=== PATIENT | female | born 1940 | race Caucasian/White ===

== ENCOUNTER 2020-12-27 10:42 | Outpatient (CLI) | payer MEDICARE, SELFPAY ==
--- NOTE | ~2020-12-27 | MM_ITS ---
EXAMINATION: MM screening [facility] BI w wilver HISTORY: Screening mammogram TECHNIQUE: Craniocaudal and mediolateral oblique 3-D tomosynthesis images were obtained and synthetic 2-D images were generated. CAD analysis was submitted and interpreted. COMPARISON: 10/19/2019, 10/04/2018, 10/11/2017 bilateral digital screening mammogram examinations BREAST PARENCHYMAL COMPOSITION: There are scattered areas of fibroglandular density. FINDINGS: There is a biopsy marker on the left. History of bilateral prior benign breast biopsies. Occasional benign calcifications are noted. There is no evidence of suspicious mass, calcification, or architectural distortion to suggest malign malia in either breast. There has been no suspicious interval change. IMPRESSION: 1. No mammographic evidence of malignancy. 2. Recommend routine screening mammography in one year. BI-RADS Category 2: Benign finding(s). Reviewed, dictated and finalized at location A. 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
== END 2020-12-27 10:43 | disposition home or self-care (01) ==
LOC: ANHIMG 10:45
PROVIDERS: Family Provider Internal Medicine; PCP Internal Medicine; Visit Provider Obstetrics & Gynecology
DX: Z12.31 Encounter for screening mammogram for malignant neoplasm of breast (principal)
CPT/HCPCS: 77063; 77067

== ENCOUNTER 2021-01-23 07:39 | Outpatient (CLI) | payer MEDICARE, SELFPAY ==
--- NOTE | ~2021-01-23 | US_ITS ---
EXAMINATION: US abdomen complete EXAM DATE: 01/23/2021 08:35 INDICATION: R10.84 - Generalized abdominal pain. TECHNIQUE: Multiple grayscale and Doppler images of the complete abdomen were obtained (by a technolo gist who performed the scan) and subsequently reviewed. There is no prior study for comparison. FINDINGS: The abdominal aorta is normal in caliber. Visualized portion IVC is patent. The pancreatic head a nd body are normal in appearance. The pancreatic tail is not visualized. The liver has normal echogenicity and contour. There are no focal liver lesions identified. There is no evidence of intrahepatic biliary duct dilation. Portal venous flow was seen in the hepatopedal , normal direction and has normal Doppler waveform. Common bile duct measures 6 mm, which is normal. The gallbladder wall is normal in thickness, with ex pected amount of distention. No sonographic evidence of pericholecystic fluid. There is cholelithia sis. Technologist performing exam reports patient did not demonstrate sonographic Eason's sign. P alexandro note that this sign is less reliable in patients who have received pain medication. Right kidney: There is normal contour and echogenicity. It measures 8.1 x 3.8 x 4.2 centimeters. T here are no focal renal lesions identified. There is no hydronephrosis. Left kidney: There is normal contour and echogenicity. It measures 9.5 x 4.5 x 4.5 centimeters. Th ere are no focal renal lesions identified. There is no hydronephrosis. The spleen measures 7.6 centimeters and is morphologically normal. IMPRESSION: Cholelithiasis. Reviewed, dictated and finalized at location B. CONSULTANT IMPRESSION: Cholelithiasis.
== END 2021-01-23 07:40 | disposition home or self-care (01) ==
PROVIDERS: PCP Internal Medicine; Visit Provider Nurse Practitioner
DX: R10.84 Generalized abdominal pain (principal); K80.20 Calculus of gallbladder without cholecystitis without obstruction
CPT/HCPCS: 76700

== ENCOUNTER 2021-01-31 09:35 | Outpatient (CLI) | payer MEDICARE, SELFPAY ==
--- NOTE | ~2021-01-31 | NM_ITS ---
EXAMINATION: NM hepatobiliary wo pharm DATE: 01/31/2021 12:13 INDICATION: Generalized abdominal pain. COMPARISON: Ultrasound 01/23/2021 TECHNIQUE: 5.1 mCi Tc-99m mebrofenin (Choletec) was administered intravenously. Scintigraphic images of the abdomen were obtained for one hour. Then, the patient drank 8 oz Ensure, and imaging was cont inued for 60 minutes. FINDINGS: There is normal clearance of radiotracer from the blood pool. There is homogeneous tracer u ptake by the liver. Activity progresses to the bowel and gallbladder. Gallbladder ejection fraction (GBEF) was 31%. Note that with this technique, normal GBEF >= 33%. IMPRESSION: 1. Low gallbladder ejection fraction, consistent with gallbladder dysfunction and/or chronic cholecy stitis. Reviewed, dictated and finalized at location A. IMPRESSION: 1. Low gallbladder ejection fraction, consistent with gallbladder dysfunction and/or chronic cholecystitis.
== END 2021-01-31 09:36 | disposition home or self-care (01) ==
PROVIDERS: PCP Internal Medicine; Visit Provider Internal Medicine
DX: R10.84 Generalized abdominal pain (principal)
CPT/HCPCS: 78226; A9537

== ENCOUNTER 2021-02-25 03:31 | Inpatient (IN) | payer MEDICARE, SELFPAY ==
[2021-02-25] VITALS (9 sets, daily range): BP systolic 131–165; BP diastolic 61–73; PULSE 57–72; RESP 16–18; TEMP 36.2–36.3; O2SAT 95–99; BMI 25.8
--- NOTE | ~2021-02-25 | XR_ITS ---
EXAMINATION: XR abdomen NG/feed tube insert EXAM DATE: 02/25/2021 05:54 INDICATION: Nasogastric tube placement. TECHNIQUE: Frontal projection(s) of the abdomen for interpretation. Comparison is made to prior exami nation from 09/23/2018. FINDINGS: Feeding tube tip projects over stomach, side-port is at the gastroesophageal junction. Thi s could be safely advanced 5 cm. Contrast within nonobstructed renal calyces. Nonspecific upper abdom inal bowel gas pattern, but please correlate with CT which demonstrated dilated small bowel. IMPRESSION: Feeding tube tip in stomach, but could be safely advanced 5 cm. Reviewed, dictated and finalized at location A.
--- NOTE | ~2021-02-25 | XR_ITS ---
EXAMINATION: XR abdomen NG/feed tube rechec EXAM DATE: 02/25/2021 09:57 INDICATION: NG advancement . TECHNIQUE: Frontal projection(s) of the abdomen for interpretation. Comparison is made to prior exami nation from earlier same date. FINDINGS: Feeding tube has been advanced, both tip and side-port project over gastric body and cardi a respectively, expected position. Imaged portion of lungs are clear. Single loop of moderately diste nded small bowel in the left upper quadrant, correlate with CT scan earlier same date. Stomach appear s decompressed. IMPRESSION: 1. Feeding tube in position. 2. Moderately dilated jejunal loop, partial versus early complete obstruction. Reviewed, dictated and finalized at location A.
--- NOTE | ~2021-02-25 | CT_ITS ---
EXAMINATION: CT abdomen pelvis w con EXAM DATE: 02/25/2021 04:27 INDICATION: Low abdominal pain. TECHNIQUE: Spiral CT of the abdomen and pelvis was performed following intravenous injection of 100 m L Omnipaque 350. Axial, coronal and sagittal images of the abdomen and pelvis were reviewed. The do se-length product (DLP) for this examination was 747.70 mGy-cm. The exposure was tailored according to patient size (auto mA exposure control), and iterative reconstruction (ASIR) was used as additiona l dose reduction technique. Comparison is made to prior examination from 09/23/2018. FINDINGS: Moderately distended jejunum with transition point indicated on axial image 96, but there i s small amount of contents within the small bowel distal to this transition, appearance is most consi stent with partial small bowel obstruction. Can't exclude early complete obstruction. No pneumatosis. The liver, spleen, adrenal glands and pancreas are unremarkable. Single small calcified gallstone, g allbladder otherwise unremarkable. Portal and splenic veins are patent. Kidneys enhance symmetrical ly. There is no hydronephrosis. The uterus is anteverted and morphologically normal. The bladder is unremarkable. There is no retroperitoneal or pelvic lymphadenopathy. There is mild scattered a rteriosclerotic disease. The appendix is normal. There is expected amount of colonic stool. No free intraperitoneal gas. The heart is normal in size. There are no pericardial or pleural effusions. Linear lingular and rig ht middle lobe subsegmental atelectasis. There are no osteoblastic or osteolytic lesions identified. IMPRESSION: Small bowel obstruction, could be partial. Can't exclude early complete obstruction. Reviewed, dictated and finalized at location A. IMPRESSION: Small bowel obstruction, could be partial. Can't exclude early comp lete obstruction.
--- NOTE | ~2021-02-25 | XR_ITS ---
EXAMINATION: XR sm bowel follow through WS EXAM DATE: 02/25/2021 13:20 INDICATION: Small bowel obstruction abnormal CT, small bowel obstruction. TECHNIQUE: Small bowel series was performed with water-soluble solution. Pulsed dose reduction fluo roscopy was used with fluoroscopic time of 0.0 minutes. A total of 3 overhead images obtained for th e exam. Correlation made to KUB earlier same date. FINDINGS: On the 15 minute projection there are several loops of moderately distended jejunum. By 30 minutes contrast had made it beyond these to normal calibered ileum, and the descending colon. The te rminal ileum is normal in appearance, was well visualized on overhead images. IMPRESSION: 1. Moderately distended jejunum, low-grade small bowel obstruction. 2. Normal transit time 30 minutes. Reviewed, dictated and finalized at location A.
--- NOTE | 2021-02-25 03:43 | ED.ABDPAIN ---
HPI - Abdominal Pain General Chief Complaint: Abdominal Pain Stated Complaint: abd pain/ n/v Time Seen by Provider: 02/25/21 03:43 History of Present Illness HPI narrative: She began haivng lower abdominal pain around 1600 yesterday. This was cramp like without radiation. The pain has since greatley improved, but she continues to have waves of severe nausea. This isassociated with a sour taste in her mouth. Not vomiting, diarrhea, constipation, fever, dysuria. She was recently diagnosed with gall stones and is to have surgery in the near future. Related Data Home Medications Medication Instructions Recorded Confirmed amlodipine 5 mg tablet 5 mg PO QACDINNER 11/02/19 02/20/21 psyllium husk 0.52 gram capsule 0.52 gm PO DAILY 11/02/19 02/20/21 rivaroxaban 20 mg tablet 20 mg PO QACDINNER 11/02/19 02/20/21 sotalol 80 mg tablet 40 mg PO HS tablet 11/02/19 02/20/21 sotalol 80 mg tablet 80 mg PO QAM tablet 11/02/19 02/20/21 cholecalciferol (vitamin D3) 25 25 mcg PO DAILY 09/10/20 02/20/21 mcg (1,000 unit) capsule lactobacillus combination no.9 4 4,000 mmu cells PO DAILY 09/10/20 02/20/21 billion cell capsule trimethoprim 100 mg tablet 100 mg PO HS tablet 09/10/20 02/20/21 zinc 50 mg tablet 50 mg PO DAILY 09/10/20 02/20/21 calcium carbonate-vitamin D3 1 tablet PO DAILY 02/20/21 02/20/21 [Calcium + D] omeprazole 20 mg PO DAILY 02/20/21 02/20/21 oxybutynin chloride 10 mg PO DAILY 02/20/21 02/20/21 Allergies Allergy/AdvReac Type Severity Reaction Status Date / Time amoxicillin Allergy Unknown Chest Verified 02/20/21 14:50 tightness/THROAT TIGHTNESS ampicillin Allergy Unknown CHEST Verified 02/20/21 14:50 TIGHTNESS/THROAT TIGHTNESS ciprofloxacin Allergy Unknown UNSURE Verified 02/20/21 14:50 meperidine Allergy Unknown N/V, Verified 02/20/21 14:50 DIZZINESS tramadol Allergy Unknown Nausea Verified 02/20/21 14:50 STEROIDS Allergy Severe SEVERE Uncoded 02/20/21 14:50 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 Review of Systems Review of Systems: All systems reviewed & are unremarkable except as noted in HPI and below Constitutional: Constitutional: Denies chills, Denies fever(s) and Denies weakness ENT: Reports system reviewed and no additional complaints, except as documented Cardiovascular: Cardiovascular: Denies chest pain Respiratory: Respiratory: Denies dyspnea Gastrointestinal: Gastrointestinal: Reports abdominal pain, Reports bloating, Denies constipation, Denies diarrhea, Reports nausea and Denies vomiting Genitourinary: Genitourinary: Denies hematuria and Denies dysuria Musculoskeletal: Musculoskeletal: Denies back pain Neurologic: Reports system reviewed and no additional complaints, except as documented [facility] Past Medical History Medical History Afib Cholecystitis Chronic UTI (urinary tract infection) GERD (gastroesophageal reflux disease) History of blood clots History of migraine headaches HTN (hypertension), benign Surgical History Surgical History H/O heart surgery cardioversion for AFIB History of left knee replacement Family History Family History Sibling Hypertension Asthma Family history of diabetes mellitus in first degree relative Father Hypertension Malignant neoplasm of prostate Family history of malignant neoplasm of urinary bladder Mother Cerebrovascular accident Uterine cancer Social History Social History Smoking packs per day: 0.75 Smoking cigarettes per day: 15.0 Years smoked: 8 Smoking pack-years: 6.00 Smoking status: Former smoker Second hand tobacco smoke exposure: No Smoking end date: 05/15/85 Alcohol intake: former Substance use: never Addition
[2021-02-25] MEDS: ONDANSETRON INJ 4 MG/2 ML VIAL IV PUSH (03:55)
[2021-02-25 03:56] LABS: Basophils Percent Auto 0.4 % (0.2-1.2); Eosinophils Absolute Auto 0.1 K/mm3 (0-0.3); Hematocrit 45.4 % (37.0-47.0); Hemoglobin 15.3 g/dL (12.0-15.0); Immature Granulocyte Absolute 0.03 K/mm3 (0.00-0.031); Immature Granulocyte Percent A 0.4 % (0-0.5); Lymphocytes Absolute Auto 2.42 K/mm3 (0.9-3.2); Lymphocytes Percent Auto 29.7 % (18.3-44.2); Mean Corpuscular HGB Conc 33.7 g/dl (32-36); Mean Corpuscular Hemoglobin 31.3 pg (26-34); Mean Corpuscular Volume 92.8 fl (80-100); Mean Platelet Volume 9.4 fl (7.4-10.4); Monocytes Absolute Auto 0.6 K/mm3 (0.1-0.6); Monocytes Percent Auto 6.8 % (2.6-8.5); Neutrophils Percent Auto 61.7 % (45.5-73.1); Platelet Count Result 268 k/mm3 (150-375); Red Blood Count 4.89 M/mm3 (4.2-5.4); Red Cell Distribution Width 13.2 % (11.5-14.5); White Blood Count 8.1 K/mm3 (4.5-10.0)
[2021-02-25 04:10] LABS: Alanine Aminotransferase 17 U/L (4-35); Albumin Level 4.7 g/dL (3.5-5.1); Alkaline Phosphatase 79 U/L (38-126); Anion Gap 5 mmol/L (8-16); Aspartate Amino Transferase 23 U/L (14-36); Bilirubin,Total 0.4 mg/dL (0.2-1.3); Blood Urea Nitrogen 11 mg/dL (7-17); Calcium 9.6 mg/dL (8.4-10.2); Carbon Dioxide 32 mmol/L (22-30); Chloride 97 mmol/L (98-107); Estimated CRCL calculation 57 ml/min; Estimated Glomerular Filt Rate > 60; Glucose 129 mg/dL (65-105); Lipase 72 U/L (23-300); Potassium 3.8 mmol/L (3.4-5.0); Sodium 134 mmol/L (137-145)
[2021-02-25] MEDS: METOCLOPRAMIDE HCL INJ 10 MG/2 ML VIAL IV PUSH (04:41)
[2021-02-25] MEDS: SODIUM CHLORIDE 0.9% IV 1,000 ML 999 ML IV CONT (04:41)
[2021-02-25] MEDS: PANTOPRAZOLE SODIUM IV 40 MG VIAL IV PUSH (04:41)
[2021-02-25 04:56] LABS: Add Urine Microscopic? YES; Appearance Urine Cloudy (Clear); Bilirubin Urine Negative (Negative); Blood Urine Negative (Negative); Color Urine Yellow (Yellow); Glucose Urine UA Negative (Negative); Ketones Urine Trace mg/dL (Negative); Leukocyte Esterase Ur Negative LEU/UL (Negative); Nitrate Urine Negative (Negative); Protein Urine Negative (Negative); Specific Grav Ur 1.011 (1.001-1.035); Urobilinogen Urine Negative mg/dL (<2.0)
[2021-02-25 05:03] LABS: RBC Urine 0-2 /hpf (0-2); Squamous Epithelial Cell Urine Rare /hpf (Few); WBC Urine 0-3 /hpf
[2021-02-25] MEDS: fentaNYL CITRATE INJ (*CRX) 100 MCG/2 ML VIAL 50 MCG IV PUSH (05:43)
--- NOTE | 2021-02-25 06:36 | PC.NURSE ---
This patient, Roxana Barragan, was admitted to 3 Med Surg Room 302-01 @ 06 . Patient/family oriented to hospital policies and general routines including ID bracelet, bed and alarms, visiting hours, pain management, procedures, bathroom and other care routines, personal items, smoking policy, room service/diet, and visiting hours. Information on how to activate the Rapid Response Team has been discussed. Patient/Family are encouraged to report perceived risks to care and to ask questions if they do not understand what they are told or what they should do.
[2021-02-25] MEDS: LACTATED RINGERS 1,000 ML 100 ML IV CONT (09:40)
--- NOTE | 2021-02-25 10:56 | PM.IMHP ---
H&P: HPI History of Present Illness Date/Time: 02/25/21 09:20 Chief Complaint: Abdominal pain Narrative: This is a 80-year-old female with a history of atrial fibrillation on chronic anticoagulation and hypertension, who presented to the ER with complaints of abdominal pain. She was recently seen in our office by Dr. Sorensen for chronic cholecystitis and was planning to be set up as an outpatient for a cholecystectomy. She reports that she has been having intermittent epigastric and RLQ abdominal pain that she has attributed to her gallbladder. Yesterday afternoon, she developed epigastric pain that worsened over the next few hours. She reports this is different than her gallbladder pain. She reports the pain began to spread across her entire abdomen and would come in waves of cramping pain. She developed bloating and nausea, but no vomiting. She reports that she was passing a lot of gas yesterday afternoon when symptoms were at their worst, but has not passed gas since admission. She also reports having smaller bowel movements than normal every morning for the past 3 mornings. She has also been eating a strict diet that includes eggs, cottage cheese, and large amounts of steamed broccoli. She had eaten a large serving of the broccoli for lunch yesterday prior to the onset of her symptoms. Due to the severe abdominal pain, she presented to the ER for further evaluation. CT scan of the abdomen and pelvis showed moderately distended jejunum with a transition point, but with a small amount of contents within the small bowel distal to this transition. Suggesting a partial small bowel obstruction. Labs were unremarkable. NG tube was placed. Our service was contacted by the ED physician for the partial small bowel obstruction. She was admitted to the medical floor and is now seen in this setting. She reports that her bloating and abdominal pain have improved. No flatus yet today, and her last BM was yesterday morning. Main complaint is the discomfort of the NG tube. No other complaints. No history of previous abdominal surgery. She last took her Xarelto around 4 pm last evening. Review of Systems Review of Systems: All systems reviewed & are unremarkable except as noted in HPI and below Constitutional: Constitutional: Reports as per HPI, Denies chills, Denies fatigue and Denies fever(s) Eyes: Eyes: Reports no additional eye complaints and Denies change in vision ENT: Reports system reviewed and no additional complaints, except as documented, Reports Normal hearing present and Denies dizziness Cardiovascular: Cardiovascular: Reports no additional cardiovascular complaints, Denies chest pain, Denies leg edema and Denies dyspnea Respiratory: Respiratory: Reports no additional respiratory complaints, Denies cough and Denies dyspnea Gastrointestinal: Gastrointestinal: Reports as per HPI, Reports no additional gastrointestinal complaints, Reports abdominal pain, Denies melena, Reports bloating, Denies hematochezia, Reports change in bowel habits (smaller stools), Reports GI cramping, Denies diarrhea, Denies loose stools, Reports nausea and Denies vomiting Genitourinary: Genitourinary: Denies hematuria and Denies dysuria Musculoskeletal: Musculoskeletal: Denies abnormal gait, Denies deformity, Denies joint swelling, Denies numbness and Denies tingling Integumentary/Breasts: Skin/Breast: Denies wounds and Denies jaundice Neurologic: Reports system reviewed and no additional complaints, except as documented, Reports Normal hearing present, Denies abnormal gait, Denies dizziness, Denies focal weakness, Denies numbness and Denies tingling Psychiatric: Psychiatric: Denies anxiety and Denies depression [facility] Past Medical History Medical History Afib Cholecystitis Chronic UTI (urinary tract infection) GERD (gastroesophageal reflux disease) History of blood clots 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
[2021-02-25] MEDS: amLODIPine BESYLATE 5 MG TABLET PO (17:09)
[2021-02-25] MEDS: SOTALOL HCL 40 MG TABLET PO (21:08)
[2021-02-26] MEDS: LACTATED RINGERS 1,000 ML 50 ML IV CONT (01:25)
[2021-02-26 06:00] VITALS: BP 116/51; PULSE 64; RESP 16; TEMP 36.4; O2SAT 98
[2021-02-26 07:59] VITALS: PULSE 73; O2SAT 97
[2021-02-26 09:46] VITALS: PULSE 68
[2021-02-26] MEDS: SOTALOL HCL 80 MG TABLET PO (09:46)
--- NOTE | 2021-02-26 12:03 | PM.DS ---
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 She had never had abdominal surgery before and has never had an obstruction. She was admitted and NG tube was placed. She did begin passing flatus shortly after being admitted. A gastrografin SBFT was obtained on 02/25/21 and this showed no evidence of bowel obstruction. She began having BMs. NG was removed on 02/25 and she was started on clear liquids. On 02/26 her diet was advanced as tolerated and she had no recurrent symptoms. She was discharged on 02/26. Status at Discharge Functional status at discharge: independent ambulation Overall status at discharge: patient is back to baseline Time Spent with Patient Time attestation: Total time spent providing and/or coordinating discharge services: Time spent: Less than 30 minutes Exam GI: Inspection: normal to inspection and non-distended GI Palp: Yes Soft to palpation, No Tenderness to palpation present (GI) and No Guarding due to palpation present (GI) Percussion: Yes normal to percussion Auscultation: normal bowel sounds DS: Data Imaging Radiologist's impression: ITS Impressions Abdomen X-Ray 02/25/21 06:31 IMPRESSION: Feeding tube tip in stomach, but could be safely advanced 5 cm. Abdomen/Pelvis CT 02/25/21 07:31 IMPRESSION: Small bowel obstruction, could be partial. Can't exclude early complete obstruction. Abdomen X-Ray 02/25/21 10:02 IMPRESSION: 1. Feeding tube in position. 2. Moderately dilated jejunal loop, partial versus early complete obstruction. Small Bowel X-Ray 02/25/21 13:24 IMPRESSION: 1. Moderately distended jejunum, low-grade small bowel obstruction. 2. Normal transit time 30 minutes. Discharge Plan Discharge Attending physician on discharge: Kevin Bellamy Discharging Clinician: Kevin Bellamy Patient Disposition: Home, Self-Care Activity: unlimited Diet: as tolerated Discharge Instructions: Stay on soft, bland diet for 1 week Patient Instructions: Antibiotic Form, Safe Use of Anticoagulants (GEN), Blood Thinners (GEN) Stand Alone Forms: General Discharge Information Follow-up/Referrals: Benjamin Rees DO [Primary Care Provider] - Follow Up with Primary Dr Discharge Medications: Continued trimethoprim 100 mg tablet 100 mg PO HS RF: 0 zinc 50 mg tablet 50 mg PO DAILY RF: 0 cholecalciferol (vitamin D3) 25 mcg (1,000 unit) capsule 25 mcg PO DAILY RF: 0 Adult 50 Plus Probiotic 4 billion cell capsule 4,000 mmu cells PO DAILY RF: 0 fluticasone propionate [Allergy Relief (fluticasone)] 50 mcg/actuation spray,suspension 1 spray NASAL DAILY PRN (Reason: allergy symptoms) Qty: 15.8 RF: 3 amlodipine 5 mg tablet 5 mg PO QACDINNER RF: 0 Xarelto 20 mg tablet 20 mg PO HS RF: 0 psyllium husk [Metamucil] 0.52 gram capsule 0.52 gm PO DAILY RF: 0 sotalol 80 mg tablet 80 mg PO QAM RF: 0 sotalol 80 mg tablet 40 mg PO HS RF: 0
[2021-02-26] MEDS: SALINE 0.65% NAS SOLN 44 ML BTL 1 SPRAY NASAL (13:52)
[2021-02-26 14:00] VITALS: BP 138/57; PULSE 63; RESP 16; TEMP 36.4; O2SAT 100
--- NOTE | 2021-02-27 07:33 | PC.NURSE ---
02/27/21 0725 patient called with concern that her nose is bleeding and has been since ng tube removed. patient wanted Dr. Bellamy number and office number was provided at this time. patient states that she will call after 8 am this morning. patient encouraged to go to ER if lightheaded/dizzy, or worsening nose bleed. patient verbalizes understanding.
== END 2021-02-26 14:20 | disposition home or self-care (01) | DRG 389 ==
LOC: ANHED 05:34 → ANH3MEDSUR 05:43
PROVIDERS: Admitting Provider Surgery; Emergency Provider Emergency Medicine; PCP Internal Medicine; Visit Provider Surgery
DX: K56.690 Other partial intestinal obstruction (principal); I48.20 Chronic atrial fibrillation, unspecified; I10 Essential (primary) hypertension; K21.9 Gastro-esophageal reflux disease without esophagitis; Z96.652 Presence of left artificial knee joint; Z79.01 Long term (current) use of anticoagulants; Z87.891 Personal history of nicotine dependence
CPT/HCPCS: 36415; 74018; 74177; 74250; 80053; 81001; 83690; 85025; 96361; 96374; 96375; 99285; A9270; C9113; J2405; J2765; J3010; J7030; J7120; Q9967

== ENCOUNTER → 2021-03-01 02:29 | Outpatient (CLI) | payer MEDICARE, SELFPAY ==
[2021-03-01 19:44] LABS: SARS-CoV-2 RNA PCR Negative
== END ==
PROVIDERS: PCP Internal Medicine; Visit Provider Surgery
DX: Z01.812 Encounter for preprocedural laboratory examination (principal); Z20.822 Contact with and (suspected) exposure to COVID-19
CPT/HCPCS: C9803; U0003; U0005

== ENCOUNTER 2021-03-05 02:30 | Day surgery (SDC) | payer MEDICARE, SELFPAY ==
[2021-02-20 15:01] VITALS: BMI 26.1
[2021-03-05] VITALS (7 sets, daily range): BP systolic 107–148; BP diastolic 55–70; PULSE 50–62; RESP 10–18; TEMP 36.2–37.3; O2SAT 97–100
--- NOTE | 2021-03-05 06:02 | ECG_ITS ---
Measurements Intervals Sacul Rate: 51 P: 56 MA: 198 QRS: 11 QRSD: 93 T: 35 QT: 492 QTc: 454 Interpretive Statements SINUS BRADYCARDIA BORDERLINE R WAVE PROGRESSION, ANTERIOR LEADS BORDERLINE ECG Electronically Signed On 03-05-2021 10:00:26 CDT by Jsoe Young D.O.
--- NOTE | 2021-03-05 07:03 | WPDHPUPDATE1 ---
History and Physical Update Update Date/Time: 03/05/21 07:03 History and Physical has been reviewed, including an updated exam of the patient. There are NO changes in the patient's condition. Risks, benefits, and alternatives have been discussed and questions answered. Patient agrees to proceed with procedure.
[2021-03-05] MEDS: LACTATED RINGERS 1,000 ML 30 ML IV CONT ×2 (09:14→11:01)
[2021-03-05] MEDS: KETOROLAC 15 MG/ML VIAL (*BKC) IV PUSH (09:15)
--- NOTE | 2021-03-05 09:37 | WPDANESEPPF ---
Anes - Initial Pre Proc Eval Procedure: Operation Date: 03/05/21 10:30 Proposed Procedures p Laparoscopic Cholecystectomy - Marvin Sorensen MD Date/Time: 03/05/21 09:37 Surgeon: Marvin Sorensen MD Pre Op Diagnosis: chronic cholecystitis with stones Patient Data Age: 80 Gender: F Height: 5 ft 8 in Weight: 78 kg Allergies Allergy/AdvReac Type Severity Reaction Status Date / Time amoxicillin Allergy Unknown Chest Verified 02/20/21 14:50 tightness/THROAT TIGHTNESS ampicillin Allergy Unknown CHEST Verified 02/20/21 14:50 TIGHTNESS/THROAT TIGHTNESS ciprofloxacin Allergy Unknown UNSURE Verified 02/20/21 14:50 meperidine AdvReac Unknown N/V, Verified 03/05/21 06:04 DIZZINESS tramadol AdvReac Unknown Nausea Verified 03/05/21 06:04 STEROIDS Allergy Severe SEVERE Uncoded 02/20/21 14:50 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 Home Medications Medication Instructions Recorded Confirmed Type amlodipine 5 mg tablet 5 mg PO QACDINNER 11/02/19 02/25/21 History psyllium husk 0.52 gram capsule 0.52 gm PO DAILY 11/02/19 02/25/21 History rivaroxaban 20 mg tablet 20 mg PO HS 11/02/19 02/25/21 History sotalol 80 mg tablet 40 mg PO HS tablet 11/02/19 02/25/21 History sotalol 80 mg tablet 80 mg PO QAM tablet 11/02/19 02/25/21 History cholecalciferol (vitamin D3) 25 25 mcg PO DAILY 09/10/20 02/25/21 History mcg (1,000 unit) capsule fluticasone propionate 50 1 spray NASAL DAILY PRN #15.8 ml 09/10/20 02/25/21 Rx mcg/actuation nasal spray,suspension lactobacillus combination no.9 4 4,000 mmu cells PO DAILY 09/10/20 02/25/21 History billion cell capsule trimethoprim 100 mg tablet 100 mg PO HS tablet 09/10/20 02/25/21 History zinc 50 mg tablet 50 mg PO DAILY 09/10/20 02/25/21 History calcium carbonate-vitamin D3 1 tablet PO DAILY 02/20/21 02/25/21 History omeprazole 20 mg PO DAILY 02/20/21 02/25/21 History oxybutynin chloride 10 mg PO DAILY 02/20/21 02/25/21 History Laboratory Tests 03/05/21 03/05/21 08:54 08:54 Amylase Pending Lipase Pending Patient hx anesthesia problems: none Family hx anesthesia problems: none PMFSH Past Medical History Medical History Afib Cholecystitis Chronic UTI (urinary tract infection) GERD (gastroesophageal reflux disease) History of blood clots 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 Does not have a healthcare power of senior trial attorney. She designates her daughter, Nicolle Suarez, to be her medical decision maker if needed. 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
[2021-03-05 09:50] LABS: Amylase 49 U/L (30-110)
[2021-03-05 09:52] LABS: Lipase 59 U/L (23-300)
[2021-03-05] MEDS: CLINDAMYCIN 900 MG/D5W 50 ML 900 MG/50 ML PIGGYBACK 50 MG IVPB (10:04)
[2021-03-05] MEDS: BUPIVACAINE/EPINEPHRINE 0.5% 30 ML VIAL INFILTRATE (10:44)
--- NOTE | 2021-03-05 11:09 | PM.PROC ---
Procedure Note - Detailed Date of procedure: 03/05/21 Pre-op diagnosis: chronic cholecystitis with stones Chronic cholecystitis, cholelithiasis Post-op diagnosis: same Procedure performed: Laparoscopic cholecystectomy Description of procedure: The patient was taken to surgery and induced into general anesthesia. The abdomen was prepped and draped. Trocars were placed in the usual fashion using 0.5% Marcaine with epinephrine and applied Medical optical trocars. A 5 millimeter camera was used. The gallbladder was decompressed with a laparoscopic aspirator. The cholecystotomy was closed with a Vicryl endo-loop. The gallbladder was retracted anterosuperiorly. Adhesions to the gallbladder were taken down so that the cholecystohepatic triangle was exposed. Traction was placed on the infundibulum. The cystic duct and cystic artery were dissected out very clearly. The gallbladder was dissected off the liver at its lower 3rd. Critical view was achieved. We securely clipped and divided the cystic duct and cystic artery. The gallbladder was then further retracted so that the peritoneal attachments to the liver could be divided. Once the gallbladder was freed entirely, it was placed in an Endo-Catch bag and retrieved through the 10 11 epigastric trocar site. The epigastric trocar was then replaced. We reviewed the right upper quadrant. It was irrigated and suctioned. All looked good with no evidence of bleeding or bile leakage. We evacuated CO2 and removed the trocar sleeves. Skin wounds were closed with subcuticular 4 O Monocryl skin suture. The wounds were dressed with Exofin surgical adhesive. Patient was awakened and taken to recovery in good condition. Sponge and needle counts were correct x2. Anesthesia: GETA and local (0.5% Marcaine with epinephrine) Surgeon: Marvin Sorensen MD Application Security Engineer: Lashell ANAYA Estimated blood loss (mL): 5 Drains: No Packing: No Pathology: yes (Gallbladder) Complications: None Condition: stable Disposition: PACU Findings: Mild chronic inflammation, no gallstones noted. No biliary ductal dilatation, no liver abnormalities.
--- NOTE | 2021-03-05 11:22 | SUR.PHASEI ---
O2 removed at 1121.
[2021-03-05] MEDS: ONDANSETRON INJ 4 MG/2 ML VIAL IV PUSH (12:08)
== END 2021-03-05 12:47 | disposition home or self-care (01) ==
PROVIDERS: PCP Internal Medicine; Visit Provider Surgery
PROC: 0FT44ZZ Resection of Gallbladder, Percutaneous Endoscopic Approach (ICD-10-PCS; CPT 47562; principal; 2021-03-05 10:30)
DX: K80.10 Calculus of gallbladder with chronic cholecystitis without obstruction (principal); I48.91 Unspecified atrial fibrillation; K21.9 Gastro-esophageal reflux disease without esophagitis; I10 Essential (primary) hypertension; Z86.711 Personal history of pulmonary embolism; Z86.718 Personal history of other venous thrombosis and embolism; Z79.01 Long term (current) use of anticoagulants; Z87.891 Personal history of nicotine dependence
CPT/HCPCS: 47562; 36415; 82150; 83690; 86850; 86900; 86901; 88304; 93005; C1713; J1100; J1885; J2405; J2704; J2710; J3010; J7120

== ENCOUNTER 2021-08-29 10:39 | Outpatient (CLI) | payer MEDICARE, SELFPAY ==
[2021-08-29 11:12] LABS: Basophils Percent Auto 0.7 % (0.2-1.2); Eosinophils Absolute Auto 0.2 K/mm3 (0-0.3); Hematocrit 41.9 % (37.0-47.0); Hemoglobin 13.9 g/dL (12.0-15.0); Immature Granulocyte Absolute 0.02 K/mm3 (0.00-0.031); Immature Granulocyte Percent A 0.4 % (0-0.5); Lymphocytes Absolute Auto 2.42 K/mm3 (0.9-3.2); Lymphocytes Percent Auto 42.6 % (18.3-44.2); Mean Corpuscular HGB Conc 33.2 g/dl (32-36); Mean Corpuscular Hemoglobin 32.6 pg (26-34); Mean Corpuscular Volume 98.1 fl (80-100); Monocytes Absolute Auto 0.5 K/mm3 (0.1-0.6); Monocytes Percent Auto 9.2 % (2.6-8.5); Neutrophils Absolute Auto 2.5 K/mm3 (1.3-6.7); Neutrophils Percent Auto 44.1 % (45.5-73.1); Platelet Count Result 257 k/mm3 (150-375); Red Blood Count 4.27 M/mm3 (4.2-5.4); Red Cell Distribution Width 13.3 % (11.5-14.5); White Blood Count 5.7 K/mm3 (4.5-10.0)
[2021-08-29 11:48] LABS: Alanine Aminotransferase 17 U/L (4-35); Albumin Level 4.1 g/dL (3.5-5.1); Alkaline Phosphatase 55 U/L (38-126); Anion Gap 6 mmol/L (8-16); Aspartate Amino Transferase 20 U/L (14-36); Bilirubin,Total 0.3 mg/dL (0.2-1.3); Blood Urea Nitrogen 14 mg/dL (7-17); Calcium 8.9 mg/dL (8.4-10.2); Carbon Dioxide 29 mmol/L (22-30); Chloride 100 mmol/L (98-107); Estimated Glomerular Filt Rate > 60; Glucose 79 mg/dL (65-110); Potassium 4.4 mmol/L (3.4-5.0); Sodium 135 mmol/L (137-145)
== END 2021-08-29 10:40 | disposition home or self-care (01) ==
PROVIDERS: PCP Internal Medicine; Visit Provider Nurse Practitioner
DX: L29.9 Pruritus, unspecified (principal); R21 Rash and other nonspecific skin eruption; E78.5 Hyperlipidemia, unspecified
CPT/HCPCS: 36415; 80053; 84443; 85025

== ENCOUNTER 2021-11-18 10:35 | Outpatient (CLI) | payer MEDICARE, SELFPAY ==
[2021-11-24 22:09] LABS: ANCA Screen Negative (Negative); Myeloperoxidase Ab <1.0 AI (<1.0); Proteinase-3 Ab <1.0 AI (<1.0); S cerevisiae Ab (IgG) 22.9 U (<=20.0)
== END 2021-11-18 10:36 | disposition home or self-care (01) ==
PROVIDERS: PCP Internal Medicine; Visit Provider Internal Medicine Gastroenterology
DX: K56.609 Unspecified intestinal obstruction, unspecified as to partial versus complete obstruction (principal)
CPT/HCPCS: 36415; 86036; 86671

== ENCOUNTER 2021-11-25 09:05 | Outpatient (CLI) | payer MEDICARE, SELFPAY ==
--- NOTE | ~2021-11-25 | CT_ITS ---
EXAMINATION: CT abdomen pelvis w con DATE: 11/25/2021 10:26 INDICATION: Weight loss. TECHNIQUE: Computed tomography (CT) of the abdomen and pelvis was performed with 100 mL Omnipaque 350 intravenous contrast. Automated exposure control and iterative reconstruction technique were employe d. The dose-length product was 331.92 mGy-cm. COMPARISON: CT abdomen and pelvis 02/25/2021 FINDINGS: The visualized portions of the lung bases demonstrate mild atelectasis. No pleural effusion . The heart size is normal. No pericardial effusion. The liver is normal. There are changes of cholec ystectomy. The spleen, pancreas, adrenal glands, and kidneys are normal. There are no dilated loops o f bowel. The appendix is normal. There are no pathologically enlarged lymph nodes. There is no free i ntraperitoneal fluid. Pelvic floor relaxation is noted. There is severe lower lumbar spondylosis. The re is a benign bone island in left ilium. IMPRESSION: 1. No etiology for weight loss. Reviewed, dictated and finalized at location B. IFIED MORTICIAN
[2021-11-25 10:17] LABS: Estimated Glomerular Filt Rate > 60
== END 2021-11-25 09:06 | disposition home or self-care (01) ==
PROVIDERS: PCP Internal Medicine; Visit Provider Internal Medicine Gastroenterology
DX: R63.4 Abnormal weight loss (principal); M47.816 Spondylosis without myelopathy or radiculopathy, lumbar region
CPT/HCPCS: 74177; Q9967

== ENCOUNTER 2021-12-31 10:02 | Outpatient (CLI) | payer MEDICARE, SELFPAY ==
--- NOTE | 2021-12-31 11:15 | NEURO_ITS ---
Impression: # Complains of numbness of lower extremities/feet. # Normal motor nerve conduction study. # Abnormal sensory nerve conduction study. # Mild evolving left plantar syndrome. # Normal needle/EMG exam. # Clinical correlation recommended. Nerve Conduction Studies Anti Sensory Summary Table Stim Site NR Peak (ms) P-T Amp (?V) Site1 Site2 Delta-P (ms) Dist (cm) Jet (m/s) Left Sup Fibular Anti Sensory (Ant Lat Mall) NO RESPONSE 14 cm NR 14 cm Ant Lat Mall 16.0 Right Sup Fibular Anti Sensory (Ant Lat Mall) NO RESPONSE 14 cm NR 14 cm Ant Lat Mall 16.0 Left Sural Anti Sensory (Lat Mall) NO RESPONSE Calf NR Calf Lat Mall 16.0 Right Sural Anti Sensory (Lat Mall) Calf 3.9 19.3 Calf Lat Mall 3.9 16.0 41 Motor Summary Table Stim Site NR Onset (ms) O-P Amp (mV) Site1 Site2 Delta-0 (ms) Dist (cm) Jet (m/s) Left Lateral Plantar Motor (ADM) Med Mall 5.2 1.7 Right Lateral Plantar Motor (ADM) Med Mall 4.5 0.0 Left Peroneal Motor (Vastus Med) Ankle 4.1 3.3 Popit Ankle 8.4 40.0 48 Popit 12.5 2.8 Right Peroneal Motor (Vastus Med) Ankle 3.8 4.5 Popit Ankle 8.2 39.0 48 Popit 12.0 3.7 Left Tibial Motor (Abd Cleaning Brev) Ankle 4.4 3.7 Knee Ankle 9.6 42.0 44 Knee 14.0 1.7 Right Tibial Motor (Abd Cleaning Brev) Ankle 4.3 4.1 Knee Ankle 9.1 41.0 45 Knee 13.4 2.4 F Wave Studies NR F-Lat (ms) L-R F-Lat (ms) Left Peroneal (Mrkrs) (EDB) 54.37 0.74 Right Peroneal (Mrkrs) (EDB) 53.64 0.74 Left Tibial (Mrkrs) (Abd Hallucis) 54.23 0.00 Right Tibial (Mrkrs) (Abd Hallucis) 54.23 0.00 EMG Side Muscle Nerve Root Ins Act Fibs Amp Dur Recrt Comment Right AntTibialis Dp Br Fibular L4-5 Nml Nml Nml Nml Nml Right Gastroc Tibial S1-2 Nml Nml Nml Nml Nml Right Fibularis Long Sup Br Fibular L5-S1 Nml Nml Nml Nml Nml Right Flex Dig Long Tibial L5-S2 Nml Nml Nml Nml Nml Right Ext Dig Brev Dp Br Fibular L5, S1 Nml Nml Nml Nml Nml Left AntTibialis Dp Br Fibular L4-5 Nml Nml Nml Nml Nml Left Gastroc Tibial S1-2 Nml Nml Nml Nml Nml Left Fibularis Long Sup Br Fibular L5-S1 Nml Nml Nml Nml Nml Left Flex Dig Long Tibial L5-S2 Nml Nml Nml Nml Nml Left Ext Dig Brev Dp Br Fibular L5, S1 Nml Nml Nml Nml Nml Right QuadratusFem QuadFemoris L4-5, S1 Nml Nml Nml Nml Nml Left QuadratusFem QuadFemoris L4-5, S1 Nml Nml Nml Nml Nml MTDD
== END 2021-12-31 10:03 | disposition home or self-care (01) ==
LOC: ANHNEURO 10:03
PROVIDERS: PCP Internal Medicine; Visit Provider Internal Medicine
DX: R20.0 Anesthesia of skin (principal); R94.130 Abnormal response to nerve stimulation, unspecified
CPT/HCPCS: 95886; 95911

== ENCOUNTER 2022-03-17 08:06 | Outpatient (CLI) | payer MEDICARE, SELFPAY ==
--- NOTE | ~2022-03-17 | MM_ITS ---
EXAMINATION: MM screening isidra BI w wilver HISTORY: Screening mammogram TECHNIQUE: Craniocaudal and mediolateral oblique 3-D tomosynthesis images were obtained and synthetic 2-D images were generated. CAD analysis was submitted and interpreted. COMPARISON: December 27, 2020, October 19, 2019, October 12, 2018 bilateral screening mammogram exam inations BREAST PARENCHYMAL COMPOSITION: There are scattered areas of fibroglandular density. FINDINGS: There is a biopsy marker on the left. History of prior bilateral benign breast biopsies. Occasional bilateral benign calcifications. Stable small bilateral axillary tail intramammary lymph nodes. There is no evidence of suspicious mas s, calcification, or architectural distortion to suggest malignancy in either breast. There has been no suspicious interval change. IMPRESSION: 1. No mammographic evidence of malignancy. 2. Recommend routine screening mammography in one year. BI-RADS Category 2: Benign finding(s). Reviewed, dictated and finalized at location A.
== END 2022-03-17 08:07 | disposition home or self-care (01) ==
LOC: ANHIMG 08:07
PROVIDERS: PCP Internal Medicine; Visit Provider Obstetrics & Gynecology
DX: Z12.31 Encounter for screening mammogram for malignant neoplasm of breast (principal)
CPT/HCPCS: 77063; 77067

== ENCOUNTER 2022-04-07 14:47 | Outpatient (CLI) | payer MEDICARE, SELFPAY ==
[2022-04-07 15:05] LABS: Basophils Absolute Auto 0.1 K/mm3 (0.0-0.1); Basophils Percent Auto 0.8 % (0.2-1.2); Eosinophils Absolute Auto 0.3 K/mm3 (0-0.3); Hematocrit 39.6 % (37.0-47.0); Hemoglobin 13.1 g/dL (12.0-15.0); Immature Granulocyte Absolute 0.01 K/mm3 (0.00-0.031); Immature Granulocyte Percent A 0.2 % (0-0.5); Lymphocytes Absolute Auto 2.86 K/mm3 (0.9-3.2); Lymphocytes Percent Auto 47.8 % (18.3-44.2); Mean Corpuscular HGB Conc 33.1 g/dl (32-36); Mean Corpuscular Hemoglobin 32.1 pg (26-34); Mean Corpuscular Volume 97.1 fl (80-100); Mean Platelet Volume 8.7 fl (7.4-10.4); Monocytes Absolute Auto 0.5 K/mm3 (0.1-0.6); Monocytes Percent Auto 8.4 % (2.6-8.5); Neutrophils Absolute Auto 2.3 K/mm3 (1.3-6.7); Neutrophils Percent Auto 37.8 % (45.5-73.1); Platelet Count Result 244 k/mm3 (150-375); Red Blood Count 4.08 M/mm3 (4.2-5.4); Red Cell Distribution Width 13.1 % (11.5-14.5)
[2022-04-07 17:06] LABS: Cholesterol 173 mg/dL (0-200); HDL Direct 43 mg/dL; Triglycerides 428 mg/dL (<150)
[2022-04-07 17:17] LABS: LDL Cholesterol Direct 67 mg/dL
[2022-04-07 18:15] LABS: Folic Acid > 20.0 ng/mL (2.76->20)
[2022-04-09 16:10] LABS: Albumin 3.9 g/dL (3.8-4.8); Alpha 1 Globulin 0.3 g/dL (0.2-0.3); Alpha 2 Globulin 0.7 g/dL (0.5-0.9); Beta 1 Globulin 0.4 g/dL (0.4-0.6); Gamma Globulin 0.9 g/dL (0.8-1.7); Protein, Total 6.4 g/dL (6.1-8.1)
== END 2022-04-07 14:48 | disposition home or self-care (01) ==
LOC: ANHLAB 14:51
PROVIDERS: PCP Internal Medicine; Visit Provider Internal Medicine
DX: R20.0 Anesthesia of skin (principal); Z51.81 Encounter for therapeutic drug level monitoring; Z79.01 Long term (current) use of anticoagulants; E78.5 Hyperlipidemia, unspecified
CPT/HCPCS: 36415; 80061; 82570; 82607; 82746; 84155; 84156; 84165; 84166; 85025

== ENCOUNTER 2022-04-13 16:05 | Emergency (ER) | payer MEDICARE, SELFPAY ==
--- NOTE | ~2022-04-13 | XR_ITS ---
EXAMINATION: XR chest 1V portable 04/13/2022 17:37 INDICATION: Cough and bodyaches PROCEDURE: AP portable chest COMPARISON: Comparison to multiple prior studies sequentially, with oldest reviewed study dated 11/2017. FINDINGS: The lungs are clear. The cardiomediastinal silhouette is within normal limits. There are no pleural effusions. There is no pneumothorax suspected. The lungs are hyperinflated which is cons istent with, but not diagnostic of chronic obstructive pulmonary disease. IMPRESSION: 1: NO ACUTE CARDIOPULMONARY DISEASE. Reviewed, dictated and finalized at location A.
[2022-04-13 16:13] VITALS: BP 134/71; PULSE 69; RESP 18; TEMP 36.8; O2SAT 98
--- NOTE | 2022-04-13 16:13 | ECG_ITS ---
Measurements Intervals [place] Rate: 70 P: 70 SD: 211 QRS: -1 QRSD: 89 T: 40 QT: 405 QTc: 437 Interpretive Statements SINUS RHYTHM WITH SINUS ARRHYTHMIA WITH FIRST DEGREE AV BLOCK ABNORMAL ECG Electronically Signed On 04-13-2022 20:16:52 CDT by Jose Young D.O.
[2022-04-13 16:26] LABS: Eosinophils Absolute Auto 0.1 K/mm3 (0-0.3); Eosinophils Percent Auto 1.5 % (0-4.4); Hematocrit 37.7 % (37.0-47.0); Hemoglobin 12.6 g/dL (12.0-15.0); Immature Granulocyte Absolute 0.01 K/mm3 (0.00-0.031); Immature Granulocyte Percent A 0.3 % (0-0.5); Lymphocytes Absolute Auto 1.11 K/mm3 (0.9-3.2); Lymphocytes Percent Auto 28.5 % (18.3-44.2); Mean Corpuscular HGB Conc 33.4 g/dl (32-36); Mean Corpuscular Hemoglobin 31.7 pg (26-34); Mean Platelet Volume 8.9 fl (7.4-10.4); Monocytes Absolute Auto 0.7 K/mm3 (0.1-0.6); Monocytes Percent Auto 18.3 % (2.6-8.5); Neutrophils Percent Auto 50.4 % (45.5-73.1); Platelet Count Result 203 k/mm3 (150-375); Red Blood Count 3.97 M/mm3 (4.2-5.4); White Blood Count 3.9 K/mm3 (4.5-10.0)
[2022-04-13 16:41] LABS: Alanine Aminotransferase 15 U/L (6-35); Alkaline Phosphatase 65 U/L (38-126); Anion Gap 5 mmol/L (8-16); Aspartate Amino Transferase 25 U/L (14-36); Bilirubin,Total 0.3 mg/dL (0.2-1.3); Blood Urea Nitrogen 7 mg/dL (7-17); Calcium 8.4 mg/dL (8.4-10.2); Carbon Dioxide 23 mmol/L (22-30); Chloride 97 mmol/L (98-107); Estimated CRCL calculation 62 ml/min; Estimated Glomerular Filt Rate > 60; Glucose 109 mg/dL (65-110); Potassium 4.1 mmol/L (3.4-5.0); Sodium 125 mmol/L (137-145)
[2022-04-13] MEDS: LACTATED RINGERS 1,000 ML 999 ML IV CONT (17:42)
[2022-04-13] MEDS: ACETAMINOPHEN 325 MG TABLET 650 MG PO (17:42)
[2022-04-13 17:47] VITALS: O2SAT 97
--- NOTE | 2022-04-13 17:52 | ED.URI ---
HPI - URI/Sore Throat General Chief Complaint: Shortness of Breath/Dyspnea Stated Complaint: sob/urrutia/exp to covid Time Seen by Provider: 04/13/22 17:16 History of Present Illness HPI Narrative: 81-year-old female who is not vaccinated for COVID and states that the last 2 days she has been having cough, headache, body aches, mild shortness of breath, and some nausea, she is still tolerating p.o. intake. Her has tested positive for COVID at home. Denies any chest pain. Related Data Home Medications Medication Instructions Recorded Confirmed psyllium husk 0.52 gram capsule 0.52 gm PO DAILY 11/02/19 03/16/22 (Metamucil) rivaroxaban 20 mg tablet (Xarelto) 20 mg PO HS 11/02/19 03/16/22 cholecalciferol (vitamin D3) 25 25 mcg PO DAILY 09/10/20 03/16/22 mcg (1,000 unit) capsule lactobacillus combination no.9 4 4,000 mmu cells PO DAILY 09/10/20 03/16/22 billion cell capsule (Adult 50 Plus Probiotic) trimethoprim 100 mg tablet 100 mg PO HS 09/10/20 03/16/22 zinc 50 mg tablet 50 mg PO DAILY 09/10/20 03/16/22 calcium carbonate 600 mg-vitamin 1 tablet PO DAILY 02/20/21 03/16/22 D3 5 mcg (200 unit) tablet mecobalamin (vitamin B12) 1,000 1,000 mcg PO DAILY 07/31/21 03/16/22 mcg chewable tablet sotalol 80 mg tablet 40 mg PO BID 09/15/21 03/16/22 Allergies Allergy/AdvReac Type Severity Reaction Status Date / Time amoxicillin Allergy Unknown Chest Verified 11/18/21 09:51 tightness/THROAT TIGHTNESS ampicillin Allergy Unknown CHEST Verified 11/18/21 09:51 TIGHTNESS/THROAT TIGHTNESS ciprofloxacin Allergy Unknown UNSURE Verified 11/18/21 09:51 meperidine AdvReac Unknown N/V, Verified 11/18/21 09:51 DIZZINESS tramadol AdvReac Unknown Nausea Verified 11/18/21 09:51 STEROIDS Allergy Severe SEVERE Uncoded 11/18/21 09:51 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 Review of Systems Review of Systems: CONST: Chills HEENT: Congestion C/V: No chest pain RESP: Cough GI: Nausea : No dysuria. M/S: Body aches SKIN: No rash. 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 Does not have a healthcare power of managing attorney. She designates her daughter, Nicolle Suarez, to be her medical decision maker if needed. 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
[2022-04-13 18:47] LABS: SARS-CoV-2 RNA PCR Positive
[2022-04-13 19:18] VITALS: BP 128/72; PULSE 78; RESP 18; O2SAT 97
== END 2022-04-13 19:19 | disposition home or self-care (01) ==
PROVIDERS: Emergency Medicine; Emergency Provider Emergency Medicine; PCP Internal Medicine
DX: U07.1 COVID-19 (principal); Z28.310 Unvaccinated for COVID-19; I48.91 Unspecified atrial fibrillation; I10 Essential (primary) hypertension; K21.9 Gastro-esophageal reflux disease without esophagitis; Z96.652 Presence of left artificial knee joint; Z87.891 Personal history of nicotine dependence; Z79.01 Long term (current) use of anticoagulants; I44.0 Atrioventricular block, first degree; Z86.718 Personal history of other venous thrombosis and embolism
CPT/HCPCS: 36415; 71045; 80053; 85025; 93005; 96360; 99283; A9270; C9803; J7120; U0003; U0005

== ENCOUNTER 2022-04-16 12:56 | Outpatient (RCR) | payer MEDICARE, SELFPAY ==
[2022-04-16 13:31] VITALS: BP 149/60; PULSE 62; RESP 20; TEMP 37.7; O2SAT 97
[2022-04-16] MEDS: ACETAMINOPHEN 325 MG TABLET 650 MG PO (13:36)
[2022-04-16] MEDS: FAMOTIDINE 20 MG TABLET PO (13:38)
[2022-04-16] MEDS: diphenhydrAMINE HCl CAP 25 MG CAPSULE PO (13:38)
[2022-04-16] MEDS: BEBTELOVIMAB 175 MG/2 ML VIAL IV PUSH (13:58)
[2022-04-16 14:41] VITALS: BP 142/54; PULSE 54; RESP 20; O2SAT 98
== END 2022-04-16 16:00 ==
LOC: AMCINF 12:56
PROVIDERS: Visit Provider Internal Medicine Hematology & Oncology
DX: U07.1 COVID-19 (principal); I25.10 Atherosclerotic heart disease of native coronary artery without angina pectoris
CPT/HCPCS: A9270; M0222; Q0222

== ENCOUNTER 2022-09-21 11:42 | Outpatient (CLI) | payer MEDICARE, SELFPAY ==
[2022-09-21 18:52] LABS: Hematocrit 40.3 % (37.0-47.0); Hemoglobin 13.5 g/dL (12.0-15.0); Mean Corpuscular HGB Conc 33.5 g/dl (32-36); Mean Corpuscular Volume 95.5 fl (80-100); Mean Platelet Volume 9.3 fl (7.4-10.4); Platelet Count Result 251 k/mm3 (150-375); Red Blood Count 4.22 M/mm3 (4.2-5.4); Red Cell Distribution Width 13.2 % (11.5-14.5); White Blood Count 6.1 K/mm3 (4.5-10.0)
[2022-09-21 19:24] LABS: Anion Gap 9 mmol/L (8-16); Blood Urea Nitrogen 13 mg/dL (7-17); Carbon Dioxide 26 mmol/L (22-30); Chloride 99 mmol/L (98-107); Estimated Glomerular Filt Rate > 60; Glucose 88 mg/dL (65-110); Potassium 4.2 mmol/L (3.4-5.0); Sodium 134 mmol/L (137-145)
== END 2022-09-21 11:43 | disposition home or self-care (01) ==
LOC: ANHGOSHLAB 11:47
PROVIDERS: PCP Internal Medicine; Visit Provider Internal Medicine
DX: E87.1 Hypo-osmolality and hyponatremia (principal); Z79.01 Long term (current) use of anticoagulants; Z51.81 Encounter for therapeutic drug level monitoring; I10 Essential (primary) hypertension
CPT/HCPCS: 36415; 80048; 85027

== ENCOUNTER 2022-12-12 15:47 | Emergency (ER) | payer MEDICARE, SELFPAY ==
--- NOTE | ~2022-12-12 | CT_ITS ---
EXAMINATION: CT cervical spine wo con DATE: 12/12/2022 17:02 INDICATION: Neck pain. Fall. TECHNIQUE: Computed tomography (CT) of the cervical spine was performed without intravenous contrast. Automated exposure control and iterative reconstruction technique were employed. The dose-length pro duct was 258.99 mGy-cm. COMPARISON: None FINDINGS: There is 4 degrees dextrocurvature of cervical spine. Vertebral body heights are normal. Th ere is severely decreased disc height at C5-C6 and C6-C7. The following disc levels are specifically discussed: C2-C3: There is mild bilateral uncovertebral joint osteoarthritis. There is mild right and moderate l eft facet joint osteoarthritis. There is no neural foraminal stenosis. There is no central canal sten osis. C3-C4: There is no uncovertebral joint osteoarthritis. There is mild right and severe left facet join t osteoarthritis. There is mild left neural foraminal stenosis. There is no central canal stenosis. C4-C5: There is mild left uncovertebral joint osteoarthritis. There is mild right and severe left fac et joint osteoarthritis. There is mild left neural foraminal stenosis. There is no central canal sten osis. C5-C6: There is severe bilateral uncovertebral joint osteoarthritis. There is mild bilateral facet humberto int osteoarthritis. There is moderate right and mild left neural foraminal stenosis. There is mild ce ntral canal stenosis. C6-C7: There is moderate right and severe left uncovertebral joint osteoarthritis. There is severe bi lateral facet joint osteoarthritis. There is mild right and moderate left neural foraminal stenosis. There is mild central canal stenosis. C7-T1: There is no uncovertebral joint osteoarthritis. There is mild right and severe left facet join t osteoarthritis. There is mild left neural foraminal stenosis. There is no central canal stenosis. IMPRESSION: 1. No fracture. 2. Severe cervical spondylosis. Reviewed, dictated and finalized at location A. PROCESS OPERATOR
--- NOTE | ~2022-12-12 | XR_ITS ---
EXAMINATION: XR femur LT min 2V DATE: 12/12/2022 16:53 INDICATION: Left lower limb pain. Fall. TECHNIQUE: 2 views of left femur on 5 radiographs were obtained. COMPARISON: Left knee radiographs 03/21/2018 FINDINGS: There is a total left knee arthroplasty in near-anatomic alignment without patellar resurfa cing. No periprosthetic lucency to suggest loosening or infection. No fracture. There are osteophytes of the patella. No knee joint effusion. There is moderate left hip osteoarthritis. There is mild lum bar spondylosis. IMPRESSION: 1. Total left knee arthroplasty in near-anatomic alignment. 2. Moderate left hip osteoarthritis. Reviewed, dictated and finalized at location A. RACT ADMIN
--- NOTE | ~2022-12-12 | XR_ITS ---
EXAMINATION: XR foot LT min 3V DATE: 12/12/2022 16:53 INDICATION: Left foot pain. Fall. TECHNIQUE: 4 views of left foot were obtained. COMPARISON: Left ankle radiographs 09/19/2018, left foot radiographs 01/04/2008 FINDINGS: Bone alignment is normal. No fracture. There is mild osteoarthritis of second and third met atarsophalangeal joints and many of the interphalangeal joints and talonavicular joint. There are ent hesophytes at the posterior and plantar aspects of calcaneal tuberosity and dorsal aspect of navicula r. IMPRESSION: 1. Mild polyarticular osteoarthritis. Reviewed, dictated and finalized at location A. WARE APPLICATIONS DESIGNER
--- NOTE | ~2022-12-12 | CT_ITS ---
EXAMINATION: CT brain wo con DATE: 12/12/2022 17:02 INDICATION: Head injury. TECHNIQUE: Computed tomography (CT) of the head was performed without intravenous contrast. The mA wa s adjusted according to patient size. Iterative reconstruction technique was employed. The dose-lengt h product was 605.33 mGy-cm. COMPARISON: Head CT 05/10/2011 FINDINGS: There is no intracranial hemorrhage, acute infarction, or abnormal intracranial mass lesion . The ventricles are normal in size. There are likely changes of ocular lens replacement surgeries. T here is mild mucosal thickening in the ethmoid sinuses. The mastoid air cells are normal. IMPRESSION: 1. Normal brain. Reviewed, dictated and finalized at location A. RER WRECKING AND SALVAGING IMPRESSION: 1. Normal brain.
[2022-12-12 15:50] VITALS: BP 167/65; PULSE 70; RESP 20; TEMP 36.3; O2SAT 100
--- NOTE | 2022-12-12 16:26 | ED.FALL ---
HPI - Fall General Chief Complaint: Fall Stated Complaint: FALL, L LEG/KNEE PAIN Time Seen by Provider: 12/12/22 15:58 History of Present Illness HPI Narrative: 82-year-old female presented emergency department for evaluation of left thigh pain. Patient states that she was walking and tripped over a pipe causing her to fall backwards. Patient states during the fall she twisted her left knee bent on her buttocks and fell backwards and struck her head. Patient states that she did not have any loss of consciousness. On initial evaluation patient denied any associated neck pain. Patient was complaining of left thigh left knee pain. Patient also states that she did strike her toes on her left foot and was complaining of left toe pain. Patient does take rivaroxaban Related Data Home Medications Medication Instructions Recorded Confirmed psyllium husk 0.52 gram capsule 0.52 gm PO DAILY 11/02/19 09/21/22 (Metamucil) rivaroxaban 20 mg tablet (Xarelto) 20 mg PO HS 11/02/19 09/21/22 cholecalciferol (vitamin D3) 25 25 mcg PO DAILY 09/10/20 09/21/22 mcg (1,000 unit) capsule lactobacillus combination no.9 4 4,000 mmu cells PO DAILY 09/10/20 09/21/22 billion cell capsule (Adult 50 Plus Probiotic) zinc 50 mg tablet 50 mg PO DAILY 09/10/20 09/21/22 calcium carbonate 600 mg-vitamin 1 tablet PO DAILY 02/20/21 09/21/22 D3 5 mcg (200 unit) tablet mecobalamin (vitamin B12) 1,000 1,000 mcg PO DAILY 07/31/21 09/21/22 mcg chewable tablet sotalol 80 mg tablet 40 mg PO BID 09/15/21 09/21/22 trimethoprim 100 mg tablet 100 mg PO DAILY 09/21/22 09/21/22 Allergies Allergy/AdvReac Type Severity Reaction Status Date / Time amoxicillin Allergy Unknown Chest Verified 12/12/22 16:00 tightness/THROAT TIGHTNESS ampicillin Allergy Unknown CHEST Verified 12/12/22 16:00 TIGHTNESS/THROAT TIGHTNESS ciprofloxacin Allergy Unknown UNSURE Verified 12/12/22 16:00 meperidine AdvReac Unknown N/V, Verified 12/12/22 16:00 DIZZINESS tramadol AdvReac Unknown Nausea Verified 12/12/22 16:00 STEROIDS Allergy Severe SEVERE Uncoded 12/12/22 16:00 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 Review of Systems Review of Systems: CONSTITUTIONAL: Denies fever, chills, or sweats. EYES: Denies visual changes, redness, or discharge. ENT: Denies rhinorrhea, congestion, sore throat, or otalgia. CARDIOVASCULAR: Denies chest pain, palpitations, or edema. RESPIRATORY: Denies cough or dyspnea. GASTROINTESTINAL: Denies abdominal pain, nausea, vomiting, or diarrhea. GENITOURINARY: Denies dysuria or hematuria. SKIN: Denies rash or itching. MUSCULOSKELETAL: See HPI NEUROLOGIC: Denies headache, numbness, or weakness. 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71 History of migraine headaches HTN (hypertension), benign Screening for breast cancer Surgical History Surgical History H/O heart surgery cardioversion for AFIB H/O lumpectomy x 4 History of colposcopy (11/25/16) colpo/ bx - Benign History of left knee replacement (~2011) left knee Hx laparoscopic cholecystectomy Family History Family History Sibling Hypertension Asthma Family history of diabetes mellitus in first degree relative Father Hypertension Malignant neoplasm of prostate Family history of malignant neoplasm of urinary bladder Mother Cerebrovascular accident Uterine cancer Social History Social History Social History: Wishes to be a full code. Does not have a healthcare power of
== END 2022-12-12 17:59 | disposition home or self-care (01) ==
PROVIDERS: Emergency Provider Emergency Medicine; PCP Internal Medicine
DX: S76.912A Strain of unspecified muscles, fascia and tendons at thigh level, left thigh, initial encounter (principal); S09.90XA Unspecified injury of head, initial encounter; S19.9XXA Unspecified injury of neck, initial encounter; I48.91 Unspecified atrial fibrillation; K21.9 Gastro-esophageal reflux disease without esophagitis; Z96.652 Presence of left artificial knee joint; Z86.718 Personal history of other venous thrombosis and embolism; Z87.891 Personal history of nicotine dependence; Z79.01 Long term (current) use of anticoagulants; M16.12 Unilateral primary osteoarthritis, left hip; M19.072 Primary osteoarthritis, left ankle and foot; M47.812 Spondylosis without myelopathy or radiculopathy, cervical region; W18.09XA Striking against other object with subsequent fall, initial encounter
CPT/HCPCS: 70450; 72125; 73552; 73630; 99284

== ENCOUNTER → 2023-01-14 11:06 | Outpatient (CLI) | payer MEDICARE, SELFPAY ==
--- NOTE | ~2023-01-14 | XR_ITS ---
Right Knee Technique: AP, lateral, and sunrise views were obtained. Clinical History: Pain Findings: No fracture or dislocation is seen. Osseous alignment is anatomic. Moderate degenerative sp urring of the patellofemoral compartment present. Mild degenerative spurring at the medial lateral humberto int lines present. Soft tissues are unremarkable. No joint effusion is seen. 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 Reviewed, dictated and finalized at location M. 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
--- NOTE | ~2023-01-14 | XR_ITS ---
AP lateral views of the right hip Clinical history: Pain Findings: No acute fracture or dislocation is seen. Osseous alignment is anatomic. Right hip and righ t SI joint are preserved. Soft tissues are unremarkable. Impression: No significant abnormality is seen. Reviewed, dictated and finalized at [facility]. DENTIAL PEST CONTROL TECHNICIAN Impression: No significant abnormality is seen.
== END ==
PROVIDERS: PCP Internal Medicine; Visit Provider Clinical Nurse Specialist
DX: M17.11 Unilateral primary osteoarthritis, right knee (principal); M25.551 Pain in right hip
CPT/HCPCS: 73502; 73562

== ENCOUNTER 2023-02-22 11:02 | Outpatient (CLI) | payer MEDICARE, SELFPAY ==
[2023-02-22 19:31] LABS: Hematocrit 43.7 % (37.0-47.0); Hemoglobin 14.3 g/dL (12.0-15.0); Mean Corpuscular HGB Conc 32.7 g/dl (32-36); Mean Corpuscular Hemoglobin 31.4 pg (26-34); Mean Corpuscular Volume 95.8 fl (80-100); Mean Platelet Volume 9.1 fl (7.4-10.4); Platelet Count Result 305 k/mm3 (150-375); Red Blood Count 4.56 M/mm3 (4.2-5.4); Red Cell Distribution Width 12.5 % (11.5-14.5); White Blood Count 6.5 K/mm3 (4.5-10.0)
[2023-02-22 20:43] LABS: Alanine Aminotransferase 21 U/L (6-35); Albumin Level 4.2 g/dL (3.5-5.1); Alkaline Phosphatase 57 U/L (38-126); Anion Gap 5 mmol/L (8-16); Aspartate Amino Transferase 25 U/L (14-36); Bilirubin,Total 0.5 mg/dL (0.2-1.3); Blood Urea Nitrogen 13 mg/dL (7-17); Calcium 9.1 mg/dL (8.4-10.2); Carbon Dioxide 31 mmol/L (22-30); Chloride 97 mmol/L (98-107); Estimated Glomerular Filt Rate > 60; Glucose 85 mg/dL (65-110); Potassium 4.8 mmol/L (3.4-5.0); Sodium 133 mmol/L (137-145); Vitamin D 25 Hydroxy 61.5 ng/mL
== END 2023-02-22 11:03 | disposition home or self-care (01) ==
LOC: ANHGOSHLAB 11:04
PROVIDERS: PCP Internal Medicine; Visit Provider Internal Medicine
DX: E55.9 Vitamin D deficiency, unspecified (principal); I10 Essential (primary) hypertension; I48.91 Unspecified atrial fibrillation; E87.1 Hypo-osmolality and hyponatremia
CPT/HCPCS: 36415; 80053; 82306; 85027

== ENCOUNTER 2023-06-07 14:01 | Outpatient (CLI) | payer MEDICARE, SELFPAY ==
--- NOTE | 2023-06-07 14:35 | ECG_ITS ---
Measurements Intervals [employer] Rate: 56 P: 68 GA: 182 QRS: 13 QRSD: 87 T: 45 QT: 442 QTc: 429 Interpretive Statements SINUS BRADYCARDIA BASELINE WANDER- AVR, V1 BORDERLINE ECG COMPARED TO ECG 04/13/2022 16:11:17 SINUS BRADYCARDIA NOW PRESENT Electronically Signed On 06-07-2023 14:49:21 CDT by Jose Young D.O.
[2023-06-07 15:26] LABS: Basophils Percent Auto 0.6 % (0.2-1.2); Eosinophils Absolute Auto 0.1 K/mm3 (0-0.3); Eosinophils Percent Auto 2.3 % (0-4.4); Hematocrit 38.9 % (37.0-47.0); Hemoglobin 12.8 g/dL (12.0-15.0); Immature Granulocyte Absolute 0.03 K/mm3 (0.00-0.031); Immature Granulocyte Percent A 0.5 % (0-0.5); Lymphocytes Absolute Auto 2.36 K/mm3 (0.9-3.2); Mean Corpuscular HGB Conc 32.9 g/dl (32-36); Mean Corpuscular Hemoglobin 31.8 pg (26-34); Mean Corpuscular Volume 96.8 fl (80-100); Mean Platelet Volume 9.4 fl (7.4-10.4); Monocytes Absolute Auto 0.5 K/mm3 (0.1-0.6); Monocytes Percent Auto 8.5 % (2.6-8.5); Neutrophils Absolute Auto 3.1 K/mm3 (1.3-6.7); Neutrophils Percent Auto 50.1 % (45.5-73.1); Platelet Count Result 269 k/mm3 (150-375); Red Blood Count 4.02 M/mm3 (4.2-5.4); Red Cell Distribution Width 13.4 % (11.5-14.5); White Blood Count 6.2 K/mm3 (4.5-10.0)
[2023-06-07 15:31] LABS: Appearance Urine Clear (Clear); Bacteria Urine None Seen /hpf; Bilirubin Urine Negative (Negative); Blood Urine Negative (Negative); Color Urine Yellow (Yellow); Glucose Urine UA Negative (Negative); Ketones Urine Negative (Negative); Leukocyte Esterase Ur Trace LEU/UL (Negative); Nitrate Urine Negative (Negative); Non Pathogenic Casts 0-2; Protein Urine Negative (Negative); RBC Urine 0-2 /hpf (0-2); Specific Grav Ur 1.005 (1.001-1.035); Squamous Epithelial Cell Urine None seen /hpf (Few); Urobilinogen Urine 0.2 mg/dL (<2.0); WBC Urine 0-5 /hpf
[2023-06-07 15:34] LABS: Anion Gap 7 mmol/L (8-16); Blood Urea Nitrogen 14 mg/dL (7-17); Calcium 8.7 mg/dL (8.4-10.2); Carbon Dioxide 28 mmol/L (22-30); Chloride 97 mmol/L (98-107); Estimated Glomerular Filt Rate > 60; Glucose 95 mg/dL (65-110); Potassium 4.2 mmol/L (3.4-5.0); Sodium 132 mmol/L (137-145)
[2023-06-07 15:35] LABS: Add Urine Microscopic? YES
== END 2023-06-07 14:02 | disposition home or self-care (01) ==
PROVIDERS: PCP Internal Medicine; Visit Provider Orthopaedic Surgery
DX: M17.11 Unilateral primary osteoarthritis, right knee (principal); I10 Essential (primary) hypertension; N39.0 Urinary tract infection, site not specified; R94.31 Abnormal electrocardiogram [ECG] [EKG]
CPT/HCPCS: 36415; 80048; 81001; 85025; 93005

== ENCOUNTER 2023-06-17 13:06 | Outpatient (CLI) | payer MEDICARE, SELFPAY ==
--- NOTE | ~2023-06-17 | US_ITS ---
EXAMINATION: US venous doppler [facility] DATE: 06/17/2023 14:08 INDICATION: Left lower limb pain. Presurgical planning prior to a knee arthroplasty with prior blood clots.. TECHNIQUE: Grayscale ultrasound images without and with compression and Doppler ultrasound images of the bilateral lower extremity veins were obtained. COMPARISON: None. FINDINGS: The visualized portions of right common femoral vein, profunda (deep) femoral vein, femoral vein, pop liteal vein, posterior tibial veins, peroneal veins, gastrocnemius vein and greater saphenous vein ou tflow are patent. The visualized portions of left common femoral vein, profunda femoral vein, femoral vein, popliteal v ein, posterior tibial veins, peroneal veins, gastrocnemius vein and greater saphenous vein outflow ar e patent. IMPRESSION: 1. No deep venous thrombosis in either lower limb. Reviewed, dictated and finalized at location A.
== END 2023-06-17 13:07 | disposition home or self-care (01) ==
PROVIDERS: PCP Internal Medicine; Visit Provider Orthopaedic Surgery
DX: Z01.818 Encounter for other preprocedural examination (principal); Z86.718 Personal history of other venous thrombosis and embolism
CPT/HCPCS: 93970

== ENCOUNTER 2023-07-12 08:12 | Outpatient (CLI) | payer MEDICARE, SELFPAY ==
--- NOTE | ~2023-07-12 | MM_ITS ---
EXAMINATION: MM screening [facility] BI w wilver HISTORY: Screening mammogram TECHNIQUE: Craniocaudal and mediolateral oblique 3-D tomosynthesis images were obtained and synthetic 2-D images were generated. CAD analysis was submitted and interpreted. COMPARISON: 03/17/2022, 12/27/2020, 10/19/2019 BREAST PARENCHYMAL COMPOSITION: There are scattered areas of fibroglandular density. FINDINGS: Scattered benign-appearing calcifications are present. No suspicious mass, calcification, o r architectural distortion are identified in either breast to suggest malignancy. There has been no s uspicious interval change. IMPRESSION: 1. No mammographic evidence of malignancy. 2. Recommend routine screening mammography while the patient remains in good health. BI-RADS Category 2: Benign finding(s). Reviewed, dictated and finalized at location A. IMPRESSION: 1. No mammographic evidence of malignancy. 2. Recommend routine screening mammography while the patient remains in good he alth. BI-RADS Category 2: Benign finding(s).
== END 2023-07-12 08:13 | disposition home or self-care (01) ==
LOC: ANHIMG 08:14
PROVIDERS: PCP Internal Medicine; Visit Provider Obstetrics & Gynecology
DX: Z12.31 Encounter for screening mammogram for malignant neoplasm of breast (principal)
CPT/HCPCS: 77063; 77067

== ENCOUNTER 2023-09-12 07:01 | Emergency (ER) | payer MEDICARE, SELFPAY ==
--- NOTE | ~2023-09-12 | XR_ITS ---
XR chest 2V DATE: 09/12/2023 08:06 INDICATION: Palpitations, hypertension. History of atrial fibrillation. TECHNIQUE: PA and lateral views COMPARISON: 04/13/2022 portable AP chest at 1726 hours FINDINGS: Bilateral hyperinflation. There is discoid atelectasis or scarring at the lingula. No pulmo nary consolidation, pleural effusion, pulmonary vascular congestion or pneumothorax is detected. Normal heart size. Minimal aortic tortuosity. No hilar or mediastinal enlargement. There is osteopenia. Degenerative spurring of the thoracic spine. Osteoarthritis at the left glenohum eral joint. IMPRESSION: Mild discoid atelectasis or scarring at the lingula Moderate bilateral hyperinflation Reviewed, dictated and finalized at location A.
--- NOTE | 2023-09-12 07:07 | ECG_ITS ---
Measurements Intervals [place] Rate: 59 P: 32 PA: 208 QRS: 5 QRSD: 90 T: 41 QT: 440 QTc: 439 Interpretive Statements SINUS BRADYCARDIA WITH FIRST-DEGREE AV BLOCK BORDERLINE ECG COMPARED TO ECG 06/07/2023 14:42:12 NO SIGNIFICANT CHANGES Electronically Signed On 09-12-2023 13:44:32 CDT by Christiano Liu M.D.
[2023-09-12 07:09] VITALS: BP 179/76; PULSE 61; RESP 18; TEMP 36.2; O2SAT 99
--- NOTE | 2023-09-12 07:31 | ED.RECABL ---
HPI - Recheck/Abnormal Lab/Rx General Chief Complaint: Recheck/Abnormal Lab/Rx Stated Complaint: HTN, i think im in afib Time Seen by Provider: 09/12/23 07:07 History of Present Illness HPI narrative: This is an 82-year-old female, with history of A-fib on sotalol and Xarelto, who presents to the emergency department with elevated blood pressure. The patient states last night, she had the sensation of palpitations, similar to episodes of A-fib. She checked her blood pressure and noted it was elevated to the 180s over 90s. She slept and checked her pressure again this morning and it was also elevated. She states she has previously had blurred vision, associated with bleeding in the right eye, related to a previous retinal tear. She has no other complaints at this time Related Data Home Medications Medication Instructions Recorded Confirmed rivaroxaban 20 mg tablet (Xarelto) 20 mg PO HS 11/02/19 09/09/23 cholecalciferol (vitamin D3) 25 25 mcg PO DAILY 09/10/20 09/09/23 mcg (1,000 unit) capsule zinc 50 mg tablet 50 mg PO DAILY 09/10/20 09/09/23 calcium carbonate 600 mg-vitamin 1 tablet PO DAILY 02/20/21 09/09/23 D3 5 mcg (200 unit) tablet mecobalamin (vitamin B12) 1,000 1,000 mcg PO DAILY 07/31/21 09/09/23 mcg chewable tablet sotalol 80 mg tablet 40 mg PO BID 09/15/21 09/09/23 trimethoprim 100 mg tablet 100 mg PO DAILY 09/21/22 09/09/23 Allergies Allergy/AdvReac Type Severity Reaction Status Date / Time cortisone Allergy Intermediate Hypertensio Verified 09/09/23 11:07 n amoxicillin Allergy Unknown Chest Verified 09/09/23 11:07 tightness/THROAT TIGHTNESS ampicillin Allergy Unknown CHEST Verified 09/09/23 11:07 TIGHTNESS/THROAT TIGHTNESS ciprofloxacin Allergy Unknown UNSURE Verified 09/09/23 11:07 meperidine AdvReac Unknown N/V, Verified 09/09/23 11:07 DIZZINESS tramadol AdvReac Unknown Nausea Verified 09/09/23 11:07 STEROIDS Allergy Severe SEVERE Uncoded 09/09/23 11:07 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 Review of Systems Review of Systems: CONSTITUTIONAL: Denies fever, chills, or sweats. EYES: Denies visual changes, redness, or discharge. CARDIOVASCULAR: Palpitations denies chest pain, or edema. RESPIRATORY: Denies cough or dyspnea. GASTROINTESTINAL: Denies abdominal pain, nausea, vomiting, or diarrhea. GENITOURINARY: Denies dysuria or hematuria. SKIN: Denies rash or itching. MUSCULOSKELETAL: Denies back pain, joint pain, or myalgia. NEUROLOGIC: Denies headache, numbness, dizziness, or weakness. PSYCHIATRIC: Denies anxiety or depression. 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71 History of migraine headaches HTN (hypertension), benign Hyponatremia Right knee DJD SBO (small bowel obstruction) Screening for breast cancer Weight loss Surgical History Surgical History H/O heart surgery cardioversion for AFIB H/O lumpectomy x 4 History of colposcopy (11/25/16) colpo/ bx - Benign History of left knee replacement (~2011) left knee Hx laparoscopic cholecystectomy Family History Family History Sibling Hypertension Asthma Family history of diabetes mellitus in first degree relative Father Hypertension Malignant neoplasm of prostate Family history of malignant neoplasm of urinary bladder Mother Cerebrovascular accident Uterine cancer Social History Social History (Reviewed 09/12/23 @ 07:32
[2023-09-12] MEDS: amLODIPine BESYLATE 5 MG TABLET PO (07:40)
[2023-09-12 07:41] LABS: Basophils Percent Auto 0.6 % (0.2-1.2); Eosinophils Absolute Auto 0.2 K/mm3 (0-0.3); Eosinophils Percent Auto 3.1 % (0-4.4); Hematocrit 40.6 % (37.0-47.0); Immature Granulocyte Absolute 0.01 K/mm3 (0.00-0.031); Immature Granulocyte Percent A 0.2 % (0-0.5); Lymphocytes Absolute Auto 1.95 K/mm3 (0.9-3.2); Mean Corpuscular HGB Conc 34.5 g/dl (32-36); Mean Corpuscular Hemoglobin 32.9 pg (26-34); Mean Corpuscular Volume 95.3 fl (80-100); Mean Platelet Volume 9.3 fl (7.4-10.4); Monocytes Absolute Auto 0.5 K/mm3 (0.1-0.6); Monocytes Percent Auto 11.1 % (2.6-8.5); Neutrophils Absolute Auto 2.2 K/mm3 (1.3-6.7); Platelet Count Result 258 k/mm3 (150-375); Red Blood Count 4.26 M/mm3 (4.2-5.4); Red Cell Distribution Width 13.1 % (11.5-14.5); White Blood Count 4.9 K/mm3 (4.5-10.0)
[2023-09-12 07:47] VITALS: BP 181/72; PULSE 64; RESP 20
[2023-09-12 07:51] LABS: Alanine Aminotransferase 19 U/L (6-35); Albumin Level 3.9 g/dL (3.5-5.1); Alkaline Phosphatase 60 U/L (38-126); Anion Gap 7 mmol/L (8-16); Aspartate Amino Transferase 22 U/L (14-36); Bilirubin,Total 0.7 mg/dL (0.2-1.3); Blood Urea Nitrogen 10 mg/dL (7-17); Carbon Dioxide 25 mmol/L (22-30); Chloride 101 mmol/L (98-107); Estimated CRCL calculation 53 ml/min; Estimated Glomerular Filt Rate > 60; Glucose 99 mg/dL (65-110); Lipase 97 U/L (23-300); Potassium 4.2 mmol/L (3.4-5.0); Sodium 133 mmol/L (137-145)
[2023-09-12 08:01] VITALS: BP 147/58
[2023-09-12 08:03] LABS: INR 1.4; Troponin I < 0.012 ng/mL (0.000-0.034)
[2023-09-12 08:05] LABS: Partial Thromboplastin Time 29.4 SECONDS (22.3-36.8)
== END 2023-09-12 08:35 | disposition home or self-care (01) ==
PROVIDERS: Emergency Provider Preventive Medicine Aerospace Medicine; PCP Internal Medicine
DX: I10 Essential (primary) hypertension (principal); I48.91 Unspecified atrial fibrillation; Z79.01 Long term (current) use of anticoagulants; Z87.891 Personal history of nicotine dependence
CPT/HCPCS: 36415; 71046; 80053; 83690; 84484; 85025; 85610; 85730; 93005; 99284; A9270

== ENCOUNTER 2023-10-13 21:36 | Outpatient (NON) | payer MEDICARE, SELFPAY | END 2023-10-13 21:37 | disposition home or self-care (01) | LOC: ANHGOSHLAB 21:41 | PROVIDERS: PCP Internal Medicine; Visit Provider Nurse Practitioner Family | DX: R35.0 Frequency of micturition (principal) | CPT/HCPCS: 87077; 87086; 87186 ==

== ENCOUNTER 2023-12-02 14:31 | Outpatient (NON) | payer MEDICARE, SELFPAY ==
[2023-12-02 19:00] LABS: Appearance Urine Cloudy (Clear); Bacteria Urine 4+ /hpf; Bilirubin Urine Negative (Negative); Blood Urine Negative (Negative); Color Urine Yellow (Yellow); Glucose Urine UA Negative (Negative); Ketones Urine Negative (Negative); Leukocyte Esterase Ur 3+ LEU/UL (Negative); Nitrate Urine Positive (Negative); Protein Urine Negative (Negative); RBC Urine 0-2 /hpf (0-2); Specific Grav Ur 1.005 (1.001-1.035); Squamous Epithelial Cell Urine None seen /hpf (Few); Urobilinogen Urine 0.2 mg/dL (<2.0); WBC Urine 21-50 /hpf
[2023-12-02 19:19] LABS: Add Urine Microscopic? YES
== END 2023-12-02 14:32 | disposition home or self-care (01) ==
PROVIDERS: PCP Internal Medicine; Visit Provider Nurse Practitioner
DX: N39.0 Urinary tract infection, site not specified (principal)
CPT/HCPCS: 81001; 87077; 87086; 87186

== ENCOUNTER 2024-01-20 10:25 | Outpatient (CLI) | payer MEDICARE, SELFPAY ==
[2024-01-20 19:24] LABS: Alanine Aminotransferase 20 U/L (6-35); Albumin Level 3.9 g/dL (3.5-5.1); Alkaline Phosphatase 76 U/L (38-126); Anion Gap 2 mmol/L (8-16); Aspartate Amino Transferase 34 U/L (14-36); Bilirubin,Total 0.5 mg/dL (0.2-1.3); Blood Urea Nitrogen 11 mg/dL (7-17); Calcium 9.3 mg/dL (8.4-10.2); Carbon Dioxide 32 mmol/L (22-30); Chloride 100 mmol/L (98-107); Estimated Glomerular Filt Rate > 60; Glucose 89 mg/dL (65-110); Potassium 4.3 mmol/L (3.4-5.0); Sodium 134 mmol/L (137-145)
[2024-01-20 19:41] LABS: Basophils Absolute Auto 0.1 K/mm3 (0.0-0.1); Basophils Percent Auto 0.9 % (0.2-1.2); Eosinophils Absolute Auto 0.3 K/mm3 (0-0.3); Eosinophils Percent Auto 5.6 % (0-4.4); Hematocrit 41.2 % (37.0-47.0); Hemoglobin 13.4 g/dL (12.0-15.0); Immature Granulocyte Absolute 0.01 K/mm3 (0.00-0.031); Immature Granulocyte Percent A 0.2 % (0-0.5); Lymphocytes Percent Auto 43.2 % (18.3-44.2); Mean Corpuscular HGB Conc 32.5 g/dl (32-36); Mean Corpuscular Hemoglobin 31.8 pg (26-34); Mean Corpuscular Volume 97.6 fl (80-100); Mean Platelet Volume 9.6 fl (7.4-10.4); Monocytes Absolute Auto 0.5 K/mm3 (0.1-0.6); Monocytes Percent Auto 10.2 % (2.6-8.5); Neutrophils Absolute Auto 2.1 K/mm3 (1.3-6.7); Neutrophils Percent Auto 39.9 % (45.5-73.1); Platelet Count Result 254 k/mm3 (150-375); Red Blood Count 4.22 M/mm3 (4.2-5.4); Red Cell Distribution Width 13.1 % (11.5-14.5); White Blood Count 5.3 K/mm3 (4.5-10.0)
[2024-01-20 20:29] LABS: Vitamin D 25 Hydroxy 59.6 ng/mL
== END 2024-01-20 10:26 | disposition home or self-care (01) ==
LOC: ANHGOSHLAB 10:27
PROVIDERS: PCP Internal Medicine; Visit Provider Clinical Nurse Specialist
DX: E55.9 Vitamin D deficiency, unspecified (principal); E87.1 Hypo-osmolality and hyponatremia; I10 Essential (primary) hypertension; N39.0 Urinary tract infection, site not specified
CPT/HCPCS: 36415; 80053; 82306; 84443; 85025

== ENCOUNTER 2024-05-10 12:40 | Outpatient (CLI) | payer MEDICARE, SELFPAY ==
--- NOTE | ~2024-05-10 | MR_ITS ---
EXAMINATION: MR orbits face neck wo/w con DATE: 05/10/2024 16:21 INDICATION: Optic atrophy. TECHNIQUE: Magnetic resonance imaging (MRI) of the orbits was performed without and with 15 mL MultiH ance intravenous contrast. COMPARISON: Brain MRI 12/18/2018 FINDINGS: There are scattered areas of nonspecific increased T2-weighted signal intensity in the cere bral white matter, which is within normal limits for the patient's age. There is no intracranial hemo rrhage, acute infarction, or abnormal intracranial mass lesion. The ventricles are normal in size. Th ere are likely changes of ocular lens replacement surgeries. The extraocular muscles, optic nerves, a nd optic chiasm are normal. The paranasal sinuses are clear. The mastoid air cells are normal. IMPRESSION: 1. Normal optic nerves. 2. Normal aging brain. Reviewed, dictated and finalized at location A.
== END 2024-05-10 12:41 ==
PROVIDERS: PCP Internal Medicine
DX: H47.20 Unspecified optic atrophy (principal)
CPT/HCPCS: 70543; A9577

== ENCOUNTER 2024-08-01 09:42 | Outpatient (CLI) | payer MEDICARE, SELFPAY ==
--- NOTE | ~2024-08-01 | MM_ITS ---
EXAMINATION: MM screening [facility] BI w wilver HISTORY: Screening mammogram TECHNIQUE: Craniocaudal and mediolateral oblique 3-D tomosynthesis images were obtained and synthetic 2-D images were generated. CAD analysis was submitted and interpreted. COMPARISON: 07/12/2023, 03/17/2022, 12/27/2020, 10/19/2019 BREAST PARENCHYMAL COMPOSITION:Not Dense. There are scattered areas of fibroglandular density. FINDINGS: No suspicious mass, calcification, or architectural distortion are identified in either sharmaine ast to suggest malignancy. There has been no suspicious interval change. IMPRESSION: No mammographic evidence of malignancy. Recommend routine screening mammography in one year. BI-RADS Category 1: Negative Reviewed, dictated and finalized at location .
== END 2024-08-01 09:43 | disposition home or self-care (01) ==
LOC: ANHIMG 09:43
PROVIDERS: PCP Internal Medicine; Visit Provider Obstetrics & Gynecology
DX: Z12.31 Encounter for screening mammogram for malignant neoplasm of breast (principal)
CPT/HCPCS: 77063; 77067

== ENCOUNTER 2024-08-25 12:51 | Emergency (ER) | payer MEDICARE, SELFPAY ==
--- NOTE | ~2024-08-25 | XR_ITS ---
Right elbow Technique: AP, oblique, and lateral views were obtained. Clinical History: Pain Findings: No acute fracture or dislocation is seen. Osseous alignment is anatomic. Joint spaces are p reserved. There is no displacement of the fat pads, and soft tissues are unremarkable. Impression: Unremarkable radiographs. Reviewed, dictated and finalized at location . Impression: Unremarkable radiographs.
--- NOTE | ~2024-08-25 | XR_ITS ---
EXAMINATION: XR knee RT min 4V DATE: 08/25/2024 13:23 INDICATION: Right knee pain. Fall. TECHNIQUE: 4 views of right knee were obtained. COMPARISON: Right knee radiographs 05/29/2024 FINDINGS: Alignment is normal. No fracture. There is moderate osteoarthritis of medial and patellofem oral compartments and mild osteoarthritis of lateral compartment. No knee joint effusion. IMPRESSION: 1. Moderate right knee osteoarthritis. Reviewed, dictated and finalized at location A.
--- NOTE | ~2024-08-25 | XR_ITS ---
EXAMINATION: XR hip RT 2V w AP pelvis DATE: 08/25/2024 13:23 INDICATION: Right hip pain. Fall. TECHNIQUE: An anteroposterior view of the pelvis and 2 views of right hip were obtained. COMPARISON: Right hip radiographs 01/14/2023 FINDINGS: Alignment is normal. No fracture. There is moderate osteoarthritis of the hips. There is se janine lower lumbar spondylosis. IMPRESSION: 1. Moderate osteoarthritis of the hips. Reviewed, dictated and finalized at location A.
--- NOTE | ~2024-08-25 | CT_ITS ---
Non-contrast Head CT History: Status post fall COMPARISON: 12/12/2022 Technique: Axial non-contrast imaging of the brain was performed. Dose reduction technique was used on this scan by utilizing automated exposure control and iterative reconstruction technique. The dose -length product (DLP) was 681.00 mGy-cm. Findings: There is no evidence of intracranial hemorrhage, mass lesion, or acute infarct. Brain par enchyma appears normal. The ventricles and subarachnoid spaces are normal in size. The calvarium ap pears normal. The visualized paranasal sinuses and mastoid air cells are clear. Impression: No significant abnormality seen. Reviewed, dictated and finalized at location . Impression: No significant abnormality seen.
--- NOTE | ~2024-08-25 | CT_ITS ---
EXAMINATION: CT cervical spine wo con DATE: 08/25/2024 13:12 INDICATION: Neck pain. Fall. TECHNIQUE: Computed tomography (CT) of the cervical spine was performed without intravenous contrast. Automated exposure control and iterative reconstruction technique were employed. The dose-length pro duct was 312.53 mGy-cm. COMPARISON: CT cervical spine 12/12/2022 FINDINGS: Alignment is normal. There is mild chronic anterior wedging of C5 vertebral body. There is mildly decreased disc height at C3-C4 and severely decreased disc height at C5-C6 and C6-C7. The foll owing disc levels are specifically discussed: C2-C3: There is mild bilateral uncovertebral joint osteoarthritis. There is mild right and moderate l eft facet joint osteoarthritis. There is no neural foraminal stenosis. There is no central canal sten osis. C3-C4: There is mild right uncovertebral joint osteoarthritis. There is moderate right and severe lef t facet joint osteoarthritis. There is mild left neural foraminal stenosis. There is no central canal stenosis. C4-C5: There is mild left uncovertebral joint osteoarthritis. There is moderate and severe left facet joint osteoarthritis. There is mild left neural foraminal stenosis. There is mild central canal sten osis. C5-C6: There is severe bilateral uncovertebral joint osteoarthritis. There is mild bilateral facet humberto int osteoarthritis. There is moderate right and mild left neural foraminal stenosis. There is mild ce ntral canal stenosis. C6-C7: There is moderate right and severe left uncovertebral joint osteoarthritis. There is severe bi lateral facet joint osteoarthritis. There is mild right and moderate left neural foraminal stenosis. There is mild central canal stenosis. C7-T1: There is no uncovertebral joint osteoarthritis. There is moderate and severe left facet joint osteoarthritis. There is mild left neural foraminal stenosis. There is no central canal stenosis. IMPRESSION: 1. No fracture. 2. Severe cervical spondylosis. Reviewed, dictated and finalized at location A.
--- NOTE | ~2024-08-25 | XR_ITS ---
Right Shoulder Technique: AP and scapular Y views were obtained. Clinical History: Pain Findings: No fracture or dislocation is seen. Osseous alignment is anatomic. The glenohumeral joint i s intact. There is mild AC joint degenerative change. Soft tissues are unremarkable. Impression: Mild AC joint degenerative change. Reviewed, dictated and finalized at [facility]. Impression: Mild AC joint degenerative change.
[2024-08-25 12:57] VITALS: BP 135/67; PULSE 67; RESP 16; TEMP 36.4; O2SAT 99
--- NOTE | 2024-08-25 13:06 | ED.FALL ---
HPI - Fall General Chief Complaint: Fall Stated Complaint: fall Time Seen by Provider: 08/25/24 13:05 Source: patient and family Mode of arrival: ambulatory Limitations: no limitations History of Present Illness HPI Narrative: 83 years old white female tripped on her rug and fell landed on the right side of her body. Patient is telling me that she had right side of the head, right shoulder, right hip. And right knee. She denies any fever, chills, nausea, vomiting, chest pain, shortness of breath, headache, neck pain or back pain. Related Data Home Medications Medication Instructions Recorded Confirmed rivaroxaban 20 mg tablet (Xarelto) 20 mg PO HS 11/02/19 06/26/24 cholecalciferol (vitamin D3) 25 25 mcg PO DAILY 09/10/20 06/26/24 mcg (1,000 unit) capsule zinc 50 mg tablet 50 mg PO DAILY 09/10/20 06/26/24 calcium 600 mg (as 1 tablet PO DAILY 02/20/21 06/26/24 carbonate)-vitamin D3 5 mcg (200 unit) tablet mecobalamin (vitamin B12) 1,000 1,000 mcg PO DAILY 07/31/21 06/26/24 mcg chewable tablet sotalol 80 mg tablet 40 mg PO BID 09/15/21 06/26/24 Allergies Allergy/AdvReac Type Severity Reaction Status Date / Time cortisone Allergy Intermediate Hypertensio Verified 08/25/24 12:54 n amoxicillin Allergy Unknown Chest Verified 08/25/24 12:54 tightness/THROAT TIGHTNESS ampicillin Allergy Unknown CHEST Verified 08/25/24 12:54 TIGHTNESS/THROAT TIGHTNESS ciprofloxacin Allergy Unknown UNSURE Verified 08/25/24 12:54 meperidine AdvReac Unknown N/V, Verified 08/25/24 12:54 DIZZINESS tramadol AdvReac Unknown Nausea Verified 08/25/24 12:54 STEROIDS Allergy Severe SEVERE Uncoded 06/26/24 10:21 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 Review of Systems Review of Systems: 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71 History of migraine headaches HTN (hypertension), benign Hyponatremia Right knee DJD SBO (small bowel obstruction) Screening for breast cancer Unsatisfactory anal cytology smear Weight loss Surgical History Surgical History H/O heart surgery cardioversion for AFIB H/O lumpectomy x 4 History of colposcopy (11/25/16) colpo/ bx - Benign History of left knee replacement (~2011) left knee Hx laparoscopic cholecystectomy Family History Family History Sibling Hypertension Asthma Family history of diabetes mellitus in first degree relative Father Hypertension Malignant neoplasm of prostate Family history of malignant neoplasm of urinary bladder Mother Cerebrovascular accident Uterine cancer Social History Social History Social History: Wishes to be a full code. Does not have a healthcare power of employment attorney. She designates her daughter, Nicolle Suarez, to be her medical decision maker if needed. Smoking packs per day: 0.75 Smoking cigarettes per day: 15.0 Years smoked: 8 Smoking pack-years: 6.00 Smoking status: Former smoker Second hand tobacco smoke exposure: No Smoking end date: 05/15/85 Additional smoking assessment comments: 30 years ago Alcohol intake: never Alcohol use details: VERY RARELY IN PAST Substance use: never Lack of Transportation: No Lack of Food: Never True Current Housing: I Have Housing Concerned About Future Housing: No Difficulty Paying Gas/Joann
== END 2024-08-25 14:03 | disposition home or self-care (01) ==
PROVIDERS: Emergency Provider Emergency Medicine; PCP Internal Medicine
DX: S09.90XA Unspecified injury of head, initial encounter (principal); T14.8XXA Other injury of unspecified body region, initial encounter; W19.XXXA Unspecified fall, initial encounter; Z79.01 Long term (current) use of anticoagulants; I48.91 Unspecified atrial fibrillation; K21.9 Gastro-esophageal reflux disease without esophagitis; I10 Essential (primary) hypertension; Z96.652 Presence of left artificial knee joint; Z87.891 Personal history of nicotine dependence
CPT/HCPCS: 70450; 72125; 73030; 73080; 73502; 73564; 99284

== ENCOUNTER 2024-08-27 10:06 | Emergency (ER) | payer MEDICARE, SELFPAY ==
--- NOTE | 2024-08-27 10:12 | ED.FEMALEGU ---
HPI - Female Genitourinary General Chief complaint: Urogenital-Female Stated complaint: bladder infection Time Seen by Provider: 08/27/24 10:11 Source: patient and family Mode of arrival: ambulatory Limitations: no limitations History of Present Illness HPI Narrative: 83 years old white female drove herself to the emergency room complaining of not feeling good, cloudy urine, urine frequency and urgency for the last 24 hours. She denies any fever, chills, nausea, vomiting, abdominal pain Related Data Home Medications Medication Instructions Recorded Confirmed rivaroxaban 20 mg tablet (Xarelto) 20 mg PO HS 11/02/19 06/26/24 cholecalciferol (vitamin D3) 25 25 mcg PO DAILY 09/10/20 06/26/24 mcg (1,000 unit) capsule zinc 50 mg tablet 50 mg PO DAILY 09/10/20 06/26/24 calcium 600 mg (as 1 tablet PO DAILY 02/20/21 06/26/24 carbonate)-vitamin D3 5 mcg (200 unit) tablet mecobalamin (vitamin B12) 1,000 1,000 mcg PO DAILY 07/31/21 06/26/24 mcg chewable tablet sotalol 80 mg tablet 40 mg PO BID 09/15/21 06/26/24 Allergies Allergy/AdvReac Type Severity Reaction Status Date / Time cortisone Allergy Intermediate Hypertensio Verified 08/25/24 12:54 n amoxicillin Allergy Unknown Chest Verified 08/25/24 12:54 tightness/THROAT TIGHTNESS ampicillin Allergy Unknown CHEST Verified 08/25/24 12:54 TIGHTNESS/THROAT TIGHTNESS ciprofloxacin Allergy Unknown UNSURE Verified 08/25/24 12:54 meperidine AdvReac Unknown N/V, Verified 08/25/24 12:54 DIZZINESS tramadol AdvReac Unknown Nausea Verified 08/25/24 12:54 STEROIDS Allergy Severe SEVERE Uncoded 06/26/24 10:21 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 Review of Systems Review of Systems: 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71 History of migraine headaches HTN (hypertension), benign Hyponatremia Right knee DJD SBO (small bowel obstruction) Screening for breast cancer Unsatisfactory anal cytology smear Weight loss Surgical History Surgical History H/O heart surgery cardioversion for AFIB H/O lumpectomy x 4 History of colposcopy (11/25/16) colpo/ bx - Benign History of left knee replacement (~2011) left knee Hx laparoscopic cholecystectomy Family History Family History Sibling Hypertension Asthma Family history of diabetes mellitus in first degree relative Father Hypertension Malignant neoplasm of prostate Family history of malignant neoplasm of urinary bladder Mother Cerebrovascular accident Uterine cancer Social History Social History Social History: Wishes to be a full code. 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 She designates her daughter, Nicolle Suarez, to be her medical decision maker if needed. Smoking packs per day: 0.75 Smoking cigarettes per day: 15.0 Years smoked: 8 Smoking pack-years: 6.00 Smoking status: Former smoker Second hand tobacco smoke exposure: No Smoking end date: 05/15/85 Additional smoking assessment comments: 30 years ago Alcohol intake: never Alcohol use details: VERY RARELY IN PAST Substance use: never Lack of Transportation: No Lack of Food: Never True Current Housing: I Have Housing Concerned About Future Housing: No Difficulty Paying Gas/Electric Bills: No Difficulty Paying for Meds:
[2024-08-27 10:15] VITALS: O2SAT 100
[2024-08-27 10:16] VITALS: BP 166/66; PULSE 78; RESP 18; TEMP 36.7; O2SAT 99
[2024-08-27 10:46] LABS: Basophils Percent Auto 0.5 % (0.2-1.2); Eosinophils Absolute Auto 0.2 K/mm3 (0-0.3); Eosinophils Percent Auto 2.3 % (0-4.4); Hematocrit 37.5 % (37.0-47.0); Immature Granulocyte Absolute 0.01 K/mm3 (0.00-0.031); Immature Granulocyte Percent A 0.2 % (0-0.5); Lymphocytes Absolute Auto 2.01 K/mm3 (0.9-3.2); Lymphocytes Percent Auto 31.1 % (18.3-44.2); Mean Corpuscular HGB Conc 34.7 g/dl (32-36); Mean Corpuscular Hemoglobin 32.9 pg (26-34); Mean Corpuscular Volume 94.9 fl (80-100); Mean Platelet Volume 8.8 fl (7.4-10.4); Monocytes Absolute Auto 0.6 K/mm3 (0.1-0.6); Monocytes Percent Auto 8.7 % (2.6-8.5); Neutrophils Absolute Auto 3.7 K/mm3 (1.3-6.7); Neutrophils Percent Auto 57.2 % (45.5-73.1); Platelet Count Result 226 k/mm3 (150-375); Red Blood Count 3.95 M/mm3 (4.2-5.4); Red Cell Distribution Width 12.7 % (11.5-14.5); White Blood Count 6.5 K/mm3 (4.5-10.0)
[2024-08-27 10:50] LABS: Add Urine Microscopic? YES; Appearance Urine Clear (Clear); Bacteria Urine 4+ /hpf; Bilirubin Urine Negative (Negative); Blood Urine Trace (Negative); Color Urine Yellow (Yellow); Glucose Urine UA Negative (Negative); Ketones Urine Negative (Negative); Leukocyte Esterase Ur 3+ LEU/UL (Negative); Nitrate Urine Negative (Negative); Non Pathogenic Casts 0-2; Protein Urine Negative (Negative); RBC Urine 0-2 /hpf (0-2); Specific Grav Ur 1.004 (1.001-1.035); Squamous Epithelial Cell Urine None Seen /hpf (Few); Urobilinogen Urine 0.2 mg/dL (<2.0); WBC Urine 51-100 /hpf (0-3)
[2024-08-27 10:57] LABS: Alanine Aminotransferase 15 U/L (6-35); Albumin Level 3.8 g/dL (3.5-5.1); Alkaline Phosphatase 59 U/L (38-126); Anion Gap 6 mmol/L (4-12); Aspartate Amino Transferase 22 U/L (14-36); Bilirubin,Total 0.5 mg/dL (0.2-1.3); Blood Urea Nitrogen 9 mg/dL (7-17); Calcium 8.9 mg/dL (8.4-10.2); Carbon Dioxide 27 mmol/L (22-30); Chloride 95 mmol/L (98-107); Estimated CRCL calculation 60 ml/min; Estimated Glomerular Filt Rate > 60; Glucose 96 mg/dL (65-110); Potassium 4.5 mmol/L (3.4-5.0); Sodium 128 mmol/L (137-145)
[2024-08-27 12:13] VITALS: BP 158/66; PULSE 68; RESP 18; TEMP 36.7; O2SAT 97
== END 2024-08-27 12:15 | disposition home or self-care (01) ==
PROVIDERS: Emergency Provider Emergency Medicine; PCP Internal Medicine
DX: N39.0 Urinary tract infection, site not specified (principal); E87.1 Hypo-osmolality and hyponatremia; I48.91 Unspecified atrial fibrillation; I10 Essential (primary) hypertension; K21.9 Gastro-esophageal reflux disease without esophagitis; M17.11 Unilateral primary osteoarthritis, right knee; Z96.652 Presence of left artificial knee joint; Z86.0100 Personal history of colon polyps, unspecified; Z87.891 Personal history of nicotine dependence; Z90.49 Acquired absence of other specified parts of digestive tract; Z79.01 Long term (current) use of anticoagulants; Z79.899 Other long term (current) drug therapy
CPT/HCPCS: 36415; 80053; 81001; 85025; 87077; 87086; 87186; 96365; 99284; J0696

== ENCOUNTER 2024-10-02 12:30 | Outpatient (CLI) | payer MEDICARE, SELFPAY ==
[2024-10-02 20:31] LABS: Anion Gap 2 mmol/L (4-12); Blood Urea Nitrogen 11 mg/dL (7-17); Calcium 8.9 mg/dL (8.4-10.2); Carbon Dioxide 31 mmol/L (22-30); Chloride 98 mmol/L (98-107); Estimated Glomerular Filt Rate > 60; Glucose 95 mg/dL (65-110); Potassium 4.5 mmol/L (3.4-5.0); Sodium 131 mmol/L (137-145)
== END 2024-10-02 12:31 | disposition home or self-care (01) ==
PROVIDERS: PCP Internal Medicine; Visit Provider Nurse Practitioner
DX: E87.1 Hypo-osmolality and hyponatremia (principal)
CPT/HCPCS: 36415; 80048

== ENCOUNTER 2024-11-09 17:28 | Emergency (ER) | payer MEDICARE, SELFPAY ==
[2024-11-09 17:40] VITALS: BP 180/65; PULSE 74; RESP 18; TEMP 36.1; O2SAT 97
--- NOTE | 2024-11-09 17:53 | ED.FEMALEGU ---
HPI - Female Genitourinary General Chief complaint: Urogenital-Female Stated complaint: bladder infection Time Seen by Provider: 11/09/24 17:53 Focused HPI: This is a 84 year old female that presents to the ER for bladder infection. Reports she went to the urologist and they sent in an antibiotic. The pharmacy did not have the medication they called in. She has had cloudy urine, burning with urination. Denies fevers. GENERAL: Well-appearing, well-nourished, and in no acute distress. HEAD: Normocephalic, atraumatic. CHEST: Clear to auscultation. ?No respiratory distress. HEART: Regular rate and rhythm.? NEURO: ?Alert and oriented x3. Patient screened in triage and initial orders placed.? ?Additional care and disposition to be based upon?diagnostic testing and treatment. Related Data Home Medications ?Medication ?Instructions ?Recorded ?Confirmed ?Last Taken ?Type rivaroxaban 20 mg tablet (Xarelto) 20 mg PO HS 11/02/19 10/02/24 02/23/21 21:00 History cholecalciferol (vitamin D3) 25 25 mcg PO DAILY 09/10/20 10/02/24 02/23/21 07:00 History mcg (1,000 unit) capsule calcium 600 mg (as 1 tablet PO DAILY 02/20/21 10/02/24 02/23/21 07:00 History carbonate)-vitamin D3 5 mcg (200 unit) tablet mecobalamin (vitamin B12) 1,000 1,000 mcg PO DAILY 07/31/21 10/02/24 Unknown History mcg chewable tablet sotalol 80 mg tablet 40 mg PO BID 09/15/21 10/02/24 Unknown History cranberry extract 1 tablet PO DAILY 10/02/24 10/02/24 Unknown History Allergies Allergy/AdvReac Type Severity Reaction Status Date / Time cortisone Allergy Intermediate Hypertensio Verified 08/25/24 12:54 n amoxicillin Allergy Unknown Chest Verified 08/25/24 12:54 tightness/THROAT TIGHTNESS ampicillin Allergy Unknown CHEST Verified 08/25/24 12:54 TIGHTNESS/THROAT TIGHTNESS ciprofloxacin Allergy Unknown UNSURE Verified 08/25/24 12:54 meperidine AdvReac Unknown N/V, Verified 08/25/24 12:54 DIZZINESS tramadol AdvReac Unknown Nausea Verified 08/25/24 12:54 STEROIDS Allergy Severe SEVERE Uncoded 06/26/24 10:21 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 Review of Systems Review of Systems: CONSTITUTIONAL: Denies fever GENITOURINARY: Reports dysuria. Denies hematuria. 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71 History of migraine headaches HTN (hypertension), benign Hyponatremia Right knee DJD SBO (small bowel obstruction) Screening for breast cancer Unsatisfactory anal cytology smear Weight loss Surgical History Surgical History H/O heart surgery cardioversion for AFIB H/O lumpectomy x 4 History of colposcopy (11/25/16) colpo/ bx - Benign History of left knee replacement (~2011) left knee Hx laparoscopic cholecystectomy Family History Family History Sibling Hypertension Asthma Family history of diabetes mellitus in first degree relative Father Hypertension Malignant neoplasm of prostate Family history of malignant neoplasm of urinary bladder Mother Cerebrovascular accident Uterine cancer Social History Social History Social History: Wishes to be a full code. Does not have a healthcare power of regulatory attorney. She designates her daughter, Nicolle Suarez, to be her medical decision maker if needed. Smoking packs per day: 0.75 Smoking cigarettes per day: 15.0 Years smoked: 8 Smoking pack-years: 6.00 Smoking status: Former smoker Second hand tobacco smoke exposure: No Smoking end date: 05/15/85 Additional smoking assessment comments: 30 years ago Alcohol intake: never Alcohol use details: VERY RARELY IN PAST Substance use: never Lack of Transportation: No Lack of Food: Never True Current Housing: I Have Housing Concerned About Future Housing: No Difficulty Paying Gas/Electric Bills: No Difficulty Paying for Meds: No Currently Unemployed: No Education: Master's Degree or Higher Difficulty w/ Childcare or Family Care: No Living arrangements: with family Additional living arrangements comments: - MAXIM who is 90 years old 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 HEAD: Normocephalic, atraumatic. EYES: EOMI. CHEST: Clear to auscultation. No respiratory distress. No wheezes rales or rhonchi HEART: Regular rate and rhythm. No murmur heard. Normal peripheral pulses. EXTREMITIES: Normal range of motion. No edema. SKIN: Warm, dry, no rash. NEURO: No focal deficits. Alert and oriented x3. PSYCH: Normal mood and affect Course Course Emergency Course: Patient agrees with plan of care Vital Signs Vital signs: Vital Signs Temperature 97.0 F L 11/09/24 17:40 Pulse Rate 74 11/09/24 17:40 Respiratory Rate 18 11/09/24 17:40 Blood Pressure 180/65 H 11/09/24 17:40 Pulse Oximetry 97 11/09/24 17:40 Temperature 97.0 F L 11/09/24 17:40 Pulse Rate 74 11/09/24 17:40 Respiratory Rate 18 11/09/24 17:40 Blood Pressure 180/65 H 11/09/24 17:40 Pulse Oximetry 97 11/09/24 17:40 MDM - Female Genitourinary MDM Narrative Medical decision making narrative: Patient presents to the emergency department for urinary symptoms ongoing since this morning. She is afebrile and nontoxic appearing. Denies fevers, flank pain or vomiting. Urine is consistent with infection. This was sent for culture. Patient will be started on oral antibiotics. She was given warnings to return to the ER Differential Diagnosis Differential diagnosis: Likely urinary tract infection Lab Data Labs: Lab Results 11/09/24 Range/Units 17:49 Urine Color Yellow (Yellow) Urine Appearance Clear (Clear) Urine pH 7.0 (5.0-9.0) Ur Specific [place] 1.008 (1.001-1.035) Urine Protein Negative (Negative) mg/dL Urine Glucose (UA) Negative (Negative) mg/dL Urine Ketones Negative (Negative) mg/dL Ur Blood (Man) Non-hemolyzed trace H (Negative) Urine Nitrate Negative (Negative) Urine Bilirubin Negative (Negative) Urine Urobilinogen 0.2 (<2.0) mg/dL Leukocyte Esterase Rfl 3+ H (Negative) SUNIL/UL Urine RBC 0-2 (0-2) /hpf Urine WBC >100 H (0-3) /hpf Ur Squamous Epith Cells None seen (Few) /hpf Urine Bacteria 3+ H /hpf Urine Casts 0-2 Critical Care Time Critical Care Time Critical Care Time: No Discharge Plan Discharge Clinical Impression: Acute UTI Patient Disposition: Home, Self-Care Condition: Stable Instructions: Antibiotic Form, Urinary Tract Infection in Older Adults (ED) Additional Instructions: Return to the ER if you experience fever, abdominal pain with nausea and vomiting, you are unable to keep down liquids or solids, blood in the urine or any other symptoms that are concerning to you Remain well hydrated. Take oral antibiotics as prescribed Follow up with primary care doctor Patient Language: Kinyarwanda Prescriptions: New cephalexin 500 mg capsule 500 mg PO Q12H 5 Days Qty: 10 0RF No Action cholecalciferol (vitamin D3) 25 mcg (1,000 unit) capsule 25 mcg PO DAILY sotalol 80 mg tablet 40 mg PO BID Xarelto 20 mg tablet 20 mg PO HS Rx Instructions: patient takes at dinner time mecobalamin (vitamin B12) 1,000 mcg tablet,chewable 1,000 mcg PO DAILY triamcinolone acetonide 0.1 % ointment 1 applic topical BID Qty: 80 1RF estradiol 0.01 % (0.1 mg/gram) cream 1 g vaginal DAILY Qty: 42.5 1RF Rx Instructions: for 14 days cranberry extract 1 tablet PO DAILY amlodipine 5 mg tablet 5 mg PO DAILY Qty: 90 1RF omeprazole 20 mg capsule,delayed release(DR/EC) See Rx Instructions .ROUTE .COMPLEX Qty: 90 1RF Dose Instruction: TAKE 1 CAPSULE DAILY Rx Instructions: TAKE 1 CAPSULE DAILY calcium carbonate-vitamin D3 600 mg(1,500mg) -200 unit Tablet 1 tablet PO DAILY sumatriptan succinate 50 mg tablet See Rx Instructions PO .COMPLEX Qty: 10 1RF Rx Instructions: take 1 tab at onset of migraine; if no relief may repeat 1 tab after at least 2 hrs; max = 4 tabs/24 hr PO Follow-up/Referrals: Benjamin Rees, DO [Primary Care Provider] -
[2024-11-09 17:59] LABS: Add Urine Microscopic? YES; Appearance Urine Clear (Clear); Bacteria Urine 3+ /hpf; Bilirubin Urine Negative (Negative); Blood Urine Non-Hemolyzed Trace (Negative); Color Urine Yellow (Yellow); Glucose Urine UA Negative (Negative); Ketones Urine Negative (Negative); Leukocyte Esterase Ur 3+ LEU/UL (Negative); Nitrate Urine Negative (Negative); Non Pathogenic Casts 0-2; Protein Urine Negative (Negative); RBC Urine 0-2 /hpf (0-2); Specific Grav Ur 1.008 (1.001-1.035); Squamous Epithelial Cell Urine None Seen /hpf (Few); Urobilinogen Urine 0.2 mg/dL (<2.0); WBC Urine >100 /hpf (0-3)
== END 2024-11-10 08:07 | disposition home or self-care (01) ==
LOC: ANHED 18:06
PROVIDERS: Emergency Provider Physician Assistant; PCP Internal Medicine
DX: N39.0 Urinary tract infection, site not specified (principal); I48.91 Unspecified atrial fibrillation; Z87.440 Personal history of urinary (tract) infections; K21.9 Gastro-esophageal reflux disease without esophagitis; Z86.718 Personal history of other venous thrombosis and embolism; I10 Essential (primary) hypertension
CPT/HCPCS: 81001; 87077; 87086; 87186; 99283

== ENCOUNTER 2024-12-23 14:36 | Emergency (ER) | payer MEDICARE, SELFPAY ==
--- NOTE | ~2024-12-23 | CT_ITS ---
EXAMINATION: CT abdomen pelvis wo con DATE: 12/23/2024 16:47 INDICATION: lower abd pain, uti, r/o obstruction TECHNIQUE: Computed tomography (CT) of the abdomen and pelvis was performed without intravenous contr ast. Automated exposure control and iterative reconstruction technique were employed. The dose-length product was 213.45 mGy-cm. COMPARISON: 11/25/2021. FINDINGS: Lower thorax: Bibasilar scar/atelectasis. Liver: Normal. Biliary/Gallbladder: Gallbladder is absent. No bile duct dilation. Pancreas: No mass or duct dilation. Spleen: Normal. Adrenals:No mass. Kidneys: No suspicious mass, obstructing stone, or hydronephrosis. GI tract: No small or large bowel dilation. Normal appendix. Mesentery/Peritoneum: No ascites, mass, or free air. Retroperitoneum: No mass. Pelvis: Mild urinary bladder wall inflammatory change. Normal uterus and bilateral ovaries. Soft Tissues: Soft tissues and body wall unremarkable. Bones: No acute osseous finding. IMPRESSION: Possible cystitis, correlate with urinalysis. Otherwise, no acute abdominopelvic process detected. Reviewed, dictated and finalized at location K. ETUAL INVENTORY CLERK
--- OUTSIDE RECORDS SUMMARY | 2024-12-23 14:38 | XMS_ITS | Clinical Summary ---
Author Organization [facility] [address] Address [address] [place] [address] Care Team Providers Care Starchmaker Name Role Phone Benjamin Rees DO Primary Care Provider [phone] Allergies Active Allergy Reactions Criticality Noted Date Comments Ampicillin Shortness of breath High 02/24/2021 Codeine Dizziness,Nausea And Vomiting Low 2014 Hydrocodone Nausea & Vomiting Low Levofloxacin Shortness of breath,Palpitations High 0 03/19/2020 Meperidine Nausea & Vomiting Low Tramadol Nausea And Vomiting Low 05/20/2015 Medications calcium carbonate (CALCIUM 600 ORAL) Take by mouth daily Active omeprazole (PriLOSEC) 20 mg capsule Take 1 capsule (20 mg total) by mouth daily Active zinc 50 mg tablet Take 50 mg by mouth daily Active Bifidobacterium infantis (ALIGN) 4 mg capsule 1 capsule (4 mg total) Active cyanocobalamin (Vitamin B-12) 1,000 mcg tabletIndications :Prevention of Vitamin B12 Deficiency Take 1 tablet (1,000 mcg total) by mouth daily Active cholecalciferol (VITAMIN D-3) 400 unit capsule Active ascorbic acid (ascorbic acid with shakira hips) 500 mg tablet,chewable Acti ve rivaroxaban (Xarelto) 20 mg tablet Take 1 tablet (20 mg total) by mouth daily 90 tablet 3 4 Active losartan (COZAAR) 25 mg tabletIndications :Labile hypertension Take 2 tablets (50 mg total) by mouth daily 4 10/02/20 25 Active sotaloL (BETAPACE) 80 mg tablet Take 1 tablet (80 mg total) by mouth 2 (two) times a day 180 tablet 2 5 Active sotaloL (BETAPACE) 80 mg tablet Take 1 tablet (80 mg total) by mouth 2 (two) times a day 180 tablet 4 12/20/19 25 Discontinu ed(Reorder ) Active Problems Problem Noted Date Diagnosed Date Localized edema 02/08/2024 Dizziness 12/24/2021 Medication side effects 12/24/2021 Encounter for monitoring sotalol therapy 019 QT prolongation 12/08/2018 Labile hypertension 09/12/2018 History of cardioversion 08/04/2018 Atrial fibrillation (CMS/HCC) 07/11/2018 SOB (shortness of breath) on exertion 07/11/2018 Chronic anticoagulation 07/11/2018 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 First degree AV block 09/24/2017 Palpitations 07/02/2017 HTN (hypertension), benign 07/02/2017 Chronic fatigue 07/02/2017 Mixed hyperlipidemia 10/16/2015 Overview (02/19/2017): Hyperlipidemia, unspecified hyperlipidemia Resolved Problems Problem Noted Date Diagnosed Date Resolved Date Dyslipidemia 07/02/2017 12/24/2021 Encounters Date Type Department Care Team Description 12/20/2024 Telephone [facility] [address] [place] [address] [place] [phone] Anu Lazo MD Med Refill 12/08/2024 Telephone [facility] [address] [place] [address] [place] [phone] Anu Lazo MD Med Refill 11/02/2024 Telephone [facility] [address] [place] [address] [place] [phone] Anu Lazo MD monitor results 10/23/2024 Telephone [facility] [address] [place] [address] [place] [phone] Anu Lazo MD 09/29/2024 Telephone [facility] [address] [place] [address] [place] [phone] Anu Lazo MD Hypertension 09/28/2024 1:45 PM PLOW HOLDER Ancillary Procedure [facility] Medical [facility] Card[facility] [address] [place] [phone] Paroxysmal atrial fibrillation (CMS/HCC) (HCC); Encounter for monitoring sotalol therapy 09/28/2024 11:15 AM PLOW HOLDER Office Visit [facility] Medical [facility] Card[facility] [address] [place] [phone] Anu Lazo MD Paroxysmal atrial fibrillation (CMS/HCC) (HCC) (Primary Dx); Mixed hyperlipidemia; Chronic anticoagulation; HTN (hypertension), benign; Encounter for monitoring sotalol therapy 09/28/2024 Telephone [facility] Medical [facility] Card[facility] [address] [place] [phone] Anu Lazo MD holter patch from Last 3 Months Medical History Medical History Date Comments Hyperlipidemia Atrial fibrillation (CMS/HCC) (HCC) Family History Medical History Relation Name Comments Prostate cancer Father Cancer, pros jaime; Stroke Mother Stroke; Diabetes Sister Diabetes mellit us; Heart disease Son Cardiovascular disease; Relation Name Status Comments Father Mother Sister Son Social History Tobacco Use Types Packs/Day Years Used Date Smoking Tobacco: Former Smokeless Tobacco: Never Tobacco Cessation:Counseling Given: Not Answered Alcohol Use Standard Drinks/Week Comments No 0 (1 standard drink = 0.6 oz pur e alcohol) Comments Unknown Sex and Gender Information Value Date Recorded Sex Assigned at Not on file Legal Sex Female 7:54 PM PLOW HOLDER Gender Identity Not on file Sexual Orientation Not on file Obstetrics History Last Filed Vital Signs Vital Sign Reading Time Taken Comments Blood Pressure 120/64 09/28/2024 11:29 AM PLOW HOLDER Pulse 57 09/28/2024 11:29 AM PLOW HOLDER Temperature - - Respiratory Rate 16 07/02/2017 10:24 AM CDT Oxygen Saturation 96% 09/28/2024 11:29 AM PLOW HOLDER Inhaled Oxygen Concentration - - Weight 75.8 kg (167 lb) 09/28/2024 11:29 AM PLOW HOLDER Height 172.7 cm (5' 8 ) 09/28/2024 11:29 AM PLOW HOLDER Body Mass Index 25.39 09/28/2024 11:29 AM PLOW HOLDER Plan of Treatment Health Maintenance Due Date Last Done Comments Depression Screening 1940 Fall Risk Assessment 1940 Osteoporosis Screening-Bone Density Scan 1940 DTaP/Tdap/Td Vaccine (1 - Tdap) 1952 Hepatitis B Screening 1959 Well Visit 65+ 2006 Zoster Vaccine (2 of 3) 10/19/2012 08/24/2012 Pneumococcal vaccine 65+ (2 of 2 - PPSV23 or PCV20) 10/17/2019 10/17/2018 Influenza Vaccine (#1) 2024 9, 08/03/2018, 08/15/2017, Additional history exists Procedures Procedure Name Priority Date/Time Associated Diagnosis Comments MCT - MOBILE CARDIAC TELEMETRY EVENT MONITOR Routine 10/26/2024 11:19 AM PLOW HOLDER Paroxysmal atrial fibrillation (CMS/HCC) (HCC) Encounter for monitoring sotalol therapy ECG 12-LEAD Routine 09/28/2024 12:33 PM PLOW HOLDER Paroxysmal atrial fibrillation (CMS/HCC) (HCC) Encounter for monitoring sotalol therapy from Last 3 Months Results * MCT Mobile Cardiac Telemetry Event Monitor (10/26/2024 11:19 AM PLOW HOLDER) Anatomical Region Laterality Modality Electrocardiogra phy Narrative 10/26/2024 11:19 AM PLOW HOLDER Images from the original result were not included. AMBULATORY PRINCIPAL PLANNER REPORT Patient Name: Roxana Barragan Date of : 1940 Requesting Physician: Anu Lazo M.D. Date of Interpretation: 10/26/24 Type of Monitor: 30 Day Mobile Cardiac Outpatient Fourth Hand Date of the Study / Enrollment Period: 09/28/2024 to 10/23/2024 Indication: Paroxysmal atrial fibrillation Quality of the Study: Average. Total analysis time of 16 days, 22 hours, and 34 minutes. Interpretation: Predominant rhythm is sinus rhythm. The average heart rate was 66 beats per minute. The minimum heart rate was 48 beats per minute. The maximum heart rate was 172 beats per minute. No evidence of atrial fibrillation, pauses. There was 1 episode of SVT at a rate of 113 beats per minute. Intermittent first degree AV block, with the minimum heart rate of 52 beats per minute, which occurred during sleeping hours. There was 1 episode of NSVT, which consisted of 5 beats. No symptoms were reported with this. The PAC burden is 1%. The PVC burden is 2%. Patient reported 4 events during the monitoring period. Patient reported skipped beat which correlated to the episode of SVT. Patient reported skipped beat which correlated to sinus rhythm, first degree AV block, atrial tachycardia Patient reported skipped beat which correlated to sinus rhythm, first degree AV block, PVCs Patient reported symptom other than listed which correlated to sinus rhythm with atrial couplet. Conclusions: Sinus rhythm with an average heart rate of 66 beats per minute. 1 episode of SVT at a rate of 113 beats per minute. Patient reported symptoms of skipped beats with this episode. Intermittent first degree AV block. There was 1 episode of NSVT, which consisted of 5 beats. No symptoms were reported with this. The PAC burden is 1%. The PVC burden is 2%. Patient's symptoms correlated to the SVT episode, sinus rhythm with atrial tachycardia / atrial couplet, PVCs. Anu Lazo M.D., [facility] 10/26/24 Procedure Note Anu Lazo MD - 10/26/2024 Images from the original note were not included. AMBULATORY PRINCIPAL PLANNER REPORT Patient Name: Roxana Barragan Date of : 1940 Requesting Physician: Anu Lazo M.D. Date of Interpretation: 10/26/24 Type of Monitor: 30 Day Mobile Cardiac Outpatient Fourth Hand Date of the Study / Enrollment Period: 09/28/2024 to 10/23/2024 Indication: Paroxysmal atrial fibrillation Quality of the Study: Average. Total analysis time of 16 days, 22 hours,and 34 minutes. Interpretation: Predominant rhythm is sinus rhythm. The average heart rate was 66 beatsper minute. The minimum heart rate was 48 beats per minute. The maximumheart rate was 172 beats per minute. No evidence of atrial fibrillation, pauses. There was 1 episode of SVT at a rate of 113 beats per minute. Intermittent first degree AV block, with the minimum heart rate of 52beats per minute, which occurred during sleeping hours. There was 1 episode of NSVT, which consisted of 5 beats. No symptoms werereported with this. The PAC burden is 1%. The PVC burden is 2%. Patient reported 4 events during the monitoring period. Patient reported skipped beat which correlated to the episode of SVT. Patient reported skipped beat which correlated to sinus rhythm, firstdegree AV block, atrial tachycardia Patient reported skipped beat which correlated to sinus rhythm, firstdegree AV block, PVCs Patient reported symptom other than listed which correlated to sinusrhythm with atrial couplet. Conclusions: Sinus rhythm with an average heart rate of 66 beats per minute. 1 episode of SVT at a rate of 113 beats per minute. Patient reportedsymptoms of skipped beats with this episode. Intermittent first degree AV block. There was 1 episode of NSVT, which consisted of 5 beats. No symptoms werereported with this. The PAC burden is 1%. The PVC burden is 2%. Patient's symptoms correlated to the SVT episode, sinus rhythm with atrialtachycardia / atrial couplet, PVCs. Aun Lazo M.D., [facility] 10/26/24 Anu Lazo MD CV CARDIAC SERVICES PRO CEDURES Final Result * ECG 12 lead (09/28/2024 12:33 PM PLOW HOLDER) Anu Lazo MD ECG ORDERABLES Final R esult from Last 3 Months Insurance MEDICARE [facility] Address: [address] [address] MEDICARE [facility] MEDICARE SUPPLEMENT Care Teams Starchmaker Relationship Specialty Start Date End Date Benjamin Rees DO PCP - General Internal Medicine 02/26/20
[2024-12-23 14:39] VITALS: BP 108/75; PULSE 62; RESP 20; TEMP 36.3; O2SAT 99
--- OUTSIDE RECORDS SUMMARY | 2024-12-23 14:39 | XMS_ITS | Referral Summary ---
Author Organization [place] [address] Address [address] [place] [address] Care Team Providers Care Wood Router Name Role Phone Benjamin Rees DO Primary Care Provider [phone] Encounters Date Type Department Care Team Description 12/20/2024 Telephone [facility] Cardiology [address] [place] [address] [address] [place] [address] Anu Laoz MD Med Refill 12/08/2024 Telephone [facility] Cardiology [address] [place] [address] [address] [place] [address] Anu Lazo MD Med Refill 11/02/2024 Telephone [facility] Cardiology [address] [place] [address] [address] [place] [address] Anu Lazo MD monitor results 10/23/2024 Telephone [facility] Cardiology [address] [place] [address] [address] [place] [address] Anu Lazo MD 09/29/2024 Telephone [facility] Cardiology [address] [place] [address] [address] [place] [address] Anu Lazo MD Hypertension 09/28/2024 1:45 PM TUFTER OPERATOR Ancillary Procedure [facility] Cardiology [address] [place] [address] [address] [place] [address] Paroxysmal atrial fibrillation (CMS/HCC) (HCC); Encounter for monitoring sotalol therapy 09/28/2024 Telephone [facility] Cardiology [address] [place] [id number] Anu Lazo MD holter patch 09/28/2024 11:15 AM TUFTER OPERATOR Office Visit [facility] Cardiology [address] [place] [address] Anu Lazo MD Paroxysmal atrial fibrillation (CMS/HCC) (HCC) (Primary Dx); Mixed hyperlipidemia; Chronic anticoagulation; HTN (hypertension), benign; Encounter for monitoring sotalol therapy from Last 3 Months Allergies Active Allergy Reactions Criticality Noted Date [...] Diagnosed Date Resolved Date Dyslipidemia 07/02/2017 12/24/2021 Social History Tobacco Use Types Packs/Day Years Used Date Smoking Tobacco: Former Smokeless Tobacco: Never Tobacco Cessation:Counseling Given: Not Answered Alcohol Use Standard Drinks/Week Comments No 0 (1 standard drink = 0.6 oz pur e alcohol) Comments Unknown Sex and Gender Information Value Date Recorded Sex Assigned at Not on file Legal Sex Female 7:54 PM TUFTER OPERATOR Gender Identity Not on file Sexual Orientation Not on file Last Filed Vital Signs Vital Sign Reading Time Taken Comments Blood Pressure 120/64 09/28/2024 11:29 AM TUFTER OPERATOR Pulse 57 09/28/2024 11:29 AM TUFTER OPERATOR Temperature - - Respiratory Rate 16 07/02/2017 10:24 AM CDT Oxygen Saturation 96% 09/28/2024 11:29 AM TUFTER OPERATOR Inhaled Oxygen Concentration - - Weight 75.8 kg (167 lb) 09/28/2024 11:29 AM TUFTER OPERATOR Height 172.7 cm (5' 8 ) 09/28/2024 11:29 AM TUFTER OPERATOR Body Mass Index 25.39 09/28/2024 11:29 AM TUFTER OPERATOR Plan of Treatment Not on file Procedures Procedure Name Priority Date/Time Associated Diagnosis Comments MCT - MOBILE CARDIAC TELEMETRY EVENT MONITOR Routine 10/26/2024 11:19 AM TUFTER OPERATOR Paroxysmal atrial fibrillation (CMS/HCC) ([facility]) Encounter for monitoring sotalol therapy ECG 12-LEAD Routine 09/28/2024 12:33 PM TUFTER OPERATOR Paroxysmal atrial fibrillation (CMS/HCC) (HCC) Encounter for monitoring sotalol therapy from Last 3 Months Results * MCT Mobile Cardiac Telemetry Event Monitor (10/26/2024 11:19 AM TUFTER OPERATOR) Anatomical Region Laterality Modality Electrocardiogra phy Narrative 10/26/2024 11:19 AM TUFTER OPERATOR Images from the original result were not included. AMBULATORY GUN FITTER REPORT Patient Name: Roxana Barragan Date of : 1940 Requesting Physician: Anu Lazo M.D. Date of Interpretation: 10/26/24 Type of Monitor: 30 Day Mobile Cardiac Outpatient Die Repairer Stamping Date of the Study / Enrollment Period: [...] / atrial couplet, PVCs. Anu Lazo M.D., [facility] 10/26/24 Procedure Note Anu Lazo MD - 10/26/2024 Images from the original note were not included. AMBULATORY GUN FITTER REPORT Patient Name: Roxana Barragan Date of : 1940 Requesting Physician: Anu Lazo M.D. Date of Interpretation: 10/26/24 Type of Monitor: 30 Day Mobile Cardiac Outpatient Die Repairer Stamping Date of the Study / Enrollment Period: [...] rhythm with atrialtachycardia / atrial couplet, PVCs. Anu Lazo M.D., [facility] 10/26/24 Anu Lazo MD CV CARDIAC SERVICES PRO CEDURES Final Result * ECG 12 lead (09/28/2024 12:33 PM TUFTER OPERATOR) us Anu Lazo MD ECG ORDERABLES Final R esult from Last 3 Months Insurance MEDICARE MEDICARE [facility] MEDICARE SUPPLEMENT Care Teams Wood Router Relationship Specialty Start Date End Date Benjamin Rees DO PCP - General Internal Medicine 02/26/20
--- OUTSIDE RECORDS SUMMARY | 2024-12-23 14:39 | XMS_ITS | Encounter Summary ---
Author Organization [facility] Address [address] [place]: [place] [address] Care Team Providers Care Kitchen Hand Name Role Phone Zain Gaytan MD Primary Care Provider + Encounter Details Date Type Department Care Team (Late st Contact Info) Description 05/04/1991 Outpatient Historical Paul Urbina MD NO ADDRESS ON FILE Social History Tobacco Use Types Packs/Day Years Used Date Smoking Tobacco: Never Assessed Comments Unknown Sex and Gender Information Value Date Recorded Sex Assigned at Not on file Legal Sex Female 3:48 AM KING MAKER Gender Identity Not on file Sexual Orientation Not on file documented as of this encounter Plan of Treatment Not on file documented as of this encounter Visit Diagnoses Not on filedocumented in this encounter Care Teams Kitchen Hand Relationship Specialty Start Date End Date Zain Gaytan MD PCP - General Internal Medicine 05/15/15 documented as of this encounter
--- OUTSIDE RECORDS SUMMARY | 2024-12-23 14:39 | XMS_ITS | Clinical Summary ---
Author Organization [facility] Address [address] [place] [address] Phone Care Team Providers Care Radiology Transcriptionist Name Role Phone Zain Gaytan MD Primary Care Provider + Allergies Active Allergy Reactions Criticality Noted Date Comments Codeine Nausea and Vomiting,Dizziness Low 2014 Tramadol Nausea and Vomiting Low 05/20/2015 Medications estradiol (VAGIFEM) 10 mcg tablet Insert 10 mcg vaginally. Active ATENOLOL ORAL Take by mouth. Active aspirin (ECOTRIN EC) 81 mg Tablet, Delayed Release (E.C.) Take 81 mg by mouth daily. Active Active Problems Patient Care Coordination No te Formatting of this note migh t be different from the original. Primary Care: Zain Gaytan MD Referring Provider: Zain Gaytan MD [address] [place] [address] Other: Dr Renita Nelson Problem Noted Date Diagnosed Date Lump of breast, left 04/24/2015 Family History Medical History Relation Name Comments Breast Cancer Maternal Aunt Cancer Mother Diabetes Sister Relation Name Status Comments Maternal Aunt Mother Sister Social History Tobacco Use Types Packs/Day Years Used Date Smoking Tobacco: Former Cigarettes Q uit: 11/15/1989 Smokeless Tobacco: Never Tobacco Cessation:Counseling Given: No Alcohol Use Standard Drinks/Week Comments Yes 0 (1 standard drink = 0.6 oz pur e alcohol) rare Comments No Sex and Gender Information Value Date Recorded Sex Assigned at Not on file 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 Gender Identity Not on file Sexual Orientation Not on file Last Filed Vital Signs Vital Sign Reading Time Taken Comments Blood Pressure 131/73 05/20/2015 10:00 AM CDT Pulse 54 05/20/2015 10:00 AM CDT Temperature - - Respiratory Rate - - Oxygen Saturation - - Inhaled Oxygen Concentration - - Weight 84.8 kg (187 lb) 05/20/2015 10:00 AM CDT Height 172.7 cm (5' 8 ) 05/20/2015 10:00 AM CDT Body Mass Index 28.43 05/20/2015 10:00 AM CDT Plan of Treatment Health Maintenance Due Date Last Done Comments DTAP/TDAP/TD VACCINES (1 - Tdap) 1960 PNEUMOCOCCAL VACCINE 65+ YEARS (1 of 1 - PCV) 10/07/19 91 ZOSTER VACCINE (1 of 2) 1991 OSTEOPOROSIS SCREENING 2006 RSV VACCINE (60+ or ) (1 - 1-dose 75+ series) 2016 INFLUENZA VACCINE (#1) 2024 Insurance MEDICARE PART A AND B [facility] Care Teams Radiology Transcriptionist Relationship Specialty Start Date End Date Zain Gaytan MD PCP - General Internal Medicine 05/15/15
--- OUTSIDE RECORDS SUMMARY | 2024-12-23 14:39 | XMS_ITS | Continuity of Care Document ---
Author Organization [facility] Address [address] [place] [address] [place] [address] Phone Care Team Providers Care Paper Cup Handle Machine Operator Name Role Phone Madi Jay Unavailable Unavailable Advance Directives Directive Yes / No Effective Date File Name No Information Encounters Encounter Description Practice Location Reason(s) For Visit Diagnoses Date Provider Providers Copied on Encounter [facility], [address] [place] [address] [address], [place], [place], [id number], [place] tel:[phone] [facility] No Information Pierre Barraza. [address] [place], [place], [facility], . tel:[phone] Referring Provider: Madi Howell, [address] [place], [place], [facility]. tel:[phone] Family History Family Member Type Diagnosis Age At Onset No Information Payers Payer name Insurance type Covered alliance party ID Authoriza tion(s) [employer] [facility] [id number] Social History Type Description Quantity Date Captured Comments Sex Female Smoking Status No Information Chief Complaint And Reason For Visit No Information Reason For Referral Reason For Referral No Information History Of Present Illness Encounter Date Complaint History Of Prese nt Illness No Information Functional Status Date Functional Assessmen t No Information Instructions Date Instruction Additional Infor mation No Information Assessments Type Assessment Date No Information Patient Care Teams Name Effective Dates (start - stop) Status Members No Information
--- OUTSIDE RECORDS SUMMARY | 2024-12-23 14:39 | XMS_ITS | Continuity of Care Document ---
Author Organization [facility] Address [address] [place] [address] [address] [place] [address] Phone Care Team Providers Care Application Support Administrator Name Role Phone Aly PT, DPT, Lula Unavailable Unavaila ble Procedures Procedure Date Therapeutic Activities Therapeutic Exercise Therapeutic Activities Neuromuscular Re-Ed Therapeutic Activities Neuromuscular Re-Ed Progress Note Therapeutic Activities Neuromuscular Re-Ed Therapeutic Activities Neuromuscular Re-Ed Doc neg elder mal no plan PRES/ABSN URINE INCON ASSESS PT Evaluation High Complexity Therapeutic Activities Therapeutic Exercise Therapeutic Activities Neuromuscular Re-Ed Therapeutic Exercise Hot or Cold Pack Therapeutic Activities Neuromuscular Re-Ed Therapeutic Exercise Manual Therapy Progress Note Therapeutic Activities Neuromuscular Re-Ed Therapeutic Exercise Manual Therapy Therapeutic Activities Neuromuscular Re-Ed Therapeutic Exercise Manual Therapy Hot or Cold Pack Therapeutic Activities Neuromuscular Re-Ed Manual Therapy Therapeutic Activities Therapeutic Exercise Neuromuscular Re-Ed Therapeutic Activities Therapeutic Exercise Neuromuscular Re-Ed Therapeutic Activities Neuromuscular Re-Ed Hot or Cold Pack Doc neg elder mal no plan PRES/ABSN URINE INCON ASSESS PT Evaluation Moderate Complexity Therapeutic Activities Neuromuscular Re-Ed Therapeutic Exercise Manual Therapy Hot or Cold Pack Advance Directives Directive Yes / No Effective Date File Name No Information Encounters Encounter Description Practice Location Reason(s) For Visit Diagnoses Date Provider Providers Copied on Encounter [facility] [address], [id number], tel:[phone] [place] No Information 4 Lu Lula. . Referring Provider: Access Direct. [facility], [id number], tel:[phone] [place] No Information 4 Lu Lula. . Referring Provider: Access Direct. [facility] [place] [address], [place], [place], [id number], tel:[phone] [place] No Information 4 Lu Lula. . Referring Provider: Access Direct. [facility], [id number], tel:[phone] [place] No Information 4 Lu Lula. . Referring Provider: Access Direct. [facility] [address] [place] [address], [place], [place], [id number], tel:[phone] [place] No Information Lu Lula. . Referring Provider: Access Direct. [facility] [place] [address], [place], [place], [id number], tel:[phone] [place] Unspecified urinary incontinence 4 Aly Barros . Referring Provider: [facility]. [place] [address], [place], [place], [id number], tel:[phone] [place] No Information 4 Muehl Jam. [address] [place] [address], [address], [place], [place], [facility], . tel: [phone] Referring Provider: [facility]. [place] [address], [place], [place], [id number], tel:[phone] [place] No Information 4 Muehl Jam. [address] [place] [address], [address], [place] [address], . tel: [phone] Referring Provider: Access Direct. [facility] [address] [place] [address], [place], [place], [id number], tel:[phone] [place] No Information 4 Muehl Jam. [address] [place] [address], [address], [place] [address], . tel: [phone] Referring Provider: Access Direct. [facility] [address] [place] [address], [place], [place], [id number], tel:[phone] [place] No Information 4 Muehl Jam. [address] [place] [address], [address], [place] [address], . tel: [phone] Referring Provider: Access Direct. [facility] [address] [place] [address], [place], [place], [id number], tel:[phone] [place] No Information Apr-2 0- 4 Muehl Jam. [address] [place] [address], [address], [place] [address], . tel: [phone] Referring Provider: Access Direct. [place] [address], [facility] [place], [id number], tel:[phone] [place] No Information 4 Bailey Soto. . Referring Provider: Access Direct. [facility], [address], [id number], tel:[phone] [place] No Information - 4 Reema Mirza. . Referring Provider: Access Direct. [facility] [address], [id number], tel:[phone] [place] No Information 0 4 Damien Polk. [address] [facility], [address], [place], [facility], . tel: [phone] Referring Provider: Access Direct. [facility] [address] [place] [address], [id number], tel:[phone] [place] No Information 4 Renu Lula. [address] [facility], [address] [address], . tel: [phone] Referring Provider: Access Direct. Family History Family Member Type Diagnosis Age At Onset No Information Payers Payer name Insurance type Covered libertarian ID Authoriza tion(s) Medicare [place] MB [id number] [facility] [id number] Social History Type Description Quantity Date Captured Comments Sex Female Smoking Status No Information Chief Complaint And Reason For Visit No Information Reason For Referral Reason For Referral No Information History Of Present Illness Encounter Date Complaint History Of Prese nt Illness No Information Functional Status Date Functional Assessmen t No Information Instructions Date Instruction Additional Infor daniel Kegel exercises were explained to the patient. Related to Unspecified urinary incontinence Assessments Type Assessment Date No Information Patient Care Teams Name Effective Dates (start - stop) Status Members No Information
--- OUTSIDE RECORDS SUMMARY | 2024-12-23 14:39 | XMS_ITS | Encounter Summary ---
Author Organization [facility] Address [address] [place] [address] Care Team Providers Care Emergency Dept Tech Name Role Phone Benjamin Rees DO Primary Care Provider [phone] Reason for Visit * Reason Onset Date Comments Med Refill 12/08/2024 Encounter Details Date Type Department Care Team (Late st Contact Info) Description 12/08/2024 Telephone [facility] Cardiology [address] [place] [address] Anu Lazo MD [address] [place] [address] Med Refill Social History Tobacco Use Types Packs/Day Years Used Date Smoking Tobacco: Former Smokeless Tobacco: Never Alcohol Use Standard Drinks/Week Comments No 0 (1 standard drink = 0.6 oz pur e alcohol) Comments Unknown Sex and Gender Information Value Date Recorded Sex Assigned at Not on file 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 Pt states she is not out of med S OFFICER * Telephone Encounter - Mavis Rollins - 12/08/2024 1:21 PM CST Patient requesting refill for sotaloL (BETAPACE) 80 mg with 90 day supply. Please send to [facility]. Thank you. Contact [phone] S OFFICER documented in this encounter Plan of Treatment Not on file documented as of this encounter Visit Diagnoses Not on filedocumented in this encounter Care Teams Emergency Dept Tech Relationship Specialty Start Date End Date Benjamin Rees DO PCP - General Internal Medicine 02/26/20 documented as of this encounter
--- OUTSIDE RECORDS SUMMARY | 2024-12-23 14:52 | XMS_ITS | Continuity of Care Document ---
Author Organization [facility] Address [address] [place] [address] [address] [place] [address] Phone Care Team Providers Care Yarder Puncher Name Role Phone Aly PT, DPT, Lula [...] Therapeutic Activities Neuromuscular Re-Ed Manual Therapy Therapeutic Exercise Progress Note Neuromuscular Re-Ed Therapeutic Activities Therapeutic Exercise Manual Therapy Therapeutic Activities Neuromuscular Re-Ed Therapeutic Exercise Manual Therapy Hot or Cold Pack Therapeutic Activities Neuromuscular Re-Ed Manual Therapy Therapeutic Activities Therapeutic Exercise Neuromuscular Re-Ed Therapeutic Activities Neuromuscular Re-Ed Therapeutic Exercise Therapeutic Activities Hot or Cold Pack Neuromuscular Re-Ed Doc neg elder mal no plan PRES/ABSN URINE INCON ASSESS PT Evaluation Moderate Complexity Therapeutic Activities Neuromuscular Re-Ed Therapeutic Exercise Manual Therapy Hot or Cold Pack Advance Directives Directive Yes / No Effective Date File Name No Information Encounters Encounter Description Practice Location Reason(s) For Visit Diagnoses Date Provider Providers Copied on Encounter [facility] [address], [id number], tel:[phone] [place] No Information 4 Lu Lula. . Referring Provider: [facility]. [facility], [id number], tel:[phone] [place] No Information 4 Lu Lula. . Referring Provider: [facility], [id number], tel:[phone] [place] No Information 4 Lu Lula. . Referring Provider: [facility], [id number], tel:[phone] [place] No Information 4 Lu Lula. . Referring Provider: Access Direct. [facility] [address] [place] [address], [place], [place], [id number], tel:[phone] [place] No Information Lu Lula. . Referring Provider: [facility]. [facility], [id number], tel:[phone] [place] Unspecified urinary incontinence 4 Aly Barros . Referring Provider: [facility]. [place] [address], [place], [place], [id number], tel:[phone] [place] No Information 4 Muehl Jam. [address] [place] [address], [address], [place], [place], [facility], . tel: [phone] Referring Provider: [facility] Direct. [place] [address], [place], [place], [id number], tel:[phone] [place] No Information 4 Muehl Jam. [address] [place] [address], [address], [place] [address], . tel: [phone] Referring Provider: Access Direct. [facility] [address] [place] [address], [place], [place], [id number], tel:[phone] [place] No Information 4 Muehl Jam. [address] [place] [address], [address], [place] [address], . tel: [phone] Referring Provider: Access Direct. [facility] [address] [place] [address], [place], [place], [id number], tel:[phone] [place] No Information 4 Muehl Jam. [address] [place] [address], [address], [place] [address], . tel: [phone] Referring Provider: Access Direct. [facility] [address] [place] [address], [place], [place], [id number], tel:[phone] [place] No Information Apr-2 0- 4 Muehl Jam. [address] [place] [address], [address], [place] [address], . tel: [phone] Referring Provider: Access Direct. [place] [address], [facility] [place], [id number], tel:[phone] [place] No Information 4 Bailey Soto. . Referring Provider: Access Direct. [facility], [address], [id number], tel:[phone] [place] No Information - 4 Reema Mirza. . Referring Provider: Access Direct. [facility] [address], [id number], tel:[phone] [place] No Information 0 4 Damien Polk. [address] [facility], [address], [place], [facility], . tel: [phone] Referring Provider: Access Direct. [facility] [address] [place] [address], [id number], tel:[phone] [place] No Information 4 Rneu Lula. [address] [facility], [address] [address], . tel: [phone] Referring Provider: Access Direct. Family History Family Member Type Diagnosis Age At Onset No Information Payers Payer name Insurance type Covered alliance party ID Authoriza tion(s) Medicare [place] MB [id number] [facility] [id number] Social History Type Description Quantity Date Captured [...]
--- OUTSIDE RECORDS SUMMARY | 2024-12-23 14:52 | XMS_ITS | Continuity of Care Document ---
Author Organization [facility] Address [address] [place] [address] [place] [address] Phone Care Team Providers Care Oral Hygienist Name Role Phone Madi Jay Unavailable Unavailable Advance Directives Directive Yes / No Effective Date File Name No Information Encounters Encounter Description Practice Location Reason(s) For Visit Diagnoses Date Provider Providers Copied on Encounter [facility], [address] [place] [address] [address], [place], [place], [id number], [place] tel:[phone] [facility] No Information Pierre Barraza. [address] [place], [place], [facility], . tel:[phone] Referring Provider: Madi Howell, [address] [place], [place], [facility]. tel:[phone] Family History Family Member Type Diagnosis Age At Onset No Information Payers Payer name Insurance type Covered green party ID Authoriza tion(s) [employer] [id number] Social History Type Description Quantity Date Captured [...]
[2024-12-23 15:15] LABS: Add Urine Microscopic? YES; Appearance Urine Clear (Clear); Bacteria Urine None Seen /hpf; Bilirubin Urine Negative (Negative); Blood Urine Negative (Negative); Color Urine Yellow (Yellow); Glucose Urine UA Negative (Negative); Ketones Urine Negative (Negative); Leukocyte Esterase Ur 2+ LEU/UL (Negative); Nitrate Urine Negative (Negative); Non Pathogenic Casts 0-2; Protein Urine Negative (Negative); RBC Urine 0-2 /hpf (0-2); Specific Grav Ur 1.003 (1.001-1.035); Squamous Epithelial Cell Urine None Seen /hpf (Few); Urobilinogen Urine 0.2 mg/dL (<2.0); WBC Urine 21-50 /hpf (0-3)
[2024-12-23 15:16] LABS: Basophils Percent Auto 0.6 % (0.2-1.2); Eosinophils Absolute Auto 0.2 K/mm3 (0-0.3); Eosinophils Percent Auto 4.6 % (0-4.4); Hematocrit 36.5 % (37.0-47.0); Hemoglobin 12.5 g/dL (12.0-15.0); Immature Granulocyte Absolute 0.01 K/mm3 (0.00-0.031); Immature Granulocyte Percent A 0.2 % (0-0.5); Lymphocytes Absolute Auto 2.09 K/mm3 (0.9-3.2); Lymphocytes Percent Auto 42.2 % (18.3-44.2); Mean Corpuscular HGB Conc 34.2 g/dl (32-36); Mean Corpuscular Hemoglobin 31.9 pg (26-34); Mean Corpuscular Volume 93.1 fl (80-100); Mean Platelet Volume 9.1 fl (7.4-10.4); Monocytes Absolute Auto 0.5 K/mm3 (0.1-0.6); Monocytes Percent Auto 10.7 % (2.6-8.5); Neutrophils Absolute Auto 2.1 K/mm3 (1.3-6.7); Neutrophils Percent Auto 41.7 % (45.5-73.1); Platelet Count Result 220 k/mm3 (150-375); Red Blood Count 3.92 M/mm3 (4.2-5.4); Red Cell Distribution Width 12.7 % (11.5-14.5)
[2024-12-23 15:26] LABS: Anion Gap 7 mmol/L (4-12); Blood Urea Nitrogen 11 mg/dL (7-17); Calcium 8.7 mg/dL (8.4-10.2); Carbon Dioxide 26 mmol/L (22-30); Chloride 98 mmol/L (98-107); Estimated CRCL calculation 61 ml/min; Estimated Glomerular Filt Rate > 60; Glucose 97 mg/dL (65-110); Potassium 4.2 mmol/L (3.4-5.0); Sodium 131 mmol/L (137-145)
--- NOTE | 2024-12-23 15:52 | ED.FEMALEGU ---
HPI - Female Genitourinary General Chief complaint: Urogenital-Female Stated complaint: Bladder infection, Time Seen by Provider: 12/23/24 14:42 Source: patient and old records reviewed Mode of arrival: ambulatory Limitations: no limitations History of Present Illness HPI Narrative: Patient is an 84-year-old female who presents the ED with report of urinary complaints. Patient reports over the last couple of days, she has had urinary frequency, urgency, lower abdominal / suprapubic pressure. Feels similar to her previous UTIs. Last UTI was in October. She has been drinking increase fluid, but states her urine has been cloudy. Denies significant pain, lower back pain, nausea, vomiting, fevers, hematuria. Patient is on Xarelto due to history of AFib and blood clots. Related Data Home Medications ?Medication ?Instructions ?Recorded ?Confirmed ?Last Taken ?Type rivaroxaban 20 mg tablet (Xarelto) 20 mg PO HS 11/02/19 10/02/24 02/23/21 21:00 History cholecalciferol (vitamin D3) 25 25 mcg PO DAILY 09/10/20 10/02/24 02/23/21 07:00 History mcg (1,000 unit) capsule calcium 600 mg (as 1 tablet PO DAILY 02/20/21 10/02/24 02/23/21 07:00 History carbonate)-vitamin D3 5 mcg (200 unit) tablet mecobalamin (vitamin B12) 1,000 1,000 mcg PO DAILY 07/31/21 10/02/24 Unknown History mcg chewable tablet sotalol 80 mg tablet 40 mg PO BID 09/15/21 10/02/24 Unknown History cranberry extract 1 tablet PO DAILY 10/02/24 10/02/24 Unknown History Allergies Allergy/AdvReac Type Severity Reaction Status Date / Time cortisone Allergy Intermediate Hypertensio Verified 08/25/24 12:54 n amoxicillin Allergy Unknown Chest Verified 08/25/24 12:54 tightness/THROAT TIGHTNESS ampicillin Allergy Unknown CHEST Verified 08/25/24 12:54 TIGHTNESS/THROAT TIGHTNESS ciprofloxacin Allergy Unknown UNSURE Verified 08/25/24 12:54 meperidine AdvReac Unknown N/V, Verified 08/25/24 12:54 DIZZINESS tramadol AdvReac Unknown Nausea Verified 08/25/24 12:54 STEROIDS Allergy Severe SEVERE Uncoded 06/26/24 10:21 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71 Cholecystitis Generalized abdominal pain Chronic UTI (urinary tract infection) HTN (hypertension), benign GERD (gastroesophageal reflux disease) History of migraine headaches Afib Surgical History Surgical History History of colposcopy (11/25/16) colpo/ bx - Benign H/O lumpectomy x 4 Hx laparoscopic cholecystectomy H/O heart surgery cardioversion for AFIB History of left knee replacement (~2011) left knee Family History Family History Sibling Hypertension Asthma Family history of diabetes mellitus in first degree relative Father Hypertension Malignant neoplasm of prostate Family history of malignant neoplasm of urinary bladder Mother Cerebrovascular accident Uterine cancer Social History Social History Social History: Wishes to be a full code. Does not have a healthcare power of attorney at law. She designates her daughter, Nicolle Suarez, to be her medical decision maker if needed. Smoking packs per day: 0.75 Smoking cigarettes per day: 15.0 Years smoked: 8 Smoking pack-years: 6.00 Smoking status: Former smoker Second hand tobacco smoke exposure: No Smoking end date: 05/15/85 Additional smoking assessment comments: 30 years ago Alcohol intake: never Alcohol use details: VERY RARELY IN PAST Substance use: never Lack of Transportation: No Lack of Food: Never True Current Housing: I Have Housing Concerned About Future Housing: No Difficulty Paying Gas/Electric Bills: No Difficulty Paying for Meds: No Currently Unemployed: No Education: Master's Degree or Higher Difficulty w/ Childcare or Family Care: No Living arrangements: with family Additional living arrangements comments: - MAXIM who is 90 years old 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 HEAD: Normocephalic, atraumatic. RESPIRATORY: Airway patent, respirations nonlabored. Clear to auscultation bilaterally, no rales, rhonchi, wheezing. CARDIOVASCULAR: Regular rate and rhythm without murmurs, rubs, or gallops. ABDOMINAL: Soft, mild tenderness throughout lower abdomen/suprapubic region, nondistended. Normoactive BS. MUSCULOSKELETAL: Moves all extremities. No gross deformities. SKIN: Warm, dry, normal color. NEURO: A&O X3. Speech clear. PSYCHIATRIC: Appropriate mood and affect. Normal interaction. Course Vital Signs Vital signs: Vital Signs Temperature 97.3 F L 12/23/24 14:39 Pulse Rate 62 12/23/24 14:39 Respiratory Rate 20 12/23/24 14:39 Blood Pressure 108/75 12/23/24 14:39 Pulse Oximetry 99 12/23/24 14:39 Oxygen Delivery Room Air 12/23/24 14:39 Temperature 97.3 F L 12/23/24 14:39 Pulse Rate 62 12/23/24 14:39 Respiratory Rate 20 12/23/24 14:39 Blood Pressure 108/75 12/23/24 14:39 Pulse Oximetry 99 12/23/24 14:39 Oxygen Delivery Room Air 12/23/24 14:39 MDM - Female Genitourinary MDM Narrative Medical decision making narrative: Patient presented to ED with several day history of UTI symptoms. History of similar. Vital signs are stable upon arrival. Patient is afebrile here. Cbc without leukocytosis or anemia. CMP is unremarkable. Stable kidney function. Urine appears infectious with 2+ leuk esterase, 21-50 WBC. Sent for culture. Will treat given patient's acute symptomatology. Per records, previous urine cultures have resulted positive for Citrobacter koseri. Sensitive to cephalosporins. patient has tolerated Keflex in the past. CT scan of abdomen/pelvis was obtained and showing findings of cystitis, no other acute changes. No obstructive process. Postvoid residual was performed and no evidence of retention (<50mL). Feel patient is safe for discharge home at this time on oral antibiotics. Will also given Pyridium for sx's relief. Will refer to Urology given recurrent UTIs. Also recommended follow-up with primary care doctor for further evaluation. Given return precautions. Patient is in agreement with plan and feels comfortable with discharge home. Discharged in stable condition. Medical Records Attestation: I reviewed the patient's medical records. Lab Data Attestation: I reviewed the patient's lab results. 12/23/24 15:11 12/23/24 15:11 Labs: Lab Results 12/23/24 12/23/24 Range/Units 14:59 15:11 WBC 5.0 (4.5-10.0) K/mm3 RBC 3.92 L (4.2-5.4) M/mm3 Hgb 12.5 (12.0-15.0) g/dL Hct 36.5 L (37.0-47.0) % MCV 93.1 (80-100) fl MCH 31.9 (26-34) pg MCHC 34.2 (32-36) g/dl RDW 12.7 (11.5-14.5) % Plt Count 220 (150-375) k/mm3 MPV 9.1 (7.4-10.4) fl Immature Gran % (Auto) 0.2 (0-0.5) % Neut % (Auto) 41.7 L (45.5-73.1) % Lymph % (Auto) 42.2 (18.3-44.2) % [place] % (Auto) 10.7 H (2.6-8.5) % Eos % (Auto) 4.6 H (0-4.4) % Baso % (Auto) 0.6 (0.2-1.2) % Lymph # (Auto) 2.09 (0.9-3.2) K/mm3 [place] # (Auto) 0.5 (0.1-0.6) K/mm3 Eos # (Auto) 0.2 (0-0.3) K/mm3 Baso # (Auto) 0.0 (0.0-0.1) K/mm3 Abs Immat Gran (auto) 0.01 (0.00-0.031) K/mm3 Absolute Neuts (auto) 2.1 (1.3-6.7) K/mm3 Absolute Nucleated RBC 0.000 (0.0-0.012) K/mm3 Nucleated RBC % 0.0 (0.0-0.2) % Sodium 131 L (137-145) mmol/L Potassium 4.2 (3.4-5.0) mmol/L Chloride 98 (98-107) mmol/L Carbon Dioxide 26 (22-30) mmol/L Anion Gap 7 (4-12) mmol/L BUN 11 (7-17) mg/dL Creatinine 0.60 L (0.7-1.0) mg/dL Estim Creat Clear Calc 61 ml/min Estimated GFR > 60 (59 - ) Glucose 97 (65-110) mg/dL Calcium 8.7 (8.4-10.2) mg/dL Urine Color Yellow (Yellow) Urine Appearance Clear (Clear) Urine pH 7.0 (5.0-9.0) Ur Specific [place] 1.003 (1.001-1.035) Urine Protein Negative (Negative) mg/dL Urine Glucose (UA) Negative (Negative) mg/dL Urine Ketones Negative (Negative) mg/dL Ur Blood (Man) Negative (Negative) Urine Nitrate Negative (Negative) Urine Bilirubin Negative (Negative) Urine Urobilinogen 0.2 (<2.0) mg/dL Leukocyte Esterase Rfl 2+ H (Negative) SUNIL/UL Urine RBC 0-2 (0-2) /hpf Urine WBC 21-50 H (0-3) /hpf Ur Squamous Epith Cells None seen (Few) /hpf Urine Bacteria None seen /hpf Urine Casts 0-2 Imaging Data Attestation: I personally reviewed and interpreted this imaging study as follows: Radiologist's impression: ITS Impressions Abdomen/Pelvis CT 12/23/24 16:49 IMPRESSION: Possible cystitis, correlate with urinalysis. Otherwise, no acute abdominopelvic process detected. Discharge Plan Discharge Clinical Impression: UTI (urinary tract infection) Qualifiers: Urinary tract infection type: acute cystitis Hematuria presence: without hematuria Qualified Code(s): N30.00 - Acute cystitis without hematuria Patient Disposition: Home, Self-Care Condition: Stable Instructions: Antibiotic Form, Urinary Tract Infection in Women (ED) Additional Instructions: Take antibiotics as prescribed for urinary tract infection. Take Pyridium as prescribed for symptom relief. Stay well hydrated. Follow-up with your primary care doctor and/or Urology for further evaluation and urine culture results. Return to the ED if you experience worsening or severe pain, unable to keep down food/ drink / antibiotics, fevers, blood in urine, or any other symptoms of concern. Patient Language: French Prescriptions: New cephalexin 500 mg capsule 500 mg PO Q6H 7 Days Qty: 28 0RF phenazopyridine [Pyridium] 200 mg tablet 200 mg PO TID Qty: 6 0RF No Action cholecalciferol (vitamin D3) 25 mcg (1,000 unit) capsule 25 mcg PO DAILY sotalol 80 mg tablet 40 mg PO BID Xarelto 20 mg tablet 20 mg PO HS Rx Instructions: patient takes at dinner time mecobalamin (vitamin B12) 1,000 mcg tablet,chewable 1,000 mcg PO DAILY triamcinolone acetonide 0.1 % ointment 1 applic topical BID Qty: 80 1RF estradiol 0.01 % (0.1 mg/gram) cream 1 g vaginal DAILY Qty: 42.5 1RF Rx Instructions: for 14 days cranberry extract 1 tablet PO DAILY calcium carbonate-vitamin D3 600 mg(1,500mg) -200 unit Tablet 1 tablet PO DAILY cephalexin 500 mg capsule 500 mg PO Q12H 5 Days Qty: 10 0RF sumatriptan succinate 50 mg tablet See Rx Instructions PO .COMPLEX Qty: 10 1RF Rx Instructions: take 1 tab at onset of migraine; if no relief may repeat 1 tab after at least 2 hrs; max = 4 tabs/24 hr PO amlodipine 5 mg tablet 5 mg PO DAILY Qty: 90 1RF omeprazole 20 mg capsule,delayed release(DR/EC) See Rx Instructions .ROUTE .COMPLEX Qty: 90 1RF Dose Instruction: TAKE 1 CAPSULE DAILY Rx Instructions: TAKE 1 CAPSULE DAILY Follow-up/Referrals: Aki Johnson MD [Physician] - (UROLOGY) Benjamin Rees DO [Primary Care Provider] - Time of Disposition: 17:21
[2024-12-23 17:15] VITALS: BP 110/72; PULSE 65; RESP 16; O2SAT 97
== END 2024-12-23 18:06 | disposition home or self-care (01) ==
PROVIDERS: Emergency Provider Physician Assistant; PCP Internal Medicine
DX: N30.00 Acute cystitis without hematuria (principal); I48.91 Unspecified atrial fibrillation; I10 Essential (primary) hypertension; K21.9 Gastro-esophageal reflux disease without esophagitis; M17.11 Unilateral primary osteoarthritis, right knee; Z96.652 Presence of left artificial knee joint; Z86.718 Personal history of other venous thrombosis and embolism; Z86.711 Personal history of pulmonary embolism; Z87.891 Personal history of nicotine dependence; Z90.49 Acquired absence of other specified parts of digestive tract; Z79.899 Other long term (current) drug therapy; Z79.01 Long term (current) use of anticoagulants
CPT/HCPCS: 36415; 74176; 80048; 81001; 85025; 87086; 99284

== ENCOUNTER 2025-02-01 07:35 | Outpatient (CLI) | payer MEDICARE, SELFPAY ==
--- OUTSIDE RECORDS SUMMARY | 2025-02-01 07:41 | XMS_ITS | Clinical Summary ---
Author Organization [facility] [address] Address [address] [place] [address] Care Team Providers Care Machinist Helper Marine Name Role Phone Benjamin Rees DO Primary Care Provider [phone]- [phone] Allergies Active Allergy Reactions Criticality Noted Date [...] (two) times a day 180 tablet 2 Active Active Problems Problem Noted Date Diagnosed Date Localized edema 02/08/2024 Dizziness 12/24/2021 Medication side effects 12/24/2021 Encounter for monitoring sotalol therapy 019 QT prolongation 12/08/2018 Labile hypertension 09/12/2018 History of cardioversion 08/04/2018 Atrial fibrillation 07/11/2018 SOB (shortness of breath) on exertion 07/11/2018 Chronic anticoagulation 07/11/2018 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 Medical [facility] Cardiology [address] [facility] [address] [place] [address] Anu Lazo MD Med Refill 12/08/2024 Telephone [facility] Cardiology [address] [facility] [address] [place] [address] Anu Lazo MD Med Refill from Last 3 Months Medical History Medical History Date Comments Hyperlipidemia Atrial fibrillation (HCC) Family History Medical History Relation Name [...] on file Legal Sex Female 7:54 PM RN MEDICATION Gender Identity Not on file Sexual Orientation Not on file Obstetrics History Last Filed Vital Signs Vital Sign Reading Time Taken Comments Blood Pressure 120/64 09/28/2024 11:29 AM RN MEDICATION Pulse 57 09/28/2024 11:29 AM RN MEDICATION Temperature - - Respiratory Rate 16 07/02/2017 10:24 AM CDT Oxygen Saturation 96% 09/28/2024 11:29 AM RN MEDICATION Inhaled Oxygen Concentration - - Weight 75.8 kg (167 lb) 09/28/2024 11:29 AM RN MEDICATION Height 172.7 cm (5' 8 ) 09/28/2024 11:29 AM RN MEDICATION Body Mass Index 25.39 09/28/2024 11:29 AM RN MEDICATION Plan of Treatment Health Maintenance Due Date Last Done Comments Depression Screening 1941 Fall Risk Assessment 1941 Osteoporosis Screening-Bone Density Scan 1941 DTaP/Tdap/Td Vaccine (1 - Tdap) 1952 Hepatitis B Screening 1959 Well Visit 65+ 2006 Zoster Vaccine (2 of 3) 10/19/2012 08/24/2012 Pneumococcal vaccine 65+ (2 of 2 - PPSV23) 10/17/2019 10/17/2018 Influenza Vaccine (#1) 2024 9, 08/03/2018, 08/15/2017, Additional history exists Insurance MEDICARE MEDICARE [facility] MEDICARE SUPPLEMENT Care Teams Machinist Helper Marine Relationship Specialty Start Date End Date Benjamin Rees DO PCP - General Internal Medicine 02/26/20
--- OUTSIDE RECORDS SUMMARY | 2025-02-01 07:41 | XMS_ITS | Referral Summary ---
Author Organization [facility] [address] [place] [address] [address] [place] [address] Care Team Providers Care Bull Driver Name Role Phone Benjamin Rees DO Primary Care Provider [phone]- [phone] Encounters Date Type Department Care Team Description 12/20/2024 Telephone [facility] Medical [facility] Cardiology [address] [place] [address] Anu Lazo MD Med Refill 12/08/2024 Telephone [facility] Cardiology [address] [place] [address] Anu Lazo MD Med Refill from Last 3 Months Allergies Active Allergy [...] a day 180 tablet 2 5 Active Active Problems Problem Noted Date Diagnosed [...] on file Legal Sex Female 7:54 PM WIND SCIENCE AND PLANNING Gender Identity Not on file Sexual Orientation Not on file Last Filed Vital Signs Vital Sign Reading Time Taken Comments Blood Pressure 120/64 09/28/2024 11:29 AM WIND SCIENCE AND PLANNING Pulse 57 09/28/2024 11:29 AM WIND SCIENCE AND PLANNING Temperature - - Respiratory Rate 16 07/02/2017 10:24 AM CDT Oxygen Saturation 96% 09/28/2024 11:29 AM WIND SCIENCE AND PLANNING Inhaled Oxygen Concentration - - Weight 75.8 kg (167 lb) 09/28/2024 11:29 AM WIND SCIENCE AND PLANNING Height 172.7 cm (5' 8 ) 09/28/2024 11:29 AM WIND SCIENCE AND PLANNING Body Mass Index 25.39 09/28/2024 11:29 AM WIND SCIENCE AND PLANNING Plan of Treatment Not on file Insurance MEDICARE MEDICARE [facility] MEDICARE SUPPLEMENT Care Teams Bull Driver Relationship Specialty Start Date End Date Benjamin Rees PCP - General Internal Medicine 02/26/20
--- OUTSIDE RECORDS SUMMARY | 2025-02-01 07:41 | XMS_ITS | Clinical Summary ---
Author Organization [facility] [place] Address [address] [place] [address] Phone Care Team Providers Care Power Press Supervisor Name Role Phone Zain Gaytan MD Primary [...] MD Referring Provider: Zain Gaytan MD [address] [place] [address] Other: Dr Renita Nelson Problem Noted Date [...] on file Legal Sex Female 3:48 AM ROTARY HELPER Gender Identity Not on file Sexual Orientation [...] VACCINES (1 - Tdap) 1960 PNEUMOCOCCAL VACCINE 50+ YEARS (1 of 1 - PCV) 10/07/19 91 ZOSTER VACCINE (1 of 2) 1991 OSTEOPOROSIS SCREENING 2006 RSV VACCINE (60+ or ) (1 - 1-dose 75+ series) 2016 INFLUENZA VACCINE (#1) 2024 Insurance MEDICARE PART A AND B [facility] Care Teams Power Press Supervisor Relationship Specialty Start Date End Date Zain Gaytan MD PCP - General Internal Medicine 05/15/15
--- OUTSIDE RECORDS SUMMARY | 2025-02-01 07:41 | XMS_ITS | Continuity of Care Document ---
Author Organization [facility] Address [address] [place] [address] [place] [address] Phone Care Team Providers Care J2Ee Software Engineer Name Role Phone Madi Jay Unavailable Unavailable Advance Directives Directive Yes / No Effective Date File Name No Information Encounters Encounter Description Practice Location Reason(s) For Visit Diagnoses Date Provider Providers Copied on Encounter [facility], [id number] [place] [address] [address], [place], [place], [id number], [place] tel:[phone] [facility] No Information Pierre Barraza. [address], [place], [facility], . tel:[phone] Referring Provider: Madi Howell, [address], [place], [facility]. tel:[phone] Family History Family Member Type Diagnosis Age At Onset No Information Payers Payer name Insurance type Covered alliance party ID Authoriza tion(s) [employer] [facility] [id number] Social History Type Description Quantity Date Captured [...]
--- OUTSIDE RECORDS SUMMARY | 2025-02-01 07:41 | XMS_ITS | Encounter Summary ---
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
[2025-02-01 08:24] LABS: Anion Gap 7 mmol/L (4-12); Blood Urea Nitrogen 7 mg/dL (7-17); Calcium 9.2 mg/dL (8.4-10.2); Carbon Dioxide 30 mmol/L (22-30); Chloride 96 mmol/L (98-107); Cholesterol 179 mg/dL (0-200); Estimated Glomerular Filt Rate > 60; Glucose 103 mg/dL (65-110); HDL Direct 56 mg/dL; Sodium 133 mmol/L (137-145); Triglycerides 136 mg/dL (<150)
[2025-02-01 08:35] LABS: LDL Cholesterol Direct 80 mg/dL
== END 2025-02-01 07:36 | disposition home or self-care (01) ==
PROVIDERS: PCP Internal Medicine; Visit Provider Clinical Nurse Specialist
DX: I48.91 Unspecified atrial fibrillation (principal); I10 Essential (primary) hypertension; E78.5 Hyperlipidemia, unspecified
CPT/HCPCS: 36415; 80048; 80061

== ENCOUNTER 2025-02-06 14:23 | Outpatient (CLI) | payer MEDICARE, SELFPAY ==
--- OUTSIDE RECORDS SUMMARY | 2025-02-06 16:53 | XMS_ITS | Referral Summary ---
Author Organization [facility] [address] [place] [address] [address] [place] [address] Care Team Providers Care Analytics Manager Name Role Phone Benjamin Rees DO Primary Care Provider [phone]- [phone] Encounters Date Type Department Care Team Description 12/20/2024 Telephone [facility] Medical [facility] Cardiology [address] [place] [address] Anu Lazo MD Med Refill 12/08/[address] [facility] Cardiology [address] [place] [address] Anu Lazo MD Med Refill [...] on file Legal Sex Female 7:54 PM SNOW TECHNICIAN Gender Identity Not on file Sexual Orientation Not on file Last Filed Vital Signs Vital Sign Reading Time Taken Comments Blood Pressure 120/64 09/28/2024 11:29 AM SNOW TECHNICIAN Pulse 57 09/28/2024 11:29 AM SNOW TECHNICIAN Temperature - - Respiratory Rate 16 07/02/2017 10:24 AM CDT Oxygen Saturation 96% 09/28/2024 11:29 AM SNOW TECHNICIAN Inhaled Oxygen Concentration - - Weight 75.8 kg (167 lb) 09/28/2024 11:29 AM SNOW TECHNICIAN Height 172.7 cm (5' 8 ) 09/28/2024 11:29 AM SNOW TECHNICIAN Body Mass Index 25.39 09/28/2024 11:29 AM SNOW TECHNICIAN Plan of Treatment Not on file Insurance MEDICARE MEDICARE [facility] MEDICARE SUPPLEMENT Care Teams Analytics Manager Relationship Specialty Start Date End Date Benjamin Rees PCP - General Internal Medicine 02/26/20
--- OUTSIDE RECORDS SUMMARY | 2025-02-06 16:53 | XMS_ITS | Clinical Summary ---
Author Organization [facility] [place] [address] Address [address] [place] [address] Care Team Providers Care Soa Integration Developer Name Role Phone Benjamin Rees DO Primary Care Provider [phone]- [phone] Allergies Active Allergy Reactions Criticality Noted Date [...] Type Department Care Team Description 12/20/2024 Telephone [facility] Medical [facility] Cardiology 10 [facility] [address] [place] [address] Anu Lazo MD Med Refill 12/08/2024 Telephone [facility] Cardiology [address] [facility] [address] [place] [phone] Anu Lazo MD Med Refill from Last [...] on file Legal Sex Female 7:54 PM CUFFER Gender Identity Not on file Sexual Orientation Not on file Obstetrics History Last Filed Vital Signs Vital Sign Reading Time Taken Comments Blood Pressure 120/64 09/28/2024 11:29 AM CUFFER Pulse 57 09/28/2024 11:29 AM CUFFER Temperature - - Respiratory Rate 16 07/02/2017 10:24 AM CDT Oxygen Saturation 96% 09/28/2024 11:29 AM CUFFER Inhaled Oxygen Concentration - - Weight 75.8 kg (167 lb) 09/28/2024 11:29 AM CUFFER Height 172.7 cm (5' 8 ) 09/28/2024 11:29 AM CUFFER Body Mass Index 25.39 09/28/2024 11:29 AM CUFFER Plan of Treatment Health Maintenance Due Date [...] 08/15/2017, Additional history exists Insurance MEDICARE MEDICARE [facility] MEDICARE SUPPLEMENT Care Teams Soa Integration Developer Relationship Specialty Start Date End Date Benjamin Rees DO PCP - General Internal Medicine 02/26/20
--- OUTSIDE RECORDS SUMMARY | 2025-02-06 16:54 | XMS_ITS | Continuity of Care Document ---
Author Organization [facility] Address [address] [place] [address] [address] [place] [address] Phone Care Team Providers Care Dispute Specialist Name Role Phone Aly PT, DPT, Lula [...] Diagnoses Date Provider Providers Copied on Encounter [facility] [address], [id number], tel:[phone] [place] No Information 4 Lu Lula. . Referring Provider: Access Direct. [facility], [id number], tel:[phone] [place] No Information 4 Lu Lula. . Referring Provider: Access Direct. [facility], [id number], tel:[phone] [place] No Information 4 Lu Lula. . Referring Provider: Access Direct. [facility], [id number], tel:[phone] [place] No Information 4 Lu Lula. . Referring Provider: Access Direct. [facility] [address] [place] [address], [place], [place], [id number], tel:[phone] [place] No Information Lu Lula. . Referring Provider: Access Direct. [facility], [id number], tel:[phone] [place] Unspecified urinary incontinence 4 Aly Barros . Referring Provider: Access Direct. [address] [address], [place], [place], [id number], tel:[phone] [place] No Information 4 Muehl Jam. [address] [place] [address], [address], [place], [place], [facility], . tel: [phone] Referring Provider: Access Direct. [address] [address], [place], [place], [id number], tel:[phone] [place] No Information 4 Muehl Jam. [address] [place] [address], [address], [place] [address], . tel: [phone] Referring Provider: Access Direct. [facility] [address] [place] [address], [place], [id number], tel:[phone] [place] No Information 4 Muehl Jam. [address] [place] [address], [address], [place] [address], . tel: [phone] Referring Provider: Access Direct. [facility] [address] [place] [address], [place], [id number], tel:[phone] [place] No Information 4 Muehl Jam. [address] [place] [address], [address], [place] [address], . tel: [phone] Referring Provider: Access Direct. [facility] [address] [address], [place], [place], [id number], tel:[phone] [place] No Information Apr-2 0- 4 Muehl Jam. [address] [place] [address], [address], [place] [address], . tel: [phone] Referring Provider: Access Direct. [address] [address], [facility] [place], [id number], tel:[phone] [place] No Information 4 Bailey Soto. . Referring Provider: Access Direct. [facility], [address], [id number], tel:[phone] [place] No Information - 4 Reema Mirza. . Referring Provider: Access Direct. [facility] [address], [id number], tel:[phone] [place] No Information 0 4 Damien Polk. [address] [facility], [address], [place], [facility], . tel: [phone] Referring Provider: Access Direct. [facility] [address] [place] [address], [id number], tel:[phone] [place] No Information 4 Renu Lula. [address] [facility], [address] [address], . tel: [phone] Referring Provider: Access Direct. Family History Family Member Type Diagnosis Age At Onset No Information Payers Payer name Insurance type Covered green party ID Authoriza tion(s) [place] [id number] [facility] [id number] Social History Type Description Quantity Date Captured [...]
--- OUTSIDE RECORDS SUMMARY | 2025-02-06 16:54 | XMS_ITS | Continuity of Care Document ---
Author Organization [facility] Address [address] [place] [address] [place] [address] Phone Care Team Providers Care Gusset Edger Name Role Phone Madi Jay Unavailable Unavailable Advance Directives Directive Yes / No Effective Date File Name No Information Encounters Encounter Description Practice Location Reason(s) For Visit Diagnoses Date Provider Providers Copied on Encounter [facility], [address] [place] [address] [address], [place], [place], [id number], [place] tel:[phone] [facility] No Information Pierre Barraza. [address] [place], [place], [facility], . tel:[phone] Referring Provider: Madi Howell, [address] [place], [place], [facility]. tel:[phone] Family History Family Member Type Diagnosis Age At Onset No Information Payers Payer name Insurance type Covered democrat ID Authoriza tion(s) [facility] [id number] Social History Type Description Quantity Date Captured [...]
--- OUTSIDE RECORDS SUMMARY | 2025-02-06 16:54 | XMS_ITS | Encounter Summary ---
Author Organization [facility] Address [address] 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
--- OUTSIDE RECORDS SUMMARY | 2025-02-06 16:54 | XMS_ITS | Clinical Summary ---
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
[2025-02-06 19:48] LABS: Add Urine Microscopic? YES; Appearance Urine Clear (Clear); Bacteria Urine None Seen /hpf; Bilirubin Urine Negative (Negative); Blood Urine Negative (Negative); Color Urine Yellow (Yellow); Glucose Urine UA Negative (Negative); Ketones Urine Negative (Negative); Leukocyte Esterase Ur 1+ LEU/UL (Negative); Nitrate Urine Negative (Negative); Non Pathogenic Casts 0-2; Protein Urine Negative (Negative); RBC Urine 0-2 /hpf (0-2); Squamous Epithelial Cell Urine Occasional /hpf (Few); Urobilinogen Urine 0.2 mg/dL (<2.0); WBC Urine 0-5 /hpf (0-3)
[2025-02-06 19:52] LABS: Need Manual Microscopic Reviewed
[2025-02-06 19:58] LABS: Alanine Aminotransferase 19 U/L (6-35); Albumin Level 4.1 g/dL (3.5-5.1); Alkaline Phosphatase 77 U/L (38-126); Anion Gap 7 mmol/L (4-12); Aspartate Amino Transferase 33 U/L (14-36); Bilirubin,Total 0.3 mg/dL (0.2-1.3); Blood Urea Nitrogen 12 mg/dL (7-17); Calcium 8.9 mg/dL (8.4-10.2); Carbon Dioxide 30 mmol/L (22-30); Chloride 96 mmol/L (98-107); Estimated Glomerular Filt Rate > 60; Glucose 89 mg/dL (65-110); Potassium 4.2 mmol/L (3.4-5.0); Sodium 133 mmol/L (137-145)
[2025-02-06 20:10] LABS: Basophils Absolute Auto 0.1 K/mm3 (0.0-0.1); Basophils Percent Auto 0.7 % (0.2-1.2); Eosinophils Absolute Auto 0.3 K/mm3 (0-0.3); Eosinophils Percent Auto 3.8 % (0-4.4); Hematocrit 40.5 % (37.0-47.0); Hemoglobin 13.3 g/dL (12.0-15.0); Immature Granulocyte Absolute 0.02 K/mm3 (0.00-0.031); Immature Granulocyte Percent A 0.3 % (0-0.5); Lymphocytes Absolute Auto 2.74 K/mm3 (0.9-3.2); Lymphocytes Percent Auto 36.9 % (18.3-44.2); Mean Corpuscular HGB Conc 32.8 g/dl (32-36); Mean Corpuscular Hemoglobin 31.3 pg (26-34); Mean Corpuscular Volume 95.3 fl (80-100); Mean Platelet Volume 9.4 fl (7.4-10.4); Monocytes Absolute Auto 0.8 K/mm3 (0.1-0.6); Monocytes Percent Auto 10.9 % (2.6-8.5); Neutrophils Absolute Auto 3.5 K/mm3 (1.3-6.7); Neutrophils Percent Auto 47.4 % (45.5-73.1); Platelet Count Result 262 k/mm3 (150-375); Red Blood Count 4.25 M/mm3 (4.2-5.4); Red Cell Distribution Width 12.9 % (11.5-14.5); White Blood Count 7.4 K/mm3 (4.5-10.0)
[2025-02-10 02:44] LABS: Immunoglobulin A 224 mg/dL (70-320); TTG IGA AB <1.0 U/mL
== END 2025-02-06 14:24 | disposition home or self-care (01) ==
LOC: ANHGOSHLAB 14:25
PROVIDERS: PCP Internal Medicine; Visit Provider Clinical Nurse Specialist
DX: R19.7 Diarrhea, unspecified (principal); I10 Essential (primary) hypertension
CPT/HCPCS: 36415; 80053; 81001; 82784; 83516; 84443; 85025; 87086

== ENCOUNTER 2025-02-07 08:28 | Outpatient (CLI) | payer MEDICARE, SELFPAY ==
--- OUTSIDE RECORDS SUMMARY | 2025-02-07 08:40 | XMS_ITS | Referral Summary ---
Author Organization [facility] [address] [place] [address] [address] [place] [address] Care Team Providers Care Flotation Tender Helper Name Role Phone Benjamin Rees DO Primary Care Provider +1- [phone] Encounters Date Type Department Care Team Description 12/20/2024 Telephone [facility] Medical [facility] Cardiology [address] [place] [address] Anu Lazo MD Med Refill 12/08/2024 Telephone [facility] Cardiology [address] [place] [address] Anu Lazo MD Med Refill [...] on file Legal Sex Female 7:54 PM CLOCK MECHANIC Gender Identity Not on file Sexual Orientation Not on file Last Filed Vital Signs Vital Sign Reading Time Taken Comments Blood Pressure 120/64 09/28/2024 11:29 AM CLOCK MECHANIC Pulse 57 09/28/2024 11:29 AM CLOCK MECHANIC Temperature - - Respiratory Rate 16 07/02/2017 10:24 AM CDT Oxygen Saturation 96% 09/28/2024 11:29 AM CLOCK MECHANIC Inhaled Oxygen Concentration - - Weight 75.8 kg (167 lb) 09/28/2024 11:29 AM CLOCK MECHANIC Height 172.7 cm (5' 8 ) 09/28/2024 11:29 AM CLOCK MECHANIC Body Mass Index 25.39 09/28/2024 11:29 AM CLOCK MECHANIC Plan of Treatment Not on file Insurance MEDICARE MEDICARE [facility] MEDICARE SUPPLEMENT Care Teams Flotation Tender Helper Relationship Specialty Start Date End Date Benjamin Rees PCP - General Internal Medicine 02/26/20
--- OUTSIDE RECORDS SUMMARY | 2025-02-07 08:40 | XMS_ITS | Encounter Summary ---
Author Organization [facility] Address [address] Ayonn: [place] [address] Care Team Providers Care Investment Underwriter Name Role Phone Zain Gaytan MD Primary [...] on file Legal Sex Female 3:48 AM EDITING INTERNSHIP Gender Identity Not on file Sexual Orientation Not on file documented as of this encounter Plan of Treatment Not on file documented as of this encounter Visit Diagnoses Not on filedocumented in this encounter Care Teams Investment Underwriter Relationship Specialty Start Date End Date Zain Gaytan MD PCP - General Internal Medicine 05/15/15 documented as of this encounter
--- OUTSIDE RECORDS SUMMARY | 2025-02-07 08:40 | XMS_ITS | Clinical Summary ---
Author Organization [facility] [address] Address [address] [place] [address] Care Team Providers Care Fiberglass Machine Operator Name Role Phone Benjamin Rees DO Primary Care Provider +1- [phone] Allergies Active Allergy Reactions Criticality Noted Date [...] Type Department Care Team Description 12/20/2024 Telephone [facility] Medical [facility] Cardiology [address] [facility] [address] [place] [address] Anu Lazo MD Med Refill 12/08/2024 Telephone [facility] Cardiology [address] [facility] [address] [place] [address] Anu Lazo MD Med Refill from Last [...] on file Legal Sex Female 7:54 PM SHREDDER PICKER Gender Identity Not on file Sexual Orientation Not on file Obstetrics History Last Filed Vital Signs Vital Sign Reading Time Taken Comments Blood Pressure 120/64 09/28/2024 11:29 AM SHREDDER PICKER Pulse 57 09/28/2024 11:29 AM SHREDDER PICKER Temperature - - Respiratory Rate 16 07/02/2017 10:24 AM CDT Oxygen Saturation 96% 09/28/2024 11:29 AM SHREDDER PICKER Inhaled Oxygen Concentration - - Weight 75.8 kg (167 lb) 09/28/2024 11:29 AM SHREDDER PICKER Height 172.7 cm (5' 8 ) 09/28/2024 11:29 AM SHREDDER PICKER Body Mass Index 25.39 09/28/2024 11:29 AM SHREDDER PICKER Plan of Treatment Health Maintenance Due Date [...] 08/15/2017, Additional history exists Insurance MEDICARE MEDICARE [facility] MEDICARE SUPPLEMENT Care Teams Fiberglass Machine Operator Relationship Specialty Start Date End Date Benjamin Rees DO PCP - General Internal Medicine 02/26/20
--- OUTSIDE RECORDS SUMMARY | 2025-02-07 08:40 | XMS_ITS | Clinical Summary ---
Author Organization [facility] [place] Address [address] [place] [address] Phone Care Team Providers Care Ore Grader Name Role Phone Zain Gaytan MD Primary [...] MD Referring Provider: Zain Gaytan MD [address] [place] [address] Other: Dr Renita Nelson Problem Noted Date [...] on file Legal Sex Female 3:48 AM SWEATBAND SEPARATOR Gender Identity Not on file Sexual Orientation [...] Insurance MEDICARE PART A AND B [facility] Care Teams Ore Grader Relationship Specialty Start Date End Date Zain Gaytan MD PCP - General Internal Medicine 05/15/15
[2025-02-07 09:55] LABS: Toxigenic C. Diff NEGATIVE (NEGATIVE)
== END 2025-02-07 08:29 | disposition home or self-care (01) ==
LOC: ANHLAB 08:29
PROVIDERS: PCP Internal Medicine; Visit Provider Clinical Nurse Specialist
DX: R19.7 Diarrhea, unspecified (principal)
CPT/HCPCS: 87045; 87177; 87209; 87427; 87449; 87493; 89055

== ENCOUNTER 2025-06-19 13:36 | Outpatient (CLI) | payer MEDICARE, SELFPAY ==
--- NOTE | ~2025-06-19 | US_ITS ---
EXAMINATION: US carotid duplex BI DATE: 06/20/2025 0:39 CDT INDICATION: Vision abnormality TECHNIQUE: Grayscale, color Doppler, and pulsed Doppler images of the cervical carotid arteries were obtained. The degree of vessel stenosis is placed in one of the following categories: normal, <50%, 50-69%, >=7 0% but less than near-occlusion, near-occlusion, or total occlusion. Note that percent stenosis relative to normal distal artery lumen diameter is indirectly measured fro m velocity measurements as described originally by Dalton, et al. Radiology 2003; 229:340-346 and upda casey by Oliver Church et al STROKE 2012;43(3);915-921. COMPARISON: None. FINDINGS: There is mild atherosclerosis of both carotid arteries. Peak systolic velocity (in cm/s) is detailed below RIGHT: Right common carotid artery (CCA): 131 cm/s. Right internal carotid artery (ICA) PSV: 98 cm/s. Right ICA end-diastolic velocity (EDV): 31 cm/s. Right ICA/CCA PSV ratio is 0.7. Right external carotid artery (ECA): 49cm/s. There is antegrade flow in the right vertebral artery LEFT: Left common carotid artery (CCA): 100 cm/s. Left internal carotid artery (ICA) PSV: 162 cm/s. Left ICA end-diastolic velocity (EDV): 43 cm/s. Left ICA/CCA PSV ratio is 1.6. Left external carotid artery (ECA): 101cm/s. There is antegrade flow in the left vertebral artery. IMPRESSION: 1. Less than 50% stenosis in the right internal carotid artery. 2. 50-69% stenosis in the left internal carotid artery. Reviewed, dictated and finalized at location A.
--- NOTE | ~2025-06-19 | MR_ITS ---
MRI of the brain Clinical History: Headache Technique: Axial and sagittal T1-weighted images were acquired. These were followed by axial T2-weigh casey, diffusion weighted, gradient, and FLAIR images. Following intravenous administration of 15 cc Mu ltiHance gadolinium, T1-weighted fat-sat imaging was performed in the axial and coronal planes. Findings: There is no acute infarct, intracranial hemorrhage, mass lesion. There are minimal chronic microvascular ischemic changes in the periventricular white matter bilaterally. Ventricles and subarachnoid spaces are unremarkable. Orbits are unremarkable. Paranasal sinuses and m astoid air cells are clear. Major intracranial flow voids are intact. Sagittal midline structures are intact. No abnormal postcontrast enhancement identified. IMPRESSION: Minimal chronic microvascular ischemic change, otherwise unremarkable exam. Reviewed, dictated and finalized at location M.
--- OUTSIDE RECORDS SUMMARY | 2025-06-19 13:42 | XMS_ITS | Referral Summary ---
Author Organization [facility] [address] [facility] [address] Address [address] [place] [address] Care Team Providers Care Quality Nurse Name Role Phone Benjamin Rees DO Primary Care Provider +1- [phone] Encounters Date Type Department Care Team Description 05/28/2025 8:00 AM CDT Office Visit [facility] Cardiology [address] [facility] [address] [place] [address] Jeff Tobar MD Paroxysmal atrial fibrillation (HCC) (Primary Dx); HTN (hypertension), benign; Mixed hyperlipidemia; Symptomatic PVCs; Chronic anticoagulation from Last 3 Months Allergies Active Allergy [...] total) Active cyanocobalamin (Vitamin B-12) 1,000 mcg tabletIndication s:Prevention of Vitamin B12 Deficiency Take 1 tablet (1,000 mcg total) by mouth daily Active cholecalciferol (VITAMIN D-3) 400 unit capsule Act marcus ascorbic acid (ascorbic acid with shakira hips) 500 mg tablet,chewable Acti ve rivaroxaban (Xarelto) 20 mg tablet Take 1 tablet (20 mg total) by mouth daily 90 tablet 3 4 Active losartan (COZAAR) 25 mg tabletIndication s:Labile hypertension Take 2 tablets (50 mg total) by mouth daily 4 10/02/20 25 Active Additional Information Patient not taking.Reported on 05/28/2025 sotaloL (BETAPACE) 80 mg tablet Take 1 [...] on file Legal Sex Female 7:54 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 MEDICARE SUPPLEMENT Care Teams Quality Nurse Relationship Specialty Start Date End Date Benjamin Rees DO PCP - General Internal Medicine 02/26/20
--- OUTSIDE RECORDS SUMMARY | 2025-06-19 13:42 | XMS_ITS | Encounter Summary ---
Author Organization [facility] Address [address] [place] [address] Care Team Providers Care Technical Professional Name Role Phone Jake Cole MD Primary Care Provider +1- [phone] Vivian Cooper MD Primary Care Provider Benjamin Rees DO Primary Care Provider +1- [phone] Encounter Details Date Type Department Care Team (Late st Contact Info) Description 07/19/2018 Orders Only [facility] [place] Health Information Management [address] [place] [address] Scanning, Provider Social History Tobacco Use Types Packs/Day Years Used Date Smoking Tobacco: Former Smokeless Tobacco: Never Alcohol Use Standard Drinks/Week Comments No 0 (1 standard drink = 0.6 oz pur e alcohol) Comments Unknown Sex and Gender Information Value Date Recorded Sex Assigned at Not on file Legal Sex Female 7:54 PM SLASHER TENDER HELPER Gender Identity Not on file Sexual Orientation Not on file documented as of this encounter Plan of Treatment Not on file documented as of this encounter Procedures Procedure Name Priority Date/Time Associated Diagnosis Comments CARDIOLOGY DOCUMENT SCAN 07/19/2018 documented in this encounter Results * Cardiology Document Scan (07/19/2018) Anatomical Region Laterality Modality Other us Provider Scanning CV CARDIAC SERVICES PROCEDURES Final Result documented in this encounter Visit Diagnoses Not on filedocumented in this encounter Care Teams Technical Professional Relationship Specialty Start Date End Date Jake Cole MD [address] [place] [address] PCP - General Family Practice 07/08/18 09/03/19 Vivian Cooper MD [address] [place] [address] PCP - General Family Medicine 09/04/19 02/25/20 Benjamin Rees DO [address] [place] [address] PCP - General Internal Medicine 02/26/20 documented as of this encounter
--- OUTSIDE RECORDS SUMMARY | 2025-06-19 13:42 | XMS_ITS | Clinical Summary ---
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 Gender Identity Not on file Sexual Orientation Not on file Last Filed Vital Signs Vital Sign Reading Time Taken Comments Blood Pressure 131/73 05/20/2015 10:00 AM CDT Pulse 54 05/20/2015 10:00 AM CDT Temperature - - Respiratory Rate - - Oxygen Saturation - - Inhaled Oxygen Concentration - - Weight 84.8 kg (187 lb) 05/20/2015 10:00 AM CDT Height 172.7 cm (5' 8) 05/20/2015 10:00 AM CDT Body Mass Index 28.43 05/20/2015 10:00 AM CDT Plan of Treatment Health Maintenance Due Date Last Done Comments DTAP/TDAP/TD VACCINES (1 - Tdap) 1960 PNEUMOCOCCAL VACCINE 50+ YEARS (1 of 1 - PCV) 10/07/19 91 ZOSTER VACCINE (1 of 2) 1991 OSTEOPOROSIS SCREENING 2006 RSV VACCINE (60+ or ) (1 - 1-dose 75+ series) 2016 INFLUENZA VACCINE (#1) 2025 Insurance MEDICARE PART A AND B [facility] Care Teams Gasser Machine Operator Relationship Specialty Start Date End Date Zain Gaytan MD PCP - General Internal Medicine 05/15/15
--- OUTSIDE RECORDS SUMMARY | 2025-06-19 13:42 | XMS_ITS | Encounter Summary ---
Author Organization [facility] Address [address] [facility] Attn: [place] [address] Care Team Providers Care Acupressurist Name Role Phone Zain Gaytan MD Primary [...] on file Legal Sex Female 3:48 AM TELEPHONIC RN Gender Identity Not on file Sexual Orientation Not on file documented as of this encounter Plan of Treatment Not on file documented as of this encounter Visit Diagnoses Not on filedocumented in this encounter Care Teams Acupressurist Relationship Specialty Start Date End Date Zain Gaytan MD PCP - General Internal Medicine 05/15/15 documented as of this encounter
--- OUTSIDE RECORDS SUMMARY | 2025-06-19 13:42 | XMS_ITS | Clinical Summary ---
Author Organization [facility] [address] Address [address] [place] [address] Care Team Providers Care Decorative Cutting Machine Tender Name Role Phone Benjamin Rees DO Primary Care Provider +1- [phone] Allergies Active Allergy Reactions Criticality Noted Date [...] Description 05/28/2025 8:00 AM CDT Office Visit [facility] Medical Group Cardiology [address] [place] [address] Jeff Tobar MD Paroxysmal atrial fibrillation (HCC) (Primary Dx); HTN (hypertension), benign; Mixed hyperlipidemia; Symptomatic PVCs; Chronic anticoagulation from Last 3 Months Medical History Medical History Date Comments Hyperlipidemia Atrial fibrillation (HCC) Family History Medical History Relation Name Comments Prostate cancer Father Cancer, pros jaime; Stroke Mother Stroke; Diabetes Sister Diabetes mellit ; Heart disease Son Cardiovascular disease; Relation Name [...] on file Legal Sex Female 7:54 PM GLACIOLOGIST Gender Identity Not on file Sexual Orientation [...] 05/28/2025 7:58 AM CDT Plan of Treatment Health Maintenance Due Date Last Done Comments Depression Screening 1941 Fall Risk Assessment 1941 Osteoporosis Screening-Bone Density Scan 1941 DTaP/Tdap/Td Vaccine (1 - Tdap) 1952 Hepatitis B Screening 1959 Well Visit 65+ 2006 Zoster Vaccine (2 of 3) 10/19/2012 08/24/2012 Pneumococcal vaccine 65+ (2 of 2 - PPSV23) 10/17/2019 10/17/2018 Influenza Vaccine (#1) 2025 9, 08/03/2018, 08/15/2017, Additional history exists Insurance MEDICARE MEDICARE [facility] MEDICARE SUPPLEMENT Member Subscriber Plan / Payer (Ef fective 2021-Present) Name:Roxana Barragan Relation to Subscriber:Self Name:Roxana Barragan Payer ID:[id number] Group ID:[id number] Type:COMMERCIAL Address: [facility] [address] [place] [id number] Care Teams Decorative Cutting Machine Tender Relationship Specialty Start Date End Date Benjamin Rees DO PCP - General Internal Medicine 02/26/20
--- OUTSIDE RECORDS SUMMARY | 2025-06-19 13:42 | XMS_ITS | Encounter Summary ---
Author Organization [facility] Healthcare Address [address] [place] [address] Care Team Providers Care Food Preparation Kitchen Aide Name Role Phone Jake Cole MD Primary Care Provider +1- [phone] Vivian Cooper MD Primary Care Provider Benjamin Rees DO Primary Care Provider +1- [phone] Encounter Details Date Type Department Care Team (Late st Contact Info) Description 07/09/2018 Orders Only [facility] Information Management [address] [place] [address] Scanning, Provider Social History Tobacco Use Types Packs/Day Years Used Date Smoking Tobacco: Former Smokeless Tobacco: Never Alcohol Use Standard Drinks/Week Comments No 0 (1 standard drink = 0.6 oz pur e alcohol) Comments Unknown Sex and Gender Information Value Date Recorded Sex Assigned at Not on file 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 Gender Identity Not on file Sexual Orientation Not on file documented as of this encounter Plan of Treatment Not on file documented as of this encounter Procedures Procedure Name Priority Date/Time Associated Diagnosis Comments CARDIOLOGY DOCUMENT SCAN 07/09/2018 documented in this encounter Results * Cardiology Document Scan (07/09/2018) Anatomical Region Laterality Modality Other us Provider Scanning CV CARDIAC SERVICES PROCEDURES Final Result documented in this encounter Visit Diagnoses Not on filedocumented in this encounter Care Teams Food Preparation Kitchen Aide Relationship Specialty Start Date End Date Jake Cole MD [address] [place] [address] PCP - General Family Practice 07/08/18 09/03/19 Vivian Cooper MD [address] [place] [address] PCP - General Family Medicine 09/04/19 02/25/20 Benjamin Rees DO [address] [place] [address] PCP - General Internal Medicine 02/26/20 documented as of this encounter
== END 2025-06-19 13:37 | disposition home or self-care (01) ==
PROVIDERS: PCP Internal Medicine; Visit Provider Nurse Practitioner
DX: I65.23 Occlusion and stenosis of bilateral carotid arteries (principal); R20.0 Anesthesia of skin
CPT/HCPCS: 70553; 93880; A9577

== ENCOUNTER 2025-09-12 12:08 | Outpatient (CLI) | payer MEDICARE, SELFPAY ==
--- NOTE | ~2025-09-12 | MM_ITS ---
EXAMINATION: MM screening [facility] BI w wilver HISTORY: Screening TECHNIQUE: Craniocaudal and mediolateral oblique 3-D tomosynthesis images were obtained and synthetic 2-D images were generated. CAD analysis was submitted and interpreted. COMPARISON: Comparison to multiple prior studies sequentially, with oldest reviewed study dated 10/12/2018. BREAST PARENCHYMAL COMPOSITION: Not dense: There are scattered areas of fibroglandular density. FINDINGS: There is no evidence of suspicious mass, calcification, or architectural distortion to suggest malignancy in either breast. There has been no suspicious interval change. IMPRESSION: 1. No mammographic evidence of malignancy. 2. Recommend routine screening mammography in one year. BI-RADS Category 1: Negative Reviewed, dictated and finalized at location B.
== END 2025-09-12 12:09 | disposition home or self-care (01) ==
LOC: MICIMG 12:11
PROVIDERS: PCP Obstetrics & Gynecology; Visit Provider Nurse Practitioner
DX: Z12.31 Encounter for screening mammogram for malignant neoplasm of breast (principal)
CPT/HCPCS: 77063; 77067

== ENCOUNTER 2025-10-17 11:11 | Outpatient (CLI) | payer MEDICARE, SELFPAY ==
--- OUTSIDE RECORDS SUMMARY | 2025-10-17 12:50 | XMS_ITS | Clinical Summary ---
Author Organization [facility] [address] Address [address] [place] [address] Care Team Providers Care Senior National Account Manager Name Role Phone Benjamin Rees DO Primary Care Provider +1- [phone] Allergies Active Allergy Reactions Criticality Noted Date [...] shakira hips) 500 mg tablet,chewable Acti ve losartan (COZAAR) 25 mg tabletIndication s:Labile hypertension Take 2 tablets (50 mg total) by mouth daily 4 Active Additional Information Patient not taking.Reported on 07/25/2025 sotaloL (BETAPACE) 80 mg tablet Take 1 tablet (80 mg total) by mouth 2 (two) times a day 180 tablet 2 5 Active rivaroxaban (Xarelto) 20 mg tablet TAKE 1 TABLET DAILY 90 tablet 2 5 Active d-mannose powder Take by mouth Active magnesium oxide 400 mg magnesium capsule Take by mouth Active lisinopriL (PRINIVIL,ZESTRI L) 5 mg tablet 5 Active Active Problems Problem Noted Date Diagnosed Date Stenosis of left carotid artery 07/31/2025 Assessment & Plan (07/31/2025 11:58 AM CDT): Asymptomatic moderate 50-69% stenosis of the left ICA. Discussed findings with the patient with recommendation for ongoing surveillance and maximal medical therapy. Recommend 81 mg ASA, and statin therapy and good blood pressure control. We will follow up in 1 year with repeat carotid duplex. 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 Resolved Problems Problem Noted Date Diagnosed Date Resolved Date Dyslipidemia 07/02/2017 12/24/2021 Encounters Date Type Department Care Team Description 07/25/2025 10:30 AM CDT Office Visit [facility] at [address] [place] [address] Ever Zamora MD Stenosis of left carotid artery (Primary Dx); Mixed hyperlipidemia; HTN (hypertension), benign 07/25/2025 Orders Only [facility] at [address] [place] [address] Ever Zamora MD Carotid stenosis, left (Primary Dx) from Last 3 Months Medical History Medical [...] on file 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 Gender Identity Not on file Sexual Orientation Not on file Last Filed Vital Signs Vital Sign Reading Time Taken Comments Blood Pressure 133/68 07/25/2025 10:36 AM CDT Pulse 59 07/25/2025 10:36 AM CDT Temperature - - Respiratory Rate 18 05/28/2025 7:58 AM CDT Oxygen Saturation 98% 07/25/2025 10:36 AM CDT Inhaled Oxygen Concentration - - Weight 68 kg (150 lb) 07/25/2025 10:36 AM CDT Height 170.2 cm (5' 7) 07/25/2025 10:36 AM CDT Body Mass Index 23.49 07/25/2025 10:36 AM CDT Plan of Treatment Health Maintenance Due Date Last Done Comments Depression Screening 1941 Fall Risk Assessment 1941 Osteoporosis Screening-Bone Density Scan 1941 DTaP/Tdap/Td Vaccine (1 - Tdap) 1952 Hepatitis B Screening 1959 Well Visit 65+ 2006 Pneumococcal vaccine 65+ (2 of 2 - PCV20 or PCV21) 10/17/2019 10/17/2018 Influenza Vaccine (#1) 2025 , 07/21/2020, 08/16/2019, Additional history exists Zoster Vaccine Completed 2020, 04/2020, 08/24/2012 Insurance MEDICARE MEDICARE BLUE CROSS MEDICARE SUPPLEMENT Care Teams Senior National Account Manager Relationship Specialty Start Date End Date Benjamin Rees DO PCP - General Internal Medicine 02/26/20
--- OUTSIDE RECORDS SUMMARY | 2025-10-17 12:50 | XMS_ITS | Clinical Summary ---
Author Organization [facility] [place] Address [address] [place] [address] Phone Care Team Providers Care Behavioral Health Counselor Name Role Phone Zain Gaytan MD Primary [...] MD Referring Provider: Zain Gaytan MD [address] [place] [address] Other: [facility] Mar[facility] Problem Noted Date Diagnosed Date Lump of breast, left 04/24/2015 Family History Medical History Relation Name Comments Breast Cancer Maternal Aunt Cancer Mother Diabetes Sister Relation Name Status Comments Maternal Aunt Mother Sister Social History Tobacco Use Types Packs/Day Years Used Date Smoking Tobacco: Former Cigarettes 0 Q uit: 11/15/1989 Smokeless Tobacco: Never Tobacco Cessation:Counseling Given: No Alcohol Use Standard Drinks/Week Comments Yes 0 (1 standard drink = 0.6 oz pur e alcohol) rare Comments No Sex and Gender Information Value Date Recorded Sex Assigned at Not on file 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
--- OUTSIDE RECORDS SUMMARY | 2025-10-17 12:50 | XMS_ITS | Encounter Summary ---
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
--- OUTSIDE RECORDS SUMMARY | 2025-10-17 12:50 | XMS_ITS | Encounter Summary ---
Author Organization [facility] Healthcare Address [address] [place] [address] Care Team Providers Care Rn Social Services Name Role Phone Jake Cole MD Primary Care Provider +1- [phone] Vivian Cooper MD Primary Care Provider Benjamin Rees DO Primary Care Provider +1- [phone] Encounter Details Date Type Department Care Team (Late st Contact Info) Description 07/19/2018 Orders Only [facility] Health Information Management [address] [place] [address] Scanning, Provider Social History Tobacco Use Types Packs/Day Years Used Date Smoking Tobacco: Former Smokeless Tobacco: Never Alcohol Use Standard Drinks/Week Comments No 0 (1 standard drink = 0.6 oz pur e alcohol) Comments Unknown Sex and Gender Information Value Date Recorded Sex Assigned at Not on file 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
--- OUTSIDE RECORDS SUMMARY | 2025-10-17 12:50 | XMS_ITS | Encounter Summary ---
Author Organization [facility] Healthcare Address [address] [place] [address] Care Team Providers Care Enamel Drier Name Role Phone Jake Cole MD Primary Care Provider +1- [phone] Vivian Cooper MD Primary Care Provider Benjamin Rees DO Primary Care Provider +1- [phone] Encounter Details Date Type Department Care Team (Late st Contact Info) Description 07/09/2018 Orders Only [facility] Health Information Management [address] [place] [address] Scanning, Provider Social History Tobacco Use Types Packs/Day Years Used Date Smoking Tobacco: Former Smokeless Tobacco: Never Alcohol Use Standard Drinks/Week Comments No 0 (1 standard drink = 0.6 oz pur e alcohol) Comments Unknown Sex and Gender Information Value Date Recorded Sex Assigned at Not on file 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 Gender Identity Not on file Sexual Orientation Not on file documented as of this encounter Functional Status * BP Location Answer Date of Assessment Author Right arm 07/11/2018 10:06 AM Marietta Louis MA * BP Location Answer Date of Assessment Author Right arm 07/11/2018 10:06 AM Marietta Louis MA documented as of this encounter Plan of [...] on filedocumented in this encounter Care Teams Enamel Drier Relationship Specialty Start Date End Date Jake Cole MD [address] [place] [address] PCP - General Family Practice 07/08/18 09/03/19 Vivian Cooper MD [address] [place] [address] PCP - General Family Medicine 09/04/19 02/25/20 Benjamin Rees DO [address] [place] [address] PCP - General Internal Medicine 02/26/20 documented as of this encounter
--- OUTSIDE RECORDS SUMMARY | 2025-10-17 13:53 | XMS_ITS | Encounter Summary ---
Author Organization [facility] Healthcare Address [address] [place] [address] Care Team Providers Care Patrol Driver Name Role Phone Jake Cole MD Primary Care Provider +1- [phone] Vivian Cooper MD Primary Care Provider Benjamin Rees DO Primary Care Provider +1- [phone] Encounter Details Date Type Department Care Team (Late st Contact Info) Description 07/19/2018 Orders Only [facility] Health Information Management [address] [place] [address] Scanning, Provider Social History Tobacco Use Types Packs/Day Years Used Date Smoking Tobacco: Former Smokeless Tobacco: Never Alcohol Use Standard Drinks/Week Comments No 0 (1 standard drink = 0.6 oz pur e alcohol) Comments Unknown Sex and Gender Information Value Date Recorded Sex Assigned at Not on file 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
--- OUTSIDE RECORDS SUMMARY | 2025-10-17 13:53 | XMS_ITS | Clinical Summary ---
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
--- OUTSIDE RECORDS SUMMARY | 2025-10-17 13:53 | XMS_ITS | Clinical Summary ---
Author Organization [facility] [address] Address [address] [place] [address] Care Team Providers Care Blender Helper Name Role Phone Benjamin Rees DO Primary Care Provider +1- [phone] Allergies Active Allergy Reactions Criticality Noted Date [...] 07/25/2025 10:30 AM CDT Office Visit [facility] at [address] [place] [address] Ever Zamora MD Stenosis of left carotid artery (Primary Dx); Mixed hyperlipidemia; HTN (hypertension), benign 07/25/2025 Orders Only [facility] at [address] [place] [address] Ever Zamora MD Carotid stenosis, [...] on file 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
--- OUTSIDE RECORDS SUMMARY | 2025-10-17 13:53 | XMS_ITS | Encounter Summary ---
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
--- OUTSIDE RECORDS SUMMARY | 2025-10-17 13:53 | XMS_ITS | Encounter Summary ---
Author Organization [facility] Healthcare Address [address] [place] [address] Care Team Providers Care Reconnaissance Crewmember Name Role Phone Jake Cole MD Primary Care Provider +1- [phone] Vivian Cooper MD Primary Care Provider Benjamin Rees DO Primary Care Provider +1- [phone] Encounter Details Date Type Department Care Team (Late st Contact Info) Description 07/09/2018 Orders Only [facility] Health Information Management [address] [place] [address] Scanning, Provider Social History Tobacco Use Types Packs/Day Years Used Date Smoking Tobacco: Former Smokeless Tobacco: Never Alcohol Use Standard Drinks/Week Comments No 0 (1 standard drink = 0.6 oz pur e alcohol) Comments Unknown Sex and Gender Information Value Date Recorded Sex Assigned at Not on file 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
[2025-10-17 18:52] LABS: Alanine Aminotransferase 20 U/L (6-35); Albumin Level 4.3 g/dL (3.5-5.1); Alkaline Phosphatase 72 U/L (38-126); Anion Gap 2 mmol/L (4-12); Aspartate Amino Transferase 30 U/L (14-36); Bilirubin,Total 0.5 mg/dL (0.2-1.3); Blood Urea Nitrogen 13 mg/dL (7-17); Calcium 9.4 mg/dL (8.4-10.2); Carbon Dioxide 29 mmol/L (22-30); Chloride 97 mmol/L (98-107); Estimated Glomerular Filt Rate > 60; Glucose 100 mg/dL (65-110); Potassium 4.5 mmol/L (3.4-5.0); Sodium 128 mmol/L (137-145); Total Protein 7.5 g/dL (6.3-8.2)
[2025-10-17 18:54] LABS: Iron 103 ug/dL (37-170)
[2025-10-17 18:55] LABS: Hematocrit 40.9 % (37.0-47.0); Hemoglobin 13.7 g/dL (12.0-15.0); Immature Granulocyte Percent A 0.4 % (0-0.5); Lymphocytes Absolute Auto 2.96 K/mm3 (0.9-3.2); Mean Corpuscular HGB Conc 33.5 g/dl (32-36); Mean Corpuscular Hemoglobin 32.0 pg (26-34); Mean Corpuscular Volume 95.6 fl (80-100); Nucleated Red Blood Cells Absolute Auto 0.000 K/mm3 (0.0-0.012); Nucleated Red Blood Cells Perc 0.0 % (0.0-0.2); Platelet Count Result 281 k/mm3 (150-375); Red Blood Count 4.28 M/mm3 (4.2-5.4); White Blood Count 8.3 K/mm3 (4.5-10.0)
[2025-10-17 19:08] LABS: Add Urine Microscopic? YES; Appearance Urine Clear (Clear); Glucose Urine UA Negative (Negative); Leukocyte Esterase Ur 1+ LEU/UL (Negative); Nitrate Urine Positive (Negative); Non Pathogenic Casts 0-2; Specific Grav Ur 1.006 (1.001-1.035)
[2025-10-17 19:16] LABS: Percent Iron Saturation 32 % (20-50)
[2025-10-17 19:30] LABS: Thyroid Stimulating Hormone 1.930 uIU/mL (0.465-4.680)
[2025-10-17 19:39] LABS: Ferritin 89.10 ng/mL (11.1-264)
[2025-10-17 20:08] LABS: Vitamin B12 > 1000.0 pg/mL (239-931)
[2025-12-14 08:08] LABS: Lead, Urine None Detected ug/L (0-49)
== END 2025-10-17 11:12 | disposition home or self-care (01) ==
PROVIDERS: PCP Internal Medicine
DX: N39.0 Urinary tract infection, site not specified (principal); R20.0 Anesthesia of skin; R20.2 Paresthesia of skin; R53.83 Other fatigue; D64.9 Anemia, unspecified; M79.604 Pain in right leg; Z79.899 Other long term (current) drug therapy
CPT/HCPCS: 36415; 80053; 81001; 82175; 82570; 82607; 82728; 82746; 83540; 83550; 83655; 83825; 84207; 84443; 85025; 87086; 87147; 87186